=== PATIENT | female | born 1945 | race Caucasian/White ===

== ENCOUNTER 2019-08-30 11:39 | Emergency (ER) | payer MEDICARE, SELFPAY ==
[2019-08-30 12:21] VITALS: BP 122/51; PULSE 78; RESP 20; TEMP 37; O2SAT 96
--- NOTE | 2019-08-30 13:00 | ED.FEMALEGU ---
HPI - Female Genitourinary General Chief complaint: Urogenital-Female Stated complaint: pos uti Time Seen by Provider: 08/30/19 13:00 Source: patient Mode of arrival: ambulatory Limitations: no limitations History of Present Illness HPI Narrative: A 74 y/o female, who is a nonsmoker/nondrinker, presents to with c/o urinary frequency and urgency for 4-5 days. Pt has a PMHx of UTIs and notes that her current symptoms are similar. Pt states that she had to change clothes 5 times throughout the night because she could not make it to the bathroom in time. She denies a fever, N/V/D, dysuria, and ABD pain, and she has sensitivity to Macrobid Pertinent past history: recurrent UTIs Onset (ago): day(s) (4-5) Urinary symptoms: Urgency and Frequency Related Data Home Medications Medication Instructions Recorded Confirmed levothyroxine 75 mcg PO DAILY 08/30/19 08/30/19 lisinopril-hydrochlorothiazide 1 tablet PO DAILY 08/30/19 08/30/19 metoprolol tartrate 50 mg PO DAILY 08/30/19 08/30/19 teriflunomide [Aubagio] 14 mg PO DAILY 08/30/19 08/30/19 tolterodine 4 mg PO DAILY 08/30/19 08/30/19 triamcinolone acetonide 1 applic TOPICAL BID 08/30/19 08/30/19 Allergies Allergy/AdvReac Type Severity Reaction Status Date / Time iodine Allergy Unknown Swelling Verified 08/30/19 12:28 of Lip/Tongue/Throat Review of Systems Review of Systems: Narrative: General/Constitutional: Denies: weight loss,fever Eyes: Denies: Redness,discharge Ears/Nose/Throat: Denies: Epistaxis,ear discharge Respiratory: Denies: Hemoptysis Gastrointestinal: Denies: N/V/D, ABD pain, Bleeding-rectal Urinary: Reports: urinary frequency, urinary urgency; Denies: dysuria Skin: Denies: Lumps, eruption Neurologic: Denies: Focal Weakness,Sz Hematologic: Denies: Petechiae/Purpura Psychiatric: Denies: Suicidal ideation All systems reviewed & are unremarkable except as noted in HPI and below [facility] Social History Social History (Updated 08/30/19 @ 13:14 by Imani Nava) Smoking status: Never smoker Alcohol intake: never Comments PCP: Dr. Rodriguez At time of signature, agree with nursing past medical, surgical, social and family history. There is no relevant family history pertinent to the presenting complaint Exam Narrative: Exam Narrative: General Appearance: Well appearing, No distress EYE: PERRLA, Conjunctiva clear Ears: External ear normal Nose: Normal nose Mouth/Throat: Normal appearing, Normal lips Neck: Supple Respiratory: Airway patent, No respiratory distress Cardiovascular: RRR Abdomen: Soft, Non-tender, No masses Musculoskeletal: Full ROM Skin: Warm, Dry Neurological: A&O x3, CN II-X intact Psychiatric: Normal mood, Normal affect Course Vital Signs Vital signs: Vital Signs Temperature 98.6 F 08/30/19 12:21 Pulse Rate 78 08/30/19 12:21 Respiratory Rate 20 08/30/19 12:21 Blood Pressure 122/51 L 08/30/19 12:21 Pulse Oximetry 96 08/30/19 12:21 Temperature 98.6 F 08/30/19 12:21 Pulse Rate 78 08/30/19 12:21 Respiratory Rate 08/30/19 12:21 Blood Pressure 122/51 L 08/30/19 12:21 Pulse Oximetry 96 08/30/19 12:21 MDM - Female Genitourinary Lab Data Labs: Influenza A Screen Negative Reference Range: Negative Influenza B Screen Negative Reference Range: Negative Urine Glucose Negative Reference Range: Negative Urine Bilirubin 1+ Reference Range: Negative Urine Ketone Negative Reference Range: Negative Urine Specific Thurston 1.025 Reference Range:1.001-1.035 Urine Blood 2+ Reference Range: Negative * * Urine pH 5.5 Reference Range: 5.0-9.0 Urine Protein 2+ Reference Range: Negative Urine Urobilinogen 0.2 Refe
== END 2019-08-30 13:48 | disposition home or self-care (01) ==
PROVIDERS: Emergency Provider Emergency Medicine
DX: N30.00 Acute cystitis without hematuria (principal)
CPT/HCPCS: 81003; 87077; 87086; 87088; 87186; 87804; 99213; G0463

== ENCOUNTER 2020-02-18 13:08 | Outpatient (CLI) | payer MEDICARE, SELFPAY ==
--- NOTE | ~2020-02-18 | US_ITS ---
US thyroid INDICATION: Thyroid goiter TECHNIQUE: Real-time sonographic images of the thyroid gland were obtained. COMPARISON: No prior studies for comparison. FINDINGS: The right thyroid lobe measures 3.3 x 0.9 x 1.3 cm. The left thyroid lobe measures 2.7 x 0 .8 x 0.8 cm. There is normal echotexture and echogenicity throughout the thyroid gland. No discrete n odules identified. Normal vascular flow is present. IMPRESSION: 1. Normal thyroid without discrete nodule or abnormal vascularity. Reviewed, dictated and finalized at location A.
== END 2020-02-18 13:09 | disposition home or self-care (01) ==
PROVIDERS: PCP Internal Medicine; Visit Provider Nurse Practitioner
DX: E04.9 Nontoxic goiter, unspecified (principal)
CPT/HCPCS: 76536

== ENCOUNTER 2020-03-23 01:49 | Outpatient (CLI) | payer MEDICARE, SELFPAY ==
[2020-03-23 20:48] LABS: SARS-CoV-2 RNA PCR Negative
== END 2020-03-23 01:50 | disposition home or self-care (01) ==
LOC: ANHCOVIDDT 01:49
PROVIDERS: PCP Internal Medicine; Visit Provider Internal Medicine Gastroenterology
DX: Z01.812 Encounter for preprocedural laboratory examination (principal); Z20.828 Contact with and (suspected) exposure to other viral communicable diseases
CPT/HCPCS: 87635; C9803; U0003

== ENCOUNTER 2020-03-25 01:14 | Day surgery (SDC) | payer MEDICARE, SELFPAY ==
[2020-03-17 12:20] VITALS: BMI 27.4
[2020-03-25 07:28] VITALS: BP 144/63; PULSE 56; RESP 20; TEMP 36.6; O2SAT 99; BMI 25.2
[2020-03-25] MEDS: LACTATED RINGERS 1,000 ML 150 ML IV CONT (07:39)
--- NOTE | 2020-03-25 07:58 | WPDGICN ---
Assessment and Plan Assessment and plan (1) Anemia: Code(s): D64.9 - Anemia, unspecified Status: Acute Assessment and Plan: Patient with anemia of uncertain etiology. This been present long-term a GI endoscopy is required. Her hemoglobin is only mildly deficient at 11.2, hematocrit 34.8 MCV 93. Iron of 76 TIBC 223, 34% saturation with a ferritin of 661. These numbers make it hard to ascribe it to iron deficiency. But because of progressive long-term anemia GI endoscopy appears prudent. Plan is per Molly charles with both colonoscopy an EGD. Patient does give a distant history of acid reflux currently maintained on omeprazole. As stated both colonoscopy an EGD will be performed to assess for possible GI etiology for anemia. Otherwise consider anemia of chronic disease. GI Consult Note Consult date/time: 03/25/20 07:58 HPI: Stacy Crocker is a 74 year old female Presents for evaluation of anemia. Patient states she has been anemic for some time. No obvious blood loss has been encountered. She denies abdominal pain. Her bowel habits are normal. She has had no bleeding elsewhere. Review of Systems Review of Systems: All systems reviewed & are unremarkable except as noted in HPI and below PMFSH Past Medical History Medical History Anemia Arthritis Cellulitis CPAP (continuous positive airway pressure) dependence GERD (gastroesophageal reflux disease) Heart murmur Hiatal hernia History of blood transfusion HTN (hypertension) Hyperthyroidism Hypothyroid Multiple sclerosis Osteoporosis Sleep apnea Surgical History Surgical History H/O left wrist surgery with plate History of appendectomy History of bilateral knee replacement History of bunionectomy right Social History Social History Smoking status: Never smoker Alcohol intake: never Meds Home Medications and Allergies Home Medications Medication Instructions Recorded Confirmed Type lisinopril-hydrochlorothiazide 1 tablet PO DAILY 08/30/19 03/17/20 History teriflunomide [Aubagio] 14 mg PO DAILY 08/30/19 03/17/20 History tolterodine 4 mg PO DAILY 08/30/19 03/17/20 History triamcinolone acetonide 1 applic TOPICAL BID PRN 08/30/19 03/17/20 History dextroamphetamine 15 mg PO DAILY 03/17/20 03/17/20 History levothyroxine [Euthyrox] 50 mcg PO DAILY 03/17/20 03/17/20 History metoprolol succinate 75 mg PO DAILY 03/17/20 03/17/20 History omeprazole magnesium [Prilosec OTC] 20 mg PO DAILY 03/17/20 03/17/20 History Allergies Allergy/AdvReac Type Severity Reaction Status Date / Time iodine Allergy Unknown Swelling Verified 03/25/20 07:26 of Lip/Tongue/Throat Iodinated Contrast Media Allergy Swelling Verified 03/25/20 07:26 of Lip/Tongue/Throat Iodine and Iodide Containing Allergy Swelling Verified 03/25/20 07:26 Produc of Lip/Tongue/Throat Vital Signs Vital Signs - 24 hr 03/25/20 07:28 Temperature 97.9 F Pulse Rate 56 L Respiratory Rate 20 Blood Pressure 144/63 H Pulse Oximetry 99 Exam Narrative: Exam Narrative: Physical exam reveals patient to be alert. Vital signs stable. HEENT exam unremarkable. Lungs are clear to auscultation and percussion. Heart is without murmur or extra sounds. Abdominal exam bowel sounds are present soft nontender with no organomegaly. Digital external rectal exam normal.
--- NOTE | 2020-03-25 08:31 | WPDANESEPPF ---
Anes - Initial Pre Proc Eval Procedure: Operation Date: 03/25/20 08:30 Proposed Procedures p Esophagogastroduodenoscopy & Colonoscopy - Thaddeus Bonner MD Date/Time: 03/25/20 08:31 Surgeon: Thaddeus Bonner MD Pre Op Diagnosis: Iron Deficiency Anemia Patient Data Age: 74 Gender: F Height: 5 ft 2 in Weight: 62.6 kg Last Vital Signs Temp 97.9 F 03/25/20 07:28 Pulse 56 L 03/25/20 07:28 Resp 20 03/25/20 07:28 BP 144/63 H 03/25/20 07:28 Pulse Ox 99 03/25/20 07:28 Allergies Allergy/AdvReac Type Severity Reaction Status Date / Time iodine Allergy Unknown Swelling Verified 03/25/20 07:26 of Lip/Tongue/Throat Iodinated Contrast Media Allergy Swelling Verified 03/25/20 07:26 of Lip/Tongue/Throat Iodine and Iodide Containing Allergy Swelling Verified 03/25/20 07:26 Produc of Lip/Tongue/Throat Home Medications Medication Instructions Recorded Confirmed Type lisinopril-hydrochlorothiazide 1 tablet PO DAILY 08/30/19 03/17/20 History teriflunomide [Aubagio] 14 mg PO DAILY 08/30/19 03/17/20 History tolterodine 4 mg PO DAILY 08/30/19 03/17/20 History triamcinolone acetonide 1 applic TOPICAL BID PRN 08/30/19 03/17/20 History dextroamphetamine 15 mg PO DAILY 03/17/20 03/17/20 History levothyroxine [Euthyrox] 50 mcg PO DAILY 03/17/20 03/17/20 History metoprolol succinate 75 mg PO DAILY 03/17/20 03/17/20 History omeprazole magnesium [Prilosec OTC] 20 mg PO DAILY 03/17/20 03/17/20 History Patient hx anesthesia problems: none Family hx anesthesia problems: none [facility] Past Medical History Medical History Anemia Arthritis Cellulitis CPAP (continuous positive airway pressure) dependence GERD (gastroesophageal reflux disease) Heart murmur Hiatal hernia History of blood transfusion HTN (hypertension) Hyperthyroidism Hypothyroid Multiple sclerosis Osteoporosis Sleep apnea Surgical History Surgical History H/O left wrist surgery with plate History of appendectomy History of bilateral knee replacement History of bunionectomy right Social History Social History Smoking status: Never smoker Alcohol intake: never Anes - Eval Final PreProcedure Day of Procedure 03/25/20 08:31 Patient weight: normal Heart: regular rate and rhythm Lungs: clear to auscultation Airway: Mallampati scale class II Neurological: alert and oriented Last oral intake: >/= 8 hours ASA classification: III Emergent: no Anesthetic plan: proceed Anesthesia type and monitoring: general GIVS and standard monitoring Informed Consent: The patient's anesthetic plan and its attendant risks and benefits were discussed with the patient/family/POA. Questions were solicited and answers provided to the satisfaction of the patient/family/POA.
[2020-03-25 09:08] VITALS: BP 98/50; PULSE 56; RESP 17; O2SAT 99
[2020-03-25 09:18] VITALS: BP 115/67; PULSE 60; RESP 18; O2SAT 100
[2020-03-25 09:28] VITALS: BP 130/65; PULSE 58; RESP 17; O2SAT 100
== END 2020-03-25 10:16 | disposition home or self-care (01) ==
PROVIDERS: PCP Internal Medicine; Visit Provider Internal Medicine Gastroenterology
PROC: 0DJ08ZZ Inspection of Upper Intestinal Tract, Via Natural or Artificial Opening Endoscopic (ICD-10-PCS; CPT 43235; principal; 2020-03-25 08:30)
DX: D64.9 Anemia, unspecified (principal); K63.5 Polyp of colon; K64.8 Other hemorrhoids; K44.9 Diaphragmatic hernia without obstruction or gangrene; K21.9 Gastro-esophageal reflux disease without esophagitis; I10 Essential (primary) hypertension; E03.9 Hypothyroidism, unspecified; G47.33 Obstructive sleep apnea (adult) (pediatric); I42.9 Cardiomyopathy, unspecified; G35 Multiple sclerosis; Z96.653 Presence of artificial knee joint, bilateral; Z79.899 Other long term (current) drug therapy
CPT/HCPCS: 45385; 43235; J2704; J7120

== ENCOUNTER 2022-12-19 15:30 | Emergency (ER) | payer MEDICARE, SELFPAY ==
--- NOTE | ~2022-12-19 | XR_ITS ---
EXAMINATION: XR finger 1st RT min 2V DATE: 12/19/2022 16:17 INDICATION: Right thumb pain and swelling. TECHNIQUE: 3 views of right thumb were obtained. COMPARISON: None. FINDINGS: There is radial subluxation of first distal phalanx with respect to the proximal phalanx. S capholunate dissociation is noted. There is old fracture of distal radius. There is severe osteoarthr itis of first carpometacarpal joint and first interphalangeal joint. 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 Reviewed, dictated and finalized at location A.
[2022-12-19 15:48] VITALS: BP 141/67; PULSE 66; RESP 18; TEMP 36.2; O2SAT 96
[2022-12-19 15:51] VITALS: BP 141/67; PULSE 66; RESP 18; TEMP 36.2; O2SAT 96
--- NOTE | 2022-12-19 16:06 | ED.GENADULT ---
HPI - General Adult General Chief complaint: Extremity Injury, Upper Stated complaint: swollen rt thumb Time Seen by Provider: 12/19/22 15:59 Source: patient and RN notes reviewed Mode of arrival: ambulatory Limitations: no limitations History of Present Illness HPI narrative: Patient presents today complaining of swelling, redness, and pain to her right thumb times 2-3 days. Denies fever. Currently rates her pain 9/10 and has been taking Advil with little relief. Denies numbness or tingling. Reports she does have some deformity of her thumb and, ?bump? to the ulnar side at baseline. Denies history of gout. No injury or trauma to the finger. Related Data Home Medications Medication Instructions Recorded Confirmed lisinopril 10 1 tablet PO DAILY 08/30/19 12/19/22 mg-hydrochlorothiazide 12.5 mg tablet dextroamphetamine sulfate 15 mg 15 mg PO DAILY 03/17/20 12/19/22 capsule,extended release levothyroxine 50 mcg tablet 50 mcg PO DAILY 03/17/20 12/19/22 (Euthyrox) metoprolol succinate 50 mg 75 mg PO DAILY 03/17/20 12/19/22 tablet,extended release 24 hr alpha lipoic acid 200 mg tablet 1,200 mg PO DAILY 12/19/22 12/19/22 amlodipine 2.5 mg tablet 2.5 mg PO DAILY 12/19/22 12/19/22 cholecalciferol (vitamin D3) 125 75 unit PO DAILY 12/19/22 12/19/22 mcg (5,000 unit) tablet (Vitamin D3) exemestane 25 mg tablet 25 mg PO DAILY 12/19/22 12/19/22 levocarnitine 500 mg capsule 500 mg PO QID 12/19/22 12/19/22 loratadine 5 mg-pseudoephedrine ER 1 tablet PO Q12H PRN Congestion 12/19/22 12/19/22 120 mg tablet,extended release,12hr (Claritin-D 12 Hour) pyridoxine (vitamin B6) 200 mg 200 mg PO DAILY 12/19/22 12/19/22 tablet,extended release vibegron 75 mg tablet (Gemtesa) 75 mg PO DAILY 12/19/22 12/19/22 Allergies Allergy/AdvReac Type Severity Reaction Status Date / Time iodine Allergy Unknown Swelling Verified 12/19/22 15:49 of Lip/Tongue/Throat Iodinated Contrast Media Allergy Swelling Verified 12/19/22 15:49 of Lip/Tongue/Throat Iodine and Iodide Containing Allergy Swelling Verified 12/19/22 15:49 Produc of Lip/Tongue/Throat Review of Systems Review of Systems: CONSTITUTIONAL: Denies body aches, fever, chills, or sweats. EYES: Denies visual changes, redness, or discharge. ENT: Denies rhinorrhea, congestion, sore throat, or otalgia. CARDIOVASCULAR: Denies chest pain, palpitations, or edema. RESPIRATORY: Denies cough or dyspnea. GASTROINTESTINAL: Denies abdominal pain, nausea, vomiting, or diarrhea. GENITOURINARY: Denies dysuria or hematuria. SKIN: Denies rash, itching, or wounds. MUSCULOSKELETAL: Denies back pain.+ right thumb redness, swelling, pain NEUROLOGIC: Denies headache, numbness, tingling, or weakness. PSYCH: Denies depression or anxiety. [facility] Past Medical History Medical History (Updated 12/19/22 @ 16:56 by Leila Carney, TWAN, ) Anemia Arthritis Cellulitis CPAP (continuous positive airway pressure) dependence GERD (gastroesophageal reflux disease) Heart murmur Hiatal hernia History of blood transfusion HTN (hypertension) Hyperthyroidism Hypothyroid Multiple sclerosis Osteoporosis Sleep apnea Surgical History Surgical History H/O left wrist surgery with plate History of appendectomy History of bilateral knee replacement History of bunionectomy right Family History Family History Father Emphysema lung Mother Emphysema lung Sibling Heart disease Sibling Polymyositis Social History Social History Smoking status: Never smoker Alcohol intake: never Substance use: never Comments At time of signature, I have reviewed and agree with nursing past medical, surgical, social and family history unless otherwise noted. Please see nursing chart
== END 2022-12-19 17:00 | disposition home or self-care (01) ==
PROVIDERS: Emergency Provider Nurse Practitioner; PCP Internal Medicine
DX: M25.441 Effusion, right hand (principal); M19.90 Unspecified osteoarthritis, unspecified site; K21.9 Gastro-esophageal reflux disease without esophagitis; R01.1 Cardiac murmur, unspecified; I10 Essential (primary) hypertension; E05.90 Thyrotoxicosis, unspecified without thyrotoxic crisis or storm; E03.9 Hypothyroidism, unspecified; G35 Multiple sclerosis; M81.0 Age-related osteoporosis without current pathological fracture; Z96.653 Presence of artificial knee joint, bilateral
CPT/HCPCS: 73140; 99213; G0463

== ENCOUNTER 2024-03-20 10:55 | Emergency (ER) | payer MEDICARE, SELFPAY ==
[2024-03-20 11:13] VITALS: BP 114/44; PULSE 102; RESP 16; TEMP 36.6; O2SAT 97
--- NOTE | 2024-03-20 11:49 | ED.FEMALEGU ---
HPI - Female Genitourinary General Chief complaint: Urogenital-Female Stated complaint: Think I have a UTI Time Seen by Provider: 03/20/24 11:49 Source: patient Mode of arrival: ambulatory Limitations: no limitations History of Present Illness HPI Narrative: 78-year-old female presents with complaint of urinary incontinence for the past 2-3 days. Patient reports that she takes a prescription medication, gemtesa, to help with urinary incontinence. Denies dysuria, frequency, urgency. Is concerned since medication is not helping with urinary incontinence she may have a urinary tract infection. No abdominal or back pain. All systems reviewed and negative except as noted above. Related Data Home Medications Medication Instructions Recorded Confirmed lisinopril 10 1 tablet PO DAILY 08/30/19 12/19/22 mg-hydrochlorothiazide 12.5 mg tablet dextroamphetamine sulfate 15 mg 15 mg PO DAILY 03/17/20 12/19/22 capsule,extended release levothyroxine 50 mcg tablet 50 mcg PO DAILY 03/17/20 12/19/22 (Euthyrox) metoprolol succinate 50 mg 75 mg PO DAILY 03/17/20 12/19/22 tablet,extended release 24 hr alpha lipoic acid 200 mg tablet 1,200 mg PO DAILY 12/19/22 12/19/22 amlodipine 2.5 mg tablet 2.5 mg PO DAILY 12/19/22 12/19/22 cholecalciferol (vitamin D3) 125 75 unit PO DAILY 12/19/22 12/19/22 mcg (5,000 unit) tablet (Vitamin D3) exemestane 25 mg tablet 25 mg PO DAILY 12/19/22 12/19/22 levocarnitine 500 mg capsule 500 mg PO QID 12/19/22 12/19/22 pyridoxine (vitamin B6) 200 mg 200 mg PO DAILY 12/19/22 12/19/22 tablet,extended release vibegron 75 mg tablet (Gemtesa) 75 mg PO DAILY 12/19/22 12/19/22 Allergies Allergy/AdvReac Type Severity Reaction Status Date / Time cephalexin [From Keflex] Allergy Unknown Verified 03/20/24 11:31 iodine Allergy Anaphylaxis Verified 03/20/24 11:32 iohexol Allergy Anaphylaxis Verified 03/20/24 11:32 [From contrast - CT, X-RAY] nitrofurantoin Allergy Unknown Verified 03/20/24 11:31 [From Macrobid] Review of Systems Review of Systems: CONSTITUTIONAL: Denies fever, chills, or sweats. EYES: Denies visual changes, redness, or discharge. ENT: Denies rhinorrhea, congestion, sore throat, or otalgia. CARDIOVASCULAR: Denies chest pain, palpitations, or edema. RESPIRATORY: Denies cough or dyspnea. GASTROINTESTINAL: Denies abdominal pain, nausea, vomiting, or diarrhea. GENITOURINARY: Denies dysuria or hematuria. Reports urinary incontinence. SKIN: Denies rash or itching. MUSCULOSKELETAL: Denies back pain, joint pain, or myalgia. NEUROLOGIC: Denies headache, numbness, or weakness. PSYCHIATRIC: Denies anxiety or depression. All other systems reviewed are negative, except as documented in HPI. [facility] Past Medical History Medical History (Updated 03/20/24 @ 12:38 by Kayley Henderson NP) Anemia Arthritis Cellulitis CPAP (continuous positive airway pressure) dependence GERD (gastroesophageal reflux disease) Heart murmur Hiatal hernia History of blood transfusion HTN (hypertension) Hyperthyroidism Hypothyroid Multiple sclerosis Osteoporosis Sleep apnea Surgical History Surgical History H/O left wrist surgery with plate History of appendectomy History of bilateral knee replacement History of bunionectomy right Family History Family History Father Emphysema lung Mother Emphysema lung Sibling Heart disease Sibling Polymyositis Social History Social History Smoking status: Never smoker Alcohol intake: never Substance use: never Comments At time of signature, agree with nursing past medical, surgical, social and family history. There is no relevant family history pertinent to the presenting complaint. Exam Narrative: GENERAL: This is a well-nourished, wel
[2024-03-20 12:29] LABS: EDUAAPPEAR Clear; EDUABILI Negative; EDUABLOOD Negative; EDUACOLOR1 Yellow; EDUAGLUCOSE Negative; EDUAKETONE Negative; EDUALEUKO Negative; EDUANITRATE Negative; EDUAPROTEIN Negative; EDUAUROBILI 0.2
== END 2024-03-20 12:41 | disposition home or self-care (01) ==
PROVIDERS: Emergency Provider Nurse Practitioner Family; PCP Internal Medicine
DX: R32 Unspecified urinary incontinence (principal); B95.2 Enterococcus as the cause of diseases classified elsewhere; K21.9 Gastro-esophageal reflux disease without esophagitis; R01.1 Cardiac murmur, unspecified; I10 Essential (primary) hypertension; E03.9 Hypothyroidism, unspecified; E05.90 Thyrotoxicosis, unspecified without thyrotoxic crisis or storm; G35 Multiple sclerosis; M81.0 Age-related osteoporosis without current pathological fracture; G47.30 Sleep apnea, unspecified; M19.90 Unspecified osteoarthritis, unspecified site; Z96.653 Presence of artificial knee joint, bilateral
CPT/HCPCS: 81003; 87077; 87086; 87088; 87181; 99213; G0463

== ENCOUNTER 2024-04-03 11:11 | Emergency (ER) | payer MEDICARE, SELFPAY ==
[2024-04-03 11:40] VITALS: BP 123/43; PULSE 61; RESP 18; TEMP 36.5; O2SAT 100
--- NOTE | 2024-04-03 11:57 | ED.SKABFB ---
HPI - Skin/Abscess/Foreign Bdy General Chief complaint: Skin/Abscess/Foreign Body Stated complaint: shingles Time Seen by Provider: 04/03/24 11:54 Source: patient, RN notes reviewed and old records reviewed Mode of arrival: ambulatory Limitations: no limitations History of Present Illness HPI narrative: 79 year old female who presents to [facility] care with complaints of red flaky excoriated rash on her arms upper thigh back and chest which is itchy. Patient reports that she initially noted rash on arms and upper leg on the 24 of April after taking Amoxicillin, she called her doctor and he changed her medication to Macrobid and rash seems worse now on back and chest also . Patient denies any new laundry products, soaps, foods or other new medications. Patient reports no difficulty with her breathing or with swallowing. Patient has scratched right forearm badly with skin very excoriated states itchy rash with some discomfort at times also. Patient reports that she has mad an appointment with security team lead. MD complaint: rash Onset (ago): day(s) (10 days.) Severity: moderate Treatments prior to arrival: other (hydrocortisone ointment) Related Data Home Medications Medication Instructions Recorded Confirmed lisinopril 10 1 tablet PO DAILY 08/30/19 12/19/22 mg-hydrochlorothiazide 12.5 mg tablet dextroamphetamine sulfate 15 mg 15 mg PO DAILY 03/17/20 12/19/22 capsule,extended release levothyroxine 50 mcg tablet 50 mcg PO DAILY 03/17/20 12/19/22 (Euthyrox) metoprolol succinate 50 mg 75 mg PO DAILY 03/17/20 12/19/22 tablet,extended release 24 hr alpha lipoic acid 200 mg tablet 1,200 mg PO DAILY 12/19/22 12/19/22 amlodipine 2.5 mg tablet 2.5 mg PO DAILY 12/19/22 12/19/22 cholecalciferol (vitamin D3) 125 75 unit PO DAILY 12/19/22 12/19/22 mcg (5,000 unit) tablet (Vitamin D3) exemestane 25 mg tablet 25 mg PO DAILY 12/19/22 12/19/22 levocarnitine 500 mg capsule 500 mg PO QID 12/19/22 12/19/22 pyridoxine (vitamin B6) 200 mg 200 mg PO DAILY 12/19/22 12/19/22 tablet,extended release vibegron 75 mg tablet (Gemtesa) 75 mg PO DAILY 12/19/22 12/19/22 Allergies Allergy/AdvReac Type Severity Reaction Status Date / Time cephalexin [From Keflex] Allergy Unknown Verified 03/20/24 11:31 iodine Allergy Anaphylaxis Verified 03/20/24 11:32 iohexol Allergy Anaphylaxis Verified 03/20/24 11:32 [From contrast - CT, X-RAY] nitrofurantoin Allergy Unknown Verified 03/20/24 11:31 [From Macrobid] Review of Systems Review of Systems: CONSTITUTIONAL: Denies fever, chills, or sweats. CARDIOVASCULAR: Denies chest pain, palpitations, or edema. RESPIRATORY: Denies cough or dyspnea. SKIN: Reports red scaly itchy rash to bilateral forearms and upper legs to back and chest also, some discomfort MUSCULOSKELETAL: Denies joint pain or myalgia. NEUROLOGIC: Denies headache, numbness, or weakness. All systems reviewed & are unremarkable except as noted in HPI and below PMFSH Past Medical History Medical History (Updated 04/04/24 @ 17:08 by Nataliia Palma NP) Anemia Arthritis Cellulitis CPAP (continuous positive airway pressure) dependence GERD (gastroesophageal reflux disease) Heart murmur Hiatal hernia History of blood transfusion HTN (hypertension) Hyperthyroidism Hypothyroid Multiple sclerosis Osteoporosis Sleep apnea Surgical History Surgical History H/O left wrist surgery with plate History of appendectomy History of bilateral knee replacement History of bunionectomy right Family History Family History Father Emphysema lung Mother Emphysema lung Sibling Heart disease Sibling Polymyositis Social History Social History Smoking status: Never smoker Alcohol intake: never Substance use: never Comments At time of sign
== END 2024-04-03 12:28 | disposition home or self-care (01) ==
PROVIDERS: Emergency Provider Registered Nurse; PCP Internal Medicine
DX: L25.9 Unspecified contact dermatitis, unspecified cause (principal); T37.8X5A Adverse effect of other specified systemic anti-infectives and antiparasitics, initial encounter; K21.9 Gastro-esophageal reflux disease without esophagitis; R01.1 Cardiac murmur, unspecified; I10 Essential (primary) hypertension; E05.90 Thyrotoxicosis, unspecified without thyrotoxic crisis or storm; E03.9 Hypothyroidism, unspecified; G35 Multiple sclerosis; M81.0 Age-related osteoporosis without current pathological fracture; G47.30 Sleep apnea, unspecified; Z96.653 Presence of artificial knee joint, bilateral
CPT/HCPCS: 99213; G0463

== ENCOUNTER 2024-11-13 13:49 | Emergency (ER) | payer MEDICARE, SELFPAY ==
--- NOTE | ~2024-11-13 | XR_ITS ---
XR chest 2V 11/13/2024 14:26 Indication: Cough and fever Procedure: 2 view chest Comparison: 02/26/2013 Findings: Borderline heart size. No focal air space disease, pulmonary edema, pleural effusion or miguel pected pneumothorax. Large hiatal hernia. Apical pleural thickening/scarring. Moderate thoracic spond ylosis. Impression: 1: Large hiatal hernia. Reviewed, dictated and finalized at location A. Impression: 1: Large hiatal hernia.
--- OUTSIDE RECORDS SUMMARY | 2024-11-13 13:57 | XMS_ITS | Clinical Summary ---
Author Organization [facility] Address [address] [place] [id number] Phone Care Team Providers Care Chief Privacy Officer Name Role Phone Thomas Akbar MD Primary Care Provider [phone] Allergies Active Allergy Reactions Criticality Noted Date Comments Iodine Anaphylaxis,Swelling High 02/16/2013 Medications LISINOPRIL ORAL Take by mouth. Active METOPROLOL TARTRATE ORAL Take by mouth daily. Active HYDROCHLOROTHIAZ RIK ORAL Take by mouth daily. Active IBUPROFEN (ADVIL ORAL) Take by mouth. As needed Active DEXTROAMPHETAMIN E SULFATE (DEXTROAMPHETAMI NE ORAL) Take by mouth daily. Active Social History Tobacco Use Types Packs/Day Years Used Date Smoking Tobacco: Never Assessed Comments Unknown Sex and Gender Information Value Date Recorded Sex Assigned at Not on file Legal Sex Female 4:40 AM [employer]MENT [employer] Gender Identity Not on file Sexual Orientation Not on file Plan of Treatment Health Maintenance Due Date Last Done Comments DTAP/TDAP/TD VACCINES (1 - Tdap) 1964 PNEUMOCOCCAL VACCINE 50+ YEA RS (1 of 1 - PCV) 1995 ZOSTER VACCINE (1 of 2) 1995 OSTEOPOROSIS SCREENING 2010 COLORECTAL SCREENING 02/18/2018 02/18/2013, 02/18/2013, 01/17/2006, Additional history exists RSV VACCINE (60+ or ) (1 - 1-dose 75+ series) 2020 INFLUENZA VACCINE (#1) 2024 Procedures Procedure Name Priority Date/Time Associated Diagnosis Comments ENDOSCOPY, COLON, DIAGNOSTIC Routine 02/18/2013 from Last 3 Months or Most Recently Relevant to Health Maintenance Results * (ABNORMAL) ENDOSCOPY, COLON, DIAGNOSTIC (02/18/2013) Olayinka Salvador MD GI PROCEDURE ORDERABLES Edited [facility] from Last 3 Months or Most Recently Relevant to Health Maintenance Insurance MEDICARE PART A AND B [employer] [facility] Care Teams Chief Privacy Officer Relationship Specialty Start Date End Date Thomas Akbar MD [address] [facility] [address] [place] [id number] PCP - General 07/12/15
--- OUTSIDE RECORDS SUMMARY | 2024-11-13 13:57 | XMS_ITS | Encounter Summary ---
Author Organization [facility] Healthcare Address [address] [place] [address] Care Team Providers Care Attendant Child Activity Name Role Phone Clint Rodriguez MD Primary Care Provider Lucio Gonzales MD Unavailable [phone] Jori Espinoza MD Primary Care Provider + Darleen Bailey MD Unavailable [phone] Cuong Figueroa DO Unavailable +[phone] Dickson, Vicki Sam MD PhD Unavailable [phone] Erin Markham MD Unavailable [phone] Siria Enriquez NP Unavailable + [phone] Darleen Bailey MD Unavailable [phone] Mirza Ryan MD Unavailable +[phone] Encounter Details Date Type Department Care Team (Late st Contact Info) Description 02/12/2018 Community Orders [facility] EpicCare Link Giles Vasquez MD [address] [facility] [address] [place] [address] Pain (Primary Dx); Swelling; Phlebitis; Pain in left leg Social History Tobacco Use Types Packs/Day Years Used Date Smoking Tobacco: Never Smokeless Tobacco: Never Alcohol Use Standard Drinks/Week Comments No 0 (1 standard drink = 0.6 oz pur e alcohol) Comments Unknown Sex and Gender Information Value Date Recorded Sex Assigned at Not on file Legal Sex Female 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 Gender Identity Female 02/17/2021 9:58 AM CDT Sexual Orientation Straight 02/17/2021 9: 58 AM CDT documented as of this encounter Plan of Treatment Not on file documented as of this encounter Results * US Vein Duplex Lower Extremity Left Limited (02/12/2018 1:08 PM CDT) Anatomical Region Laterality Modality Vascular Left Ultrasound 02/12/2018 12:5 3 PM CDT Narrative 02/12/2018 4:44 PM CDT [facility] - Department of Vascular Surgery, Vascular Laboratory [address] [place] [address] Lower Extremity Venous Ultrasound Report Patient Name: ROLO GRANADOS L : 1945 (72y 10m) Study Date: 02/12/2018 12:53:41 PM Gender: F Tech: ME Location: Ref.Physician: GILES VASQUEZ Height(Cm): BSA: Weight(Kg): Quality: Adequate Order Physician: GILES VASQUEZ Procedures: Vascular Report: Venous Duplex imaging was performed in the left lower extremity. The common femoral, femoral, popliteal, posterior tibial, peroneal veins were evaluated for patency, spontaneity and phasicity with Doppler, compression and augmentation maneuvers. Great saphenous vein proximal at the junction was evaluated with compression maneuvers. Indications: Pain Swelling Phlebitis Pain in left leg. Findings: Performing Care Process Manager: Danna Beltran RVT. Left: Venous Doppler signals in the left lower extremity are within normal limits for spontaneity and phasicity and respond normally to augmentation maneuvers. No evidence of deep vein thrombus by duplex, proximal to the calf. Comments: Non-vascular, anechoic structure at the left distal thigh noted of uncertain etiology. Conclusions: There is no evidence of acute deep vein thrombosis on the left. Noninvasive venous studies cannot rule out isolated calf vein obstruction. Non-vascular, anechoic structure at the left distal thigh noted of uncertain etiology. History: Not identified. Previous Studies: No previous studies for comparison. Disclaimer: The signing physician has reviewed all images pertaining to this test. These images and this report will be retained in the patient chart by the Vascular Laboratory for the legally required time period. This chart constitutes the legal record of any testing performed. Electronically Signed By: Niraj Teran MD [facility] 2018-02-12 16:44:22 CDT CC: CC: Procedure Note Niraj Teran MD - 02/12/2018 [facility] - Department of Vascular Surgery,Vascular Laboratory [address] [place] [address] Lower Extremity Venous Ultrasound Report Patient Name: ROLO GRANADOS LPatient ID: [id number] : 1945 (72y 10m)Study Date: 02/12/2018 12:53:41 PM Gender: FAccession #: [id number] Tech: IALocation: Ref.Physician: Al VASQUEZ(Cm): BSA: Weight(Kg): Quality: AdequateOrder Physician: GILES VASQUEZ Procedures: Vascular Report: Venous Duplex imaging was performed in the left lower extremity. Thecommon femoral, femoral, popliteal, posterior tibial, peroneal veins were evaluated forpatency, spontaneity and phasicity with Doppler, compression and augmentationmaneuvers. Great saphenous vein proximal at the junction was evaluated with compressionmaneuvers. Indications: Pain Swelling Phlebitis Pain in left leg. Findings: Performing Care Process Manager: Danna Beltran RVT. Left: Venous Doppler signals in the left lower extremity are within normallimits for spontaneity and phasicity and respond normally to augmentation maneuvers.No evidence of deep vein thrombus by duplex, proximal to the calf. Comments: Non-vascular, anechoic structure at the left distal thigh noted ofuncertain etiology. Conclusions: There is no evidence of acute deep vein thrombosis on the left.Noninvasive venous studies cannot rule out isolated calf vein obstruction. Non-vascular, anechoic structure at the left distal thigh noted ofuncertain etiology. History: Not identified. Previous Studies: No previous studies for comparison. Disclaimer: The signing physician has reviewed all images pertaining to this test.These images and this report will be retained in the patient chart by the VascularLaboratory for the legally required time period. This chart constitutes the legal record ofany testing performed. Electronically Signed By: Niraj Teran MD 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 Sara Brown RN generated from [facility] 04/13/2014 04/13/2014 04/10/2021 3:32 PM C DT documented as of this encounter Care Teams Attendant Child Activity Relationship Specialty Start Date End Date Clint Rodriguez MD [address] [address] PCP - General 10/19/16 10/18/19 Jori Espinoza MD [address] [facility] [place] [address] PCP - General Internal Medicine 10/19/19 Lucio Gonzales MD [address] [address] Security Threat Analyst Cardiology 04/28/19 Darleen Bailey MD [address] [facility] [place] [address] Radiation Oncologist Radiation Oncology 05/16/21 Cuong Figueroa DO [address] [place] [address] Medical Oncologist/Powderer Hematology and Oncology 05/16/21 08/26/23 AftVicki MD PhD [address] [place] [address] Surgeon Surgical Oncology 05/16/21 Erin Markham MD [address] [address] Wharf Laborer Obstetrics and Gynecology 05/16/21 Siria Enriquez, FIONA [address] [place] [address] 180 [facility] [place] [address] [place] [address] Nurse Practitioner Medical Oncology 08/27/23 Darleen Bailey MD [address] [place] [address] Radiation Oncologist Radiation Oncology 03/18/24 Mirza Ryan MD [address] [facility] [address] [address] Consulting Physician Nephrology 09/01/24 documented as of this encounter
--- OUTSIDE RECORDS SUMMARY | 2024-11-13 13:57 | XMS_ITS | Encounter Summary ---
Author Organization [facility] Address [address] [place] [address] Phone Care Team Providers Care Sports Manager Name Role Phone Lucio Gonzales MD Unavailable Jori Espinoza MD Primary Care Provider + Darleen Bailey MD Unavailable [phone] Cuong Figueroa DO Unavailable [phone] Aft, Vicki Sam MD PhD Unavailable [phone] Erin Markham MD Unavailable [phone] Siria Enriquez SKI MAKER WOOD Unavailable + [phone] Darleen Bailey MD Unavailable [phone] Mirza Ryan MD Unavailable [phone] Encounter Details Date Type Department Care Team (Late st Contact Info) Description 09/18/2021 Social Work Research [facility] Physicians [facility] Oncology [facility] [address] [place] [address] Lexis Schultz LCSW Social History Tobacco Use Types Packs/Day Years Used Date Smoking Tobacco: Never Smokeless Tobacco: Never Alcohol Use Standard Drinks/Week Comments No 0 (1 standard drink = 0.6 oz pur e alcohol) Humiliation, Afraid, Rape, and Kick questionnair e Answer Date Recorded Fear of Current or Ex-Partner No Emotionally Abused No 06/05/2019 Physically Abused No 06/05/2019 Sexually Abused No 06/05/2019 Social Connection and Isolation Panel [NHANES] A nswer Date Recorded Frequency of Communication with Friends and Fami ly Not on file 06/05/2019 Frequency of Social Gatherings with Friends and Family Not on file 06/05/2019 Attends Orthodoxy Services Not on file 06/05 Active Member of Clubs or Organizations Not on f ile 06/05/2019 Attends Club or Organization Meetings Not on vamshi e 06/05/2019 Marital Status 06/05/2019 AUDIT-C Answer Date Recorded Q1: How often do you have a drink containing alc ohol? Never 05/20/2021 Average Number of Drinks Not on file 021 Q3: How often do you have si x or more drinks on one occasion? 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 [address] PCP - General Internal Medicine 10/19/19 Lucio Gonzales MD Immunology Teacher Cardiology 04/28/19 Darleen Bailey MD [address] [place] [address] [place] [address] Radiation Oncologist Radiation Oncology 05/16/21 Cuong Figueroa DO [address] [place] [address] Medical Oncologist/Traveling Construction Superintendent Hematology and Oncology 05/16/21 08/26/23 AftVicki MD PhD [address] [place] [address] Surgeon Surgical Oncology 05/16/21 Erin Markham MD [address] [facility] [address] [place] [address] Metal Trades Instructor Obstetrics and Gynecology 05/16/21 Siria Enriquez, FIONA [address] [place] [address] [address] [facility] [place] [address] [place], [place] [address] Nurse Practitioner Medical Oncology 08/27/23 Darleen Bailey MD [address] [place] [id number] Radiation Oncologist Radiation Oncology 03/18/24 Mirza Ryan MD [address] [facility] [address] [address] Consulting Physician Nephrology 09/01/24 documented as of this encounter
--- OUTSIDE RECORDS SUMMARY | 2024-11-13 13:57 | XMS_ITS | Encounter Summary ---
Author Organization [facility] Healthcare Address [address] [place] [address] Care Team Providers Care Lump Maker Name Role Phone Clint Rodriguez MD Primary Care Provider Lucio Gonzales MD Unavailable Jori Espinoza MD Primary Care Provider + Darleen Bailey MD Unavailable [phone] Cuong Figueroa DO Unavailable [phone] Vicki Forman MD PhD Unavailable [phone] Erin Markham MD Unavailable [phone] Siria Enriquez NP Unavailable + [phone] Darleen Bailey MD Unavailable [phone] Mirza Ryan MD Unavailable [phone] Encounter Details Date Type Department Care Team (Late st Contact Info) Description 04/11/2018 Documentation [facility] Social Work [address] [place] [address] Keeley Rogel, [address] [address] Social History Tobacco Use Types Packs/Day Years Used Date Smoking Tobacco: Never Smokeless Tobacco: Never Alcohol Use Standard Drinks/Week Comments No 0 (1 standard drink = 0.6 oz pur e alcohol) Comments Unknown Sex and Gender Information Value Date Recorded Sex Assigned at Not on file Legal Sex Female 1:50 AM SERVICES TECH Gender Identity Female 02/17/2021 9:58 AM CDT Sexual Orientation Straight 02/17/2021 9: 58 AM CDT documented as of this encounter Plan of Treatment Not on file documented as of this encounter Visit Diagnoses Not on filedocumented in this encounter Additional Health Concerns Infection Onset Date Last Indicated 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 Sara Brown RN generated from [facility] 04/13/2014 04/13/2014 04/10/2021 3:32 PM C DT documented as of this encounter Care Teams Lump Maker Relationship Specialty Start Date End Date Clint Rodriguez MD [address] [address] PCP - General 10/19/16 10/18/19 Jori Espinoza MD [address] [facility] [place] [address] PCP - General Internal Medicine 10/19/19 Lucio Gonzales MD [address] [address] Advanced Manufacturing Consultant Cardiology 04/28/19 Darleen Bailey MD [address] [facility] [place] [address] Radiation Oncologist Radiation Oncology 05/16/21 Cuong Figueroa DO [address] [place] [address] Medical Oncologist/Radio Aerial Installer Hematology and Oncology 05/16/21 08/26/23 Aft, Vicki Sam MD PhD [address] [place] [address] Surgeon Surgical Oncology 05/16/21 Erin Markham MD [address] [address] Inspector Packager Obstetrics and Gynecology 05/16/21 Siria Enriquez, FIONA [address] [place] [address] Nurse Practitioner Medical Oncology 08/27/23 Darleen Bailey MD [address] [place] [address] Radiation Oncologist Radiation Oncology 03/18/24 Mirza Ryan MD [address] [address] Consulting Physician Nephrology 09/01/24 documented as of this encounter
--- OUTSIDE RECORDS SUMMARY | 2024-11-13 13:57 | XMS_ITS | Encounter Summary ---
Author Organization [facility] Address [address] [place] [address] Phone Care Team Providers Care Telecommunications Equipment Installer Name Role Phone Clint Rodriguez MD Primary Care Provider [phone] Lucio Gonzales MD Unavailable [phone] Jori Espinoza MD Primary Care Provider + Darleen Bailey MD Unavailable [phone] Cuong Figueroa DO Unavailable [phone] AftVicki MD PhD Unavailable [phone] Erin Markham MD Unavailable [phone] Siria Enriquez VOLUNTEER FIRE FIGHTER Unavailable + [phone] Darleen Bailey MD Unavailable [phone] Mirza Ryan MD Unavailable [phone] Encounter Details Date Type Department Care Team (Latest Contact Info) Description 07/29/2018 Orders Only [facility] Scanning, Provider Social History Tobacco Use Types Packs/Day Years Used Date Smoking Tobacco: Never Smokeless Tobacco: Never Alcohol Use Standard Drinks/Week Comments No 0 (1 standard drink = 0.6 oz pur e alcohol) Comments No Sex and Gender Information Value Date Recorded Sex Assigned at Not on file Legal Sex Female 1:50 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 Gender Identity Female 02/17/2021 9:58 AM CDT Sexual Orientation Straight 02/17/2021 9: 58 AM CDT documented as of this encounter Plan of Treatment Not on file documented as of this encounter Procedures Procedure Name Priority Date/Time Associated Diagnosis Comments SCAN - LABS 07/29/2018 documented in this encounter Results * SCAN - LABS (07/29/2018) us Provider Scanning Final Result documented in this encounter Visit Diagnoses Not on filedocumented in this encounter Additional Health Concerns Infection Onset Date Last Indicated 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 Sara Brown RN generated from [facility] 04/13/2014 04/13/2014 04/10/2021 3:32 PM C DT documented as of this encounter Care Teams Telecommunications Equipment Installer Relationship Specialty Start Date End Date Clint Rodriguez MD [address] [address] PCP - General 10/19/16 10/18/19 Jori Espinoza MD [address] [facility] [place] [address] PCP - General Internal Medicine 10/19/19 Lucio Gonzales MD [address] [address] Cone Baker Machine Cardiology 04/28/19 Darleen Bailey MD [address] [facility] [address] Radiation Oncologist Radiation Oncology 05/16/21 Cuong Figueroa DO [address] [place] [address] Medical Oncologist/Bradley Linebacker Crewmember Hematology and Oncology 05/16/21 08/26/23 Vicki Forman MD PhD [address] [place] [address] Surgeon Surgical Oncology 05/16/21 Erin Markham MD [address] [address] Vacuum Worker Obstetrics and Gynecology 05/16/21 Siria Enriquez NP [address] [place] [address] Nurse Practitioner Medical Oncology 08/27/23 Darleen Bailey MD [address] [place] [address] Radiation Oncologist Radiation Oncology 03/18/24 Mirza Ryan MD [address] [address] Consulting Physician Nephrology 09/01/24 documented as of this encounter
--- OUTSIDE RECORDS SUMMARY | 2024-11-13 13:57 | XMS_ITS ---
Author Organization [facility] al Address [address] [place] [address] Care Team Providers Care Senior Programmer Name Role Phone Lucio Gonzales MD Unavailable [phone] Jori Espinoza MD Primary Care Provider + Aft, Vicki Sam MD PhD Unavailable [phone] Erin Markham MD Unavailable [phone] Siria Enriquez AUTO PARTS SALESPERSON Unavailable + [phone] Darleen Bailey MD Unavailable [phone] Mirza Ryan MD Unavailable [phone] Active Problems Problem Noted Date Diagnosed Date Multiple sclerosis 09/03/2023 Chronic renal disease, stage IV 09/03/2023 Secondary hyperparathyroidism 09/03/2023 Stage 3b chronic kidney disease 09/03/2023 Age-related osteoporosis wit hout current pathological fracture 02/21/2023 Personal history of radiation therapy 01/11/2022 Encounter for person encountering health service s 05/19/2021 Malignant neoplasm of upper- outer quadrant of right breast in female, estrogen receptor positive 03/08/2021 Cancer Staging:Pathologic stage from 04/11/2021:Stage IA(pT1c, pN0(sn), cM0, G3, ER+, TX+, HER2+) - Signed by Darleen Bailey MD on 05/16/2021 Left ovarian cyst 01/12/2021 YARY (obstructive sleep apnea) 04/28/2019 Daytime sleepiness 04/28/2019 Nonrheumatic aortic valve stenosis 04/20/2019 Senile osteoporosis 10/21/2018 Closed fracture of lower end of left radius with routine healing 01/07/2018 Narcolepsy 05/19/2013 Overview (07/10/2022): Presumed Narcolepsy Hypertension 05/19/2013 Overview (10/26/2016): Hypertension 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 Other Current Plans denosumab (PROLIA) Injection* Plan Start Date:07/24/2023 Plan Provider:Transcribed Order, Provider Linked Problems Age-related osteoporosis wit hout current pathological fracture Treatment Medications No medications scheduled. Past Treatment and Therapy Plans Oncology Chemotherapy Treatment Plan Name Start Date Discontinue Date Treatment Medications Discontinue Reason Plan Provider Cycles PACLItaxel / Trastuzumab Weekly x 4 Cycles then Trastuzumab Q21 Days - Breast 05/31/20 21 08/06/2022 PACLItaxel (TAXOL) IVPB in 250 mLtrastuzumab- cherelles (KANJINTI)tras tuzumab-cherelles (KANJINTI) IVPB Therapy Complete Cuong Figueroa DO 17 of 17 cycles completed Specialty Infusion Treatment 2 Plan Name Start Date Discontinue Date Treatment Medications Discontinue Reason Plan Provider denosumab (PROLIA) Injection 02/28/2023 02/26/2023 No medications scheduled. Financial Cuong Figueroa DO denosumab (PROLIA) Injection 02/28/2023 02/22/2023 No medications scheduled. Financial Cuong Figueroa DO Radiation Treatments * Course C1 R BREAST 202111/07/2021 - 12/04/2021 Treatment Period Energy Fraction Dose Fractions Total Dose Plans Planned R BRST BOOST 11/28/2021 - 12/04/2021 250 5 / 1,250 Prone RBRST 11/07/2021 - 11/27/2021 267 15 / 4,005 Reference Points Delivered DPV_BOOST 11/28/2021 - 12/04/2021 1,250 LING DPV 11/07/2021 - 11/27/2021 4,005 Lifetime Dose Tracking * Chemical Lifetime Dose Automatic Entry Manual Entr y Fluoro Time 1.6 minutes 1.6 minutes 0 minutes Air kerma at the reference point (Ka,r) 12 mGy 1 2 mGy 0 mGy Treatment Summaries Malignant neoplasm of upper-outer quadrant of right breast in female, estrogen receptor positive (HCC)* Images from the original note were not included. [address], [address] [place] [address] This Survivorship Care Plan is a cancer treatment summary and follow-up plan and is provided to youto keep with your health care records and to share with your primary care provider or any of your doctors and nurses. This summary is a brief record of major aspects of your cancer treatment not a detailed or comprehensive record of your care. You should review this with your cancer provider. Treatment Summary and Survivorship Care Plan for Breast Cancer General Information Patient name Stacy Crocker (home) Date of 1945 Health Care Providers (Including Names, Institutions) Provider Name: Contact Information: Primary Care Physician Jori Espinoza MD [phone] Surgeon Vicki Forman MD [phone] Radiation Oncologist Darleen Bailey MD [phone] Medical Oncologist Cuong Fgiueroa DO [phone] Plastic Surgeon Vicki Forman MD [phone] Treatment Summary Cancer Diagnosis Information Diagnosis Malignant neoplasm of upper-outer quadrant of right breast in female, estrogen receptor positive (CMS/HCC) (HCC) Diagnosis date 02/20/2021 Staging information Cancer Staging Malignant neoplasm of upper-outer quadrant of right breast in female, estrogen receptor positive (CMS/HCC) (HCC) Staging form: Breast, AJCC 8th Edition - Pathologic stage from 04/11/2021: Stage IA (pT1c, pN0(sn), cM0, G3, ER+, TX+, HER2+) - Signed by Darleen Bailey MD on 05/16/2021 Estrogen: Positive Progesterone: Positive HER2: Positive Treatment Completed Surgery Surgery date 02/20/2021 Surgical procedure / location / findings BREAST BIOPSY Surgery date 04/11/2021 Surgical procedure / location / findings (R), LUMPECTOMY (R), BIOPSY SENTINEL LYMPH NODE WITH LYMPHOSCINTIGRAPHY (R) Radiation Radiation Treatments Active No active radiation treatments to show. Historical Plans Prone RBRST Most recent treatment: Dose planned: 267 cGy (fraction 15 on 11/27/2021) Total: Dose planned: 4,005 cGy Elapsed Days: 20 R BRST BOOST Most recent treatment: Dose planned: 250 cGy (fraction 5 on 12/04/2021) Total: Dose planned: 1,250 cGy Elapsed Days: 27 Reference Points DPV_BOOST Most recent treatment: Dose given: 250 cGy (on 12/04/2021) Total: Dose given: 1,250 cGy Elapsed Days: 27 LING DPV Most recent treatment: Dose given: 267 cGy (on 11/27/2021) Total: Dose given: 4,005 cGy Elapsed Days: 20 Systemic Therapy (chemotherapy, hormonal therapy, other) ZOLEDRONIC ACID (RECLAST) INFUSION Treatment goal [No plan goal] Status Active Start Date 11/11/2018 End Date Until discontinued Provider Provider Transcribed Order Chemotherapy zoledronic acid 5 mg in sodium chloride 0.9% 100 mL IVPB, 5 mg, intravenous, Once, 1 of 1 cycle Administration: 5 mg (11/11/2018) PACLItaxel / Trastuzumab Weekly x 4 Cycles then Trastuzumab Q21 Days - Breast Treatment goal [No plan goal] Status Inactive Start Date 05/31/2021 End Date 05/10/2022 Provider Cuong Figueroa, Chemotherapy PACLitaxeL (TAXOL) 132 mg in sodium chloride 0.9% (PVC-FREE) 250 mL IVPB, 80 mg/m2 = 132 mg, intravenous, Once, 4 of 4 cycles Administration: 132 mg (05/31/2021), 132 mg (06/14/2021), 132 mg (06/07/2021), 132 mg (06/28/2021), 132 mg (07/05/2021), 132 mg (07/26/2021), 132 mg (08/03/2021), 132 mg (08/09/2021), 132 mg (08/16/2021) trastuzumab-anns (KANJINTI) 262.5 mg in sodium chloride 0.9% 250 mL IVPB, 4 mg/kg = 262.5 mg, intravenous, Once, 17 of 17 cycles Administration: 262.5 mg (05/31/2021), 130.2 mg (06/07/2021), 130.2 mg (06/14/2021), 130.2 mg (06/21/2021), 130.2 mg (07/19/2021), 130.2 mg (07/12/2021), 388.5 mg (08/30/2021), 399 mg (09/20/2021), 130.2 mg (06/28/2021), 130.2 mg (07/05/2021), 130.2 mg (07/26/2021), 130.2 mg (08/03/2021), 130.2 mg (08/09/2021), 130.2 mg (08/16/2021), 388.5 mg (10/11/2021), 388.5 mg (11/02/2021), 388.5 mg (11/23/2021), 388.5 mg (12/14/2021), 388.5 mg (01/04/2022), 388.5 mg (01/25/2022), 399 mg (02/15/2022), 399 mg (03/08/2022), 399 mg (2022), 409.5 mg (04/19/2022), 409.5 mg (05/10/2022) Lifetime Dose Tracking Lifetime Dose Tracking No doses have been documented on this patient for the following tracked chemicals: doxorubicin, epirubicin, idarubicin, daunorubicin, mitoxantrone, bleomycin, mitomycin, cyclophosphamide, carmustine,cisplatin, ifosfamide, carboplatin, fluorouracil, etoposide, doxorubicin HCl pegylated liposomal, et oposide phosphate, valrubicin, doxorubicin isotoxic equivalent Research Studies MS REYNOSO Status On treatment Start Date 09/30/18 MS REYNOSO ad hoc CDA queue Status On study Start Date 11/15/20 Persistent symptoms or side effects that have continued after finishing treatment: fatigue, numbness, cardiac dysfunction Family History Cancer Cancer-related family history is not on file. Genetic Testing No Tell your provider if there is a history of cancer in your family, if another member of your familywas diagnosed with cancer since your last visit. The following risk factors may indicate that breast cancer could run in the family: Jainism heritage History of ovarian cancer in the patient or any 1st or 2nd degree relative Any 1st degree relative with breast cancer before the age of 50 Two or more 1st or 2nd degree relative diagnosed with breast cancer at any age Patient or relative diagnosed with bilateral breast cancer History of breast cancer in a male relative Treatment Ongoing Additional Treatment Start Date Planned Duration Possible Side Effects Aromatase Inhibitors (anastrozole, exemestane and letrozole) 03/08/2022 5 years Hot flashes, joint/muscle aches, vaginal dryness and bone loss (common); hair thinning (rare) Other rare side effects may occur. Herceptin 05/31/2021 1 year Rarely shortness of breath, new swelling in legs (if these occur pleasenotify your medical oncologist). Calcium + Vitamin D 19-50 years age and males age 51-70 years: recommend 1,000 mg/day calcium & 600 IU/day vitamin D Females age 51-70 1200 mg/day calcium and 600 IU/day vitamin D Over 70 years age take 1200 mg/day calcium and 800 IU/day of vitamin D 2000 international units daily lifelong An irregular heartbeat; nausea, constipation; weakness, drowsiness, headache; dry mouth,or a metallic taste in your mouth; or muscle or bone pain. Follow-up Care Plan Your follow-up care plan is design to inform you and primary care providers regarding the recommended and required follow-up, cancer screening and routine health maintenance that is needed to maintain optimal health. Coordinating Provider When/How often Cuong Figueroa DO Every 3-6 MONTHS for year 1 to 3 Cuong Figueroa DO Every 6-12 MONTHS for year 4 to 5 Darleen Bailey MD Indicated by provider AftVicki MD Yearly Jori Espinoza After 5 years, annual follow up Cancer Surveillance or other Recommended Tests Coordinating Provider Test How Often Cuong Figueroa DO - Year 1-5, Jori Espinoza MD - After year 5 Mammogram for remaining breast(s) Yearly Cuong Figueroa DO Cardiac monitoring Every 3 months while on Herceptin ROLLER DIE CUTTING MACHINE OPERATOR: Erin Markham MD Pap/pelvic exam (woman only) As indicated by provider Medical Oncologist: Cuong Figueroa DO, PCP: Jori Espinoza Bone Density Every 2 years ifon an aromatase inhibitor or as indicated by your provider CT/PET and tumor markers. Not recommended in the absence of signs or symptoms of cancer recurrence Possible late- and long-term effects that someone with this type of cancer and treatment may experience: Peripheral Neuropathy This may feel like numbness, tingling or painful sensations that develop in your hands and feet. Neuropathy can occur during or shortly after treatment. Sometimes it goes away. For some patients the symptoms can be chronic. Talk to your provider about your symptoms. Some medications may lessen the symptoms. Other approaches include acupuncture, physical therapy and exercise. Cardiovascular disease Some patients may be at risk of developing heart disease due to previous chemotherapy or local effects of radiation to the left chest. Congestive heart failure may develop in a small number of patients. Contact your provider is you have the following symptoms: Shortness of breath Difficulty breathing Fast or irregular heartbeat New or increased cough Swelling of the feet or lower legs A heart healthy lifestyle that includes diet and physical activity are proven to be helpful. Fatigue Many patients experience some level of fatigue. Some patients experience severe and ongoing fatigue. An active lifestyle with healthy sleep patterns can improve your energy levels. Talk to your provider about ongoing (more than 3 months) fatigue. Osteoporosis Patients on hormone therapies and who experience early menopause are at a higher risk of developingfractures, osteopenia (lower than normal bone density) and osteoporosis (loss of bone density). Weight bearing exercise, adequate intake calcium and vitamin D are helpful. Bone density scans are usedto evaluate bone health. Movement or strength changes Some patients experience loss of strength or difficulty with mobility or range of motion after surgery or their cancer treatments. Talk with your provider if you can no longer move the way you did before your cancer treatment or if you feel weak or unsteady or you have fallen. Physical therapy or rehabilitation may be helpful. Weight management and Nutrition Some patients find it difficult to maintain good nutrition during or after treatment. This can leadto weight loss or weight gain. Aim for a normal body mass index (BMI) of 18.5-24.9, talk to your provider about your BMI. Being overweight may increase your risk of cancer recurrence and other diseases. Eat a healthy diet, focus on lean meats and proteins, more fruits, vegetables and whole grains and low in sugars and fats. Limit red meat and avoid processed meat. Work to maintain healthy weight behaviors that include diet and physical activity. Menopause or Sexual changes or symptoms of estrogen deprivation (hot flashes, sweats, vaginal discharge or dryness, painful intercourse). The desire to engage in sexual activity may lessen due to low energy, decreased sexual function and/or changes in appearance. Symptoms of menopause may cause vaginal changes and/or dryness. Your riskdepends on your age and the kind of treatment you received. Cancer diagnosis and treatment may cause existing sexual problems to be worse. Evaluation of sexual function and professional counseling may be helpful. The use of mqob-mjd-ntugtst lubricants may lessen painful intercourse. Talk with your provider about sexual changes and symptoms of menopause. Promising non-hormone treatments that may include antidepressants (drugs that treat depression), dietary changes, acupuncture and exercise may h elp lessen symptoms. Psychosocial Distress (Emotional stress, worry or depression). Many patients experience distress, anxiety or depression at some point. This can include worry, difficulty sleeping or sadness and often lessens over time. Discuss this with your provider; a referralto a therapist may be helpful. Physical activity has been shown to relieve stress. Some patients may benefit from the use of medication. It is important to remember that these symptoms can be due to other causes like diabetes or with normal aging. If these or any other new symptoms occur bring these to attention of your health care provider. These symptoms should be brought to the attention of your provider: Anything that represents a brand new symptom; Anything that represents a persistent symptom; Anything you are worried about that might be related to the cancer coming back. Please continue to see your primary care provider for all general health care recommended for a patient your age such as routine immunizations, and routine non-breast cancer screening like colonoscopy or bone density exams. Consult with your health care provider about prevention and screening for bone loss using bone density tests. Cancer survivors may experience issues with the areas listed below. If you have any concerns in these or other areas, please speak with your doctors or nurses to find out how you can get help with them. Anxiety and depression Emotional and mental health Fatigue Fertility Financial advice or assistance Insurance Memory or concentration loss Parenting Physical functioning School/work Sexual functioning Stopping smoking Weight changes Other A number of lifestyle/behaviors can affect your ongoing health, including the risk for the cancer coming back or developing another cancer. Discuss these recommendations with your doctor or nurse: Eat a healthy diet: focus on lean meats and proteins, more fruits, vegetables and whole grains and low in sugars and fats. Limit red meat and avoid processed meat. Maintain a healthy weight; avoid being overweight. Aim for a normal body mass index (BMI) of 18.5-24.9. Help learning to eat healthier, call the human resources trainer at: [facility] Have an active lifestyle, strive for 30 minutes of moderate exercise 5 times a week and strength orresistance training at least twice a week. Use broad-spectrum (UVA+UVB) sunscreen with SPF 30 or greater, is water resistant, limit time spentin the sun (10 am-4 pm), wear hat, wear UV protective clothing, wear sunglasses. Never use a tanning bed. Skin that was irradiated may be more sensitive over your lifetime. Do not smoke or chew tobacco; participate in a smoking cessation program. Limit alcohol intake, 1 drink per day for a woman and 2 drinks per day for a man. Resources you may be interested in: [facility] A National Cancer [place] [facility] http://www.[facility]/ [facility] 1st floor of [place] [facility] [phone]. Computer access, educational material, counseling services (FREE) Cancer Resources: www.cancer.net [place] Disabilities Act: The U.S. Department of Justice provides information about the Americans with Disabilities Act (ADA). Toll free number http://www.ada.gov/ Occupational Therapy at [facility]. Improve memory and thinking following chemotherapy. Improve your performance at home, work and in the community. or Toll free www.ot.[facility]/patients Managing your weight after a cancer diagnosis: http://www.cancer.net/sites/cancer.net/files/weight_after_cancer_diagnosis.pdf National Coalition for Cancer Survivorship: http://www.canceradvocacy.org/ [place] Cancer Society Cancer Survivors Network: http://csn.cancer.org/ [employer] Cancer: https://survivorship.cancer.gov/ an online tool for cancer survivors andcaregivers created by the [place] Cancer Society and the National Cancer [place]. It provides: Information on dealing with side effects from cancer and treatment Caregivers with support and resources Practical advice about talking to friends and family about cancer Questions to ask their health care team Help understanding their rights in the workplace
--- OUTSIDE RECORDS SUMMARY | 2024-11-13 13:57 | XMS_ITS | Encounter Summary ---
Author Organization [facility] Healthcare Address [address] [place] [address] Care Team Providers Care Warehouse Shipping Associate Name Role Phone Lucio Gonzales MD Unavailable [phone] Jori Espinoza MD Primary Care Provider + Darleen Bailey MD Unavailable Cuong Figueroa DO Unavailable [phone] Aft, Vicki Sam MD PhD Unavailable [phone] Erin Markham MD Unavailable [phone] Siria Enriquez POTATO GRADER Unavailable Darleen Bailey MD Unavailable Mirza Ryan MD Unavailable [phone] Encounter Details Date Type Department Care Team (Late st Contact Info) Description 10/21/2020 Telephone [facility] Radiology [address] [place], [place] [id number] Javier Avery MD [address] [place], [place] [id number] Social History Tobacco Use Types Packs/Day Years [...] and Family Not on file 06/05/2019 Attends [employer] Not on file 06/05 Active Member of Clubs or Organizations Not on f ile 06/05/2019 Attends Club or Organization Meetings Not on vamshi e 06/05/2019 Marital Status 06/05/2019 Comments No Sex and Gender Information Value Date Recorded Sex Assigned at Not on file Legal Sex Female 1:50 AM MOLD STRIPPER Gender Identity Female 02/17/2021 9:58 AM CDT [...] Flag removed. Sara Brown RN generated from [facility] 04/13/2014 04/13/2014 04/10/2021 3:32 PM C DT documented as of this encounter Care Teams Warehouse Shipping Associate Relationship Specialty Start Date End Date Jori Espinoza MD [facility] [place] [address] PCP - General Internal Medicine 10/19/19 Lucio Gonzales MD Commercial Sewing Instructor Cardiology 04/28/19 Darleen Bailey MD [address] [place] [address] [place] [address] Radiation Oncologist Radiation Oncology 05/16/21 Cuong Figueroa DO [address] [address] Medical Oncologist/Agricultural Research Director Hematology and Oncology 05/16/21 08/26/23 Aft, Vicki Sam MD PhD [address] [place] [address] Surgeon Surgical Oncology 05/16/21 Erin Markham MD [address] [address] High Speed Printer Operator Obstetrics and Gynecology 05/16/21 Siria Enriquez, FIONA [facility] [address] [facility] [address] [place], [place] [address] Nurse Practitioner Medical Oncology 08/27/23 Darleen Bailey MD [address] [place] [address] Radiation Oncologist Radiation Oncology 03/18/24 Mirza Ryan MD [address] [facility] [address] [address] Consulting Physician Nephrology 09/01/24 documented as of this encounter
--- OUTSIDE RECORDS SUMMARY | 2024-11-13 13:58 | XMS_ITS | Encounter Summary ---
Author Organization [employer] Address [address] [place] [address] Care Team Providers Care Catering And Events Manager Name Role Phone Thomas Akbar MD Primary Care Provider [phone] Encounter Details Date Type Department Care Team (Late st Contact Info) Description 01/27/1999 Outpatient Historical [facility] Social History Tobacco Use Types Packs/Day Years Used Date Smoking Tobacco: Never Assessed Comments Unknown Sex and Gender Information Value Date Recorded Sex Assigned at Not on file Legal Sex Female 4:40 AM RECOVERY ENGINEER Gender Identity Not on file Sexual Orientation Not on file documented as of this encounter Plan of Treatment Not on file documented as of this encounter Visit Diagnoses Not on filedocumented in this encounter Care Teams Catering And Events Manager Relationship Specialty Start Date End Date Thomas Akbar MD [address] [facility] [address] [place] [address] PCP - General 07/12/15 documented as of this encounter
--- OUTSIDE RECORDS SUMMARY | 2024-11-13 13:58 | XMS_ITS | Encounter Summary ---
Author Organization [facility] Address [address] [place] [address] Phone Care Team Providers Care Ship Runner Name Role Phone Lucio Gonzales MD Unavailable Jori Espinoza MD Primary Care Provider + Darleen Bailey MD Unavailable [phone] Cuong Figueroa DO Unavailable [phone] Aft, Vicki Sam MD PhD Unavailable [phone] Erin Markham MD Unavailable [phone] ROLLER ENGINEER Unavailable + [phone] Darleen Bailey MD Unavailable [phone] Mirza Ryan MD Unavailable [phone] Encounter Details Date Type Department Care Team (Latest Contact Info) Description 01/07/2020 Orders Only [place] [facility] Scanning, Provider [...] and Family Not on file 06/05/2019 Attends Gnosticist Services Not on file 06/05 Active Member of Clubs or Organizations Not on f ile 06/05/2019 Attends Club or Organization Meetings Not on vamshi e 06/05/2019 Marital Status 06/05/2019 Comments No Sex and Gender Information Value Date Recorded Sex Assigned at Not on file Legal 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 Female 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 Gender Identity Female 02/17/2021 9:58 AM CDT Sexual Orientation Straight 02/17/2021 9: 58 AM CDT documented as of this encounter Plan of Treatment Not on file documented as of this encounter Procedures Procedure Name Priority Date/Time Associated Diagnosis Comments SCAN - LABS 01/07/2020 documented in this encounter Results * SCAN - LABS (01/07/2020) us Provider Scanning Final Result documented in this encounter Visit Diagnoses Not on filedocumented in this encounter Additional Health Concerns Infection Onset Date Last Indicated 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 Sara Brown RN generated from 7 04/13/2014 04/13/2014 04/10/2021 3:32 PM C DT documented as of this encounter Care Teams Ship Runner Relationship Specialty Start Date End Date Jori Espinoza MD [address] [address] PCP - General Internal Medicine 10/19/19 Lucio Gonzales MD Repulping Supervisor Cardiology 04/28/19 Darleen Bailey MD [address] [place] [address] Radiation Oncologist Radiation Oncology 05/16/21 Cuong Figueroa DO [address] [place] [id number] Medical Oncologist/Clinical Operations Manager Hematology and Oncology 05/16/21 08/26/23 AftVicki MD PhD [address] [place] [address] [phone] Surgeon Surgical Oncology 05/16/21 Erin Markham MD [address] [address] Arbitrator Obstetrics and Gynecology 05/16/21 Siria Enriquez NP [address] [place] [id number] Nurse Practitioner Medical Oncology 08/27/23 Darleen Bailey MD [address] [place] [id number] Radiation Oncologist Radiation Oncology 03/18/24 Mirza Ryan MD [address] [address] Consulting Physician Nephrology 09/01/24 documented as of this encounter
--- OUTSIDE RECORDS SUMMARY | 2024-11-13 13:58 | XMS_ITS | Encounter Summary ---
Author Organization [email or web address] Address 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
--- OUTSIDE RECORDS SUMMARY | 2024-11-13 13:58 | XMS_ITS | Clinical Summary ---
Author Organization [facility] Address [address] [place] [address] Care Team Providers Care Cnc Service Technician Name Role Phone Lucio Gonzales MD Unavailable Jori Espinoza MD Primary Care Provider + Aft, Vicki Sam MD PhD Unavailable [phone] Erin Markham MD Unavailable [phone] Siria Enriquez SOLUTION SALES SENIOR EXECUTIVE Unavailable + [phone] Darleen Bailey MD Unavailable [phone] Mirza Ryan MD Unavailable [phone] Allergies Active Allergy Reactions Criticality Noted Date Comments Clindamycin Other (See comments) Low 04/28/2019 other Iodine Anaphylaxis,Swelling High 02/16/2013 Cephalexin Swelling Medium 02/21/2023 Nitrofurantoin Monohyd/M-Cryst Swelling Medium 04/28 Medications amLODIPine (NORVASC) 2.5 mg tablet Take 1 tablet (2.5 mg total) by mouth daily Active cholecalcifero l, vitamin D3, (VITAMIN D3 ORAL) 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 Active exemestane (AROMASIN) 25 mg tabletIndicati ons:advanced breast cancer progress post-antiestro gen tx Take 1 tablet (25 mg total) by mouth daily 90 tablet 3 09/01/19 25 Active metoprolol XL (TOPROL-XL) 50 mg extended release tablet TAKE 1 & 1/2 (ONE & ONE-HALF) TABLETS BY MOUTH ONCE DAILY 135 tablet 3 10/29/19 25 Active lisinopril-hyd roCHLOROthiazi de (ZESTORETIC) 20-12.5 mg per tabletIndicati ons:hypertensi on Take 1 tablet by mouth every morning 09/17/19 20 025 Discontinued(Th erapy completed) metoprolol XL (TOPROL-XL) 50 mg extended release tablet TAKE 1 & 1/2 (ONE & ONE-HALF) TABLETS BY MOUTH ONCE DAILY 135 tablet 07/27/19 25 025 Discontinued Active Problems Problem Noted Date Diagnosed Date [...] from 04/11/2021:Stage IA(pT1c, pN0(sn), cM0, G3, ER+, OK+, HER2+) - Signed by Darleen Bailey MD on 05/16/2021 Left ovarian cyst 01/12/2021 YARY (obstructive sleep apnea) 04/28/2019 Daytime sleepiness 04/28/2019 Nonrheumatic aortic valve stenosis 04/20/2019 Senile osteoporosis 10/21/2018 Closed fracture of lower end of left radius with routine healing 01/07/2018 Narcolepsy 05/19/2013 Overview (07/10/2022): Presumed Narcolepsy Hypertension 05/19/2013 Overview (10/26/2016): Hypertension Hypertrophic cardiomyopathy 12/08/2012 Encounters Date Type Department Care Team Description 11/06/2024 10:51 AM CDT - 11/06/2024 11:59 PM CDT Hospital Encounter [address] [address] Age-related osteoporosis without current pathological fracture (Primary Dx) Discharge Disposition: Discharge to home or self care 11/04/2024 11:15 AM CDT Office Visit [facility] at [address] [place] [phone] Mirza Ryan MD Stage 3b chronic kidney disease (HCC) (Primary Dx); Benign hypertensive kidney disease with chronic kidney disease stage I through stage IV, or unspecified(403.10); Anemia in stage 3b chronic kidney disease (HCC); Secondary hyperparathyroidism 11/02/2024 Telephone [facility] [address] [facility] 8th [place] [address] [place] [address] Lucio Gonzales MD 10/29/2024 Results Follow-Up [facility] at [address] [place] [address] Mirza Ryan MD Stage 3b chronic kidney disease (HCC) (Primary Dx) 10/21/2024 Orders Only [address] [address] Fadia Hernandez, RN 10/20/2024 Orders Only [address] [address] Fadia Hernandez, RN 10/19/2024 Orders Only [facility] [address] [place] [address] [place] [phone] Siria Enriquez NP 10/19/2024 Orders Only [facility] [address] [place] [phone] Roxanne Diallo, GABRIELE 10/19/2024 Orders Only [facility] [address] [place] [address] [place] [phone] Roxanne Diallo, GABRIELE 10/19/2024 Orders Only [address] [address] Fadia Hernandez, RN 10/16/2024 Orders Only [facility] [address] [place] [address] Sarai Bustos RN 09/01/2024 1:00 PM CPAS Office Visit [facility] [address] [place] [address] [address] [place] [phone] Siria Enriquez NP Age-related osteoporosis without current pathological fracture (Primary Dx); Malignant neoplasm of upper-outer quadrant of right breast in female, estrogen receptor positive (HCC); Malignant neoplasm of upper-outer quadrant of left breast in female, estrogen receptor positive (HCC); Vitamin D deficiency 09/01/2024 12:30 PM CPAS Lab [facility] at [address] [address] Malignant neoplasm of upper-outer quadrant of right breast in female, estrogen receptor positive (HCC); Age-related osteoporosis without current pathological fracture 09/01/2024 11:30 AM CPAS Office Visit [facility] Building 2 Radiation Oncology [address] [place] [address] Jesustia Chaidez PA Malignant neoplasm of upper-outer quadrant of right breast in female, estrogen receptor positive (HCC) (Primary Dx); Personal history of radiation therapy 09/01/2024 Orders Only [facility] [address] [place] [address] [address] [place] [phone] Siria Enriquez NP 08/27/2024 Orders Only [facility] [address] [place] [address] [address] [place] [phone] oRxanne Diallo RN from Last 3 Months Immunizations Immunization Administration Dates Next Due Pfizer SARS-CoV-2 Monovalent Vaccination (12+ Yrs) PURPLE 10/09/2020,09/17/2020 Surgical History Surgery Date Site/Laterality Comments KNEE ARTHROPLASTY 07/22/2005 - 07/21/2006 Right knee replacement VAGINAL DELIVERY 07/22/1966 - 07/21/1967 x2 REPLACEMENT TOTAL KNEE 2013 Left L knee replacement revision WRIST FRACTURE SURGERY age 70 Left l radius fracture BREAST BIOPSY 02/22/2021 Right BREAST LUMPECTOMY 03/22/2021 - 04/20/[address] [facility] APPENDECTOMY age 50 Appendicitis: Appendectomy HERNIA REPAIR age 56 hernia: surgery BUNIONECTOMY BREAST LUMPECTOMY PORT PLACEMENT CHEST >5 YEARS 05/29/2021 N/A FRACTURE SURGERY JOINT REPLACEMENT Medical History Medical History Date Comments Hernia of abdominal cavity 1990 herni a Cellulitis 2012 R leg cellulitis 1966 x2 Delayed emergence from general anesthesia Sleep apnea Hypertension GERD (gastroesophageal reflux disease) Hypothyroidism Breast cancer (HCC) MS (multiple sclerosis) (HCC) Iron deficiency anemia Aortic stenosis Malignant neoplasm of upper- outer quadrant of right breast in female, estrogen receptor positive (HCC) 03/08/2021 Menopause ovarian failure Osteoporosis Cataract Autoimmune disease Chronic renal disease, stage IV (HCC) 09/03/2023 Heart murmur Pneumonia Family History Medical History Relation Name Comments Arrhythmia Brother 1 Shaq Keita Family history of cardiac pacemaker - (Added by TW Conv) Heart attack Brother 1 Shaq Keita Early Brother 2 Chandu Keita Arthritis Father Edgar Keita COPD Father Edgar Keita COPD; Coronary artery disease Father Edgar Keita Angie nary artery disease; Emphysema Father Edgar Keita Arthritis Mother Carmen Ketia COPD Mother Carmen Keita COPD; Coronary artery disease Mother Carmen Keita Angie nary artery disease; Diabetes Mother Carmen Keita Emphysema Mother Carmen Keita Stroke Mother Carmen Keita Polymyositis Sister 1 Obesity Sister 2 Maricel Polk Relation Name Status Comments Brother 1 Shaq Keita Brother 2 Chandu Keita Father Edgar Keita Mother Carmen Keita Sister 1 Sister 2 Maricel Polk Social History Tobacco Use Types Packs/Day Years Used Date Smoking Tobacco: Never Smokeless Tobacco: Never Tobacco Cessation:Counseling Given: Not Answered Alcohol Use Standard Drinks/Week Comments No 0 [...] and Family Not on file 06/05/2019 Attends Sabianist Services Not on file 06/05 Active Member of Clubs or Organizations Not on f ile 06/05/2019 Attends Club or Organization Meetings Not on vamshi e 06/05/2019 Marital Status 06/05/2019 AUDIT-C Answer Date Recorded Q1: How often do you have a drink containing alcohol? Never 11/04/2024 Q2: How many drinks containi ng alcohol do you have on a typical day when you are drinking? Patient does not drink Q3: How often do you have si x or more drinks on one occasion? Never 11/04/2024 Personal Safety Answer Date Recorded Have you ever been in or are you currently in a harmful physical or emotional relationship or is someone making you feel afraid or unsafe? 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 Not on file Not on file Not on file Obstetrics History Para Term AB IAB SAB Ectopic Multiple Livin g Live Births 0 0 0 0 0 0 0 0 0 0 0 Last Filed Vital Signs Vital Sign Reading Time Taken Comments Blood Pressure 127/67 11/06/2024 11:00 AM CDT Pulse 63 11/06/2024 11:00 AM CDT Temperature 36.8 C (98.3 F) 11/06/2024 11:00 AM CDT Respiratory Rate 16 11/06/2024 11:00 AM CDT Oxygen Saturation 98% 11/06/2024 11:00 AM CDT Inhaled Oxygen Concentration - - Weight 67.6 kg (149 lb) 11/04/2024 11:26 AM CDT Height 152.4 cm (5') 11/04/2024 11:26 AM CDT Body Mass Index 29.1 11/04/2024 11:26 AM CDT Plan of Treatment Health Maintenance Due Date Last Done Comments Depression Screening 1945 Hepatitis C Screening 1945 DTaP/Tdap/Td Vaccine (1 - Tdap) 1956 Hepatitis B Screening 1963 Pneumococcal vaccine 65+ (1 of 2 - PCV) 1964 Zoster Vaccine (1 of 2) 1964 Covid-19 Vaccine (3 - Pfizer risk series) 11/06/2020 10/09/2020, 09/17/2020 Fall Risk Assessment 04/11/2022 04/11/2021 Well Visit 65+ 03/13/2023 03/13/2022, 12/20, 06/05/2019, Additional history exists Osteoporosis Screening-Bone Density Scan 02/15/2025 02/15/2023, 01/15/2018 Influenza Vaccine (Season Ended) 2025 Breast Cancer Screening-Mammogram Discontinued 03/04/2024, 02/27/2023, 02/27/2022, Additional history exists Medical Devices Implanted Type Area Manager Policy Device Identifier Shelf Expiration Date Model / Serial / Lot Bilateral Total Knee Arthroplasty Bilateral: Knee Left Wrist Orif Wrist [employer] [id number] Xcela 8fr 1.6mm 1 Lumen Power Injectable Attach Catheter Fill - [id number] Implanted:Qty: 1 on 05/29/2021 at [facility] [employer] 01/30/2026 [id number] / / [id number] Explanted Type Area Manager Policy Device Identifier Shelf Expiration Date Model / Serial / Lot Bard Peripheral Vascular [id number] Ghiatas 20ga 15cm 5cm Beaded Needle Breast Wire Localization - [id number] Implanted:Qty: 1 on 04/11/2021 at [facility] Explanted:Qty: 1 on 04/11/2021 Right: Breast [employer] [id number] / / [employer] [id number] Ghiatas 20ga 15cm 5cm Beaded Needle Breast Wire Localization - [id number] Implanted:Qty: 1 on 04/11/2021 at [facility] Explanted:Qty: 1 on 04/11/2021 Right: Breast [employer] [id number] / / Procedures Procedure Name Priority Date/Time Associated Diagnosis Comments PTH Routine 10/28/2024 11:02 AM CDT Stage 3b chronic kidney disease (HCC) BASIC METABOLIC PANEL Routine 10/28/2024 11:02 AM CDT Stage 3b chronic kidney disease (HCC) EGFR Routine 09/01/2024 11:53 AM CPAS Malignant neoplasm of upper-outer quadrant of right breast in female, estrogen receptor positive (HCC) Age-related osteoporosis without current pathological fracture DIFFERENTIAL AUTO Routine 09/01/2024 11: 53 AM CPAS Malignant neoplasm of upper-outer quadrant of right breast in female, estrogen receptor positive (HCC) Age-related osteoporosis without current pathological fracture CBC WITH AUTO DIFFERENTIAL Routine 09/01/2024 11:53 AM CPAS Malignant neoplasm of upper-outer quadrant of right breast in female, estrogen receptor positive (HCC) Age-related osteoporosis without current pathological fracture COMPREHENSIVE METABOLIC PANEL Routine 09/01/2024 11:53 AM CPAS Malignant neoplasm of upper-outer quadrant of right breast in female, estrogen receptor positive (HCC) Age-related osteoporosis without current pathological fracture DIAGNOSTIC MAMMOGRAM BILATERAL W CK Schedule Routine, Read Routine (OP Routine) 03/04/2024 12:39 PM CDT History of breast cancer DEXA AXIAL SKELETON BONE DENSITY 1 OR MORE SITES Schedule Routine, Read Routine (OP Routine) 02/15/2023 1:25 PM CDT Senile osteoporosis from Last 3 Months or Most Recently Relevant to Health Maintenance Results * PTH (10/28/2024 11:02 AM CDT) Pathologist [facility] Parathyroid hormone, intact 72 16 - 77 pg/mL [facility] Comment: Interpretive Guide Intact PTH Calcium ------- Normal Parathyroid Normal Normal Hypoparathyroidism Low or Low Normal Low Hyperparathyroidism Primary Normal or High High Secondary High Normal or Low Tertiary High High Non-Parathyroid Hypercalcemia Low or Low Normal High Blood 10/28/2024 11:0 2 AM CDT 10/28/2024 11:03 AM CDT Mirza Ryan MD LAB BLOOD ORDERABLES Final Result [facility] [address] [place] [address] * (ABNORMAL) Basic metabolic panel (10/28/2024 11:02 AM CDT) Pathologist [facility] Glucose 85 65 - 99 mg/dL [facility] Comment: Fasting reference interval BUN 44(H) 7 - 25 mg/dL [facility] Creatinine 2.36(H) 0.60 - 1.00 mg/dL [facility] eGFR 20(L) > OR = 60 mL/min/1.7 3m2 [facility] BUN/creat ratio 19 6 - 22 (calc) [facility] Sodium 140 135 - 146 mmol/L [facility] Potassium, pl 4.3 3.5 - 5.3 mmol/L [facility] Chloride 101 98 - 110 mmol/L [facility] CO2 31 20 - 32 mmol/L [facility] Calcium 10.6(H) 8.6 - 10.4 mg/dL [facility] Blood 10/28/2024 11:0 2 AM CDT 10/28/2024 11:03 AM CDT Mirza Ryan MD LAB BLOOD ORDERABLES Final Result [facility] [address] [place] [address] * (ABNORMAL) eGFR (09/01/2024 11:53 AM CPAS) eGFR 28(L) >=60 mL/min/1. 73 m2 Comment: Interpretive Data Reference Interval Normal >/= 90 mL/min/1.73m2 Mildly decreased* 60 - 89 mL/min/1.73m2 Mildly to moderately decreased 45 - 59 mL/min/1.73m2 Moderately to severely decreased 30 - 44 mL/min/1.73m2 Severely decreased 15 - 29 mL/min/1.73m2 Kidney Failure < 15 mL/min/1.73m2 *Relative to young adult level Estimated glomerular filtration rate is determined by the 2020 CKD-EPI equation recommended by the National Kidney Foundation (A Unifying Approach to GFR Estimation: Recommendations of the NKF-ASK Task Force on Reassessing the Inclusion of Race in Diagnosing Kidney Disease, JASN 202). The CKD-EPI equation should not be used for patients with unstable renal function and has not been validated in children and those over 70. Current interpretive data was last reviewed 2021. Testing performed by: [facility], [address] [place] [address], [place]., [address] Blood 09/01/2024 11:5 3 AM CPAS 09/01/2024 11:54 AM CPAS us Siira Enriquez NP LAB BLOOD ORDERABLES Final Result [facility] [address] [facility] Department [place] [address] * Differential, auto (09/01/2024 11:53 AM CPAS) Neutrophil abs 4.1 1.5 - 6.5 K/cumm Comment:Testing performed by : [address] [address] Imm gran abs 0.0 0.0 - 0.1 K/cumm [facility] Comment:Testing performed by : [address] [address] Lymphocyte abs 1.3 0.8 - 3.3 K/cumm [facility] Comment:Testing performed by : [address] [address] Monocyte abs 0.6 0.2 - 0.8 K/cumm [facility] Comment:Testing performed by : [address] [address] Eosinophil abs 0.5 0.0 - 0.5 K/cumm [facility] Comment:Testing performed by : [address] [address] Basophil abs 0.1 0.0 - 0.1 K/cumm [facility] Comment:Testing performed by : [address] [address] Neutrophil pct 62.2 % [facility] Comment: Interpretive Data Percent cell count reference ranges are not reported, since discordance with absolute values may lead to misinterpretation of CBC data. Current Interpretive Data was last revised on 2017. Testing performed by: [address] [address] Imm gran pct 0.5 % [facility] Comment: Interpretive Data Percent cell count reference ranges are not reported, since discordance with absolute values may lead to misinterpretation of CBC data. Current Interpretive Data was last revised on 2017. Testing performed by: [address] [address] Lymphocyte pct 19.4 % [facility] Comment: Interpretive Data Percent cell count reference ranges are not reported, since discordance with absolute values may lead to misinterpretation of CBC data. Current Interpretive Data was last revised on 2017. Testing performed by: [address] [address] Monocyte pct 9.4 % [facility] Comment: Interpretive Data Percent cell count reference ranges are not reported, since discordance with absolute values may lead to misinterpretation of CBC data. Current Interpretive Data was last revised on 2017. Testing performed by: [address] [address] Eosinophil pct 7.1 % [facility] Comment: Interpretive Data Percent cell count reference ranges are not reported, since discordance with absolute values may lead to misinterpretation of CBC data. Current Interpretive Data was last revised on 2017. Testing performed by: [address] [address] Basophil pct 1.4 % [facility] Comment: Interpretive Data Percent cell count reference ranges are not reported, since discordance with absolute values may lead to misinterpretation of CBC data. Current Interpretive Data was last revised on 2017. Testing performed by: [address] [address] Blood 09/01/2024 11:5 3 AM CPAS 09/01/2024 11:54 AM CPAS Siria Enriquez SOLUTION SALES SENIOR EXECUTIVE LAB BLOOD ORDERABLES Final Result [facility] [address] [facility] Department [place] [address] * CBC with auto differential (09/01/2024 11:53 AM CPAS) [facility] WBC 6.5 3.8 - 9.9 K/cumm Comment:Testing performed by : [address] [address] Hgb 12.6 11.9 - 15.5 g/dL [facility] Comment:Testing performed by : [address] [address] Hct 37.3 35.6 - 45.5 % [facility] Comment:Testing performed by : [address] [address] Plt 191 150 - 400 K/cumm [facility] Comment:Testing performed by : [address] [address] MPV 9.2 9.1 - 12.3 fL [facility] Comment:Testing performed by : [address], [address] RBC 3.94 3.90 - 5.20 M/cumm [facility] Comment:Testing performed by : [address] [address] MCV 94.7 81.3 - 96.4 fL [facility] Comment:Testing performed by : [address] [address] MCH 32.0 27.1 - 33.3 pg [facility] Comment:Testing performed by : [address] [address] MCHC 33.8 32.3 - 35.7 g/dL [facility] Comment:Testing performed by : [address] [address] RDW CV 12.3 11.1 - 14.9 % [facility] Comment:Testing performed by : [address] [address] RDW SD 42.7 35.7 - 48.1 fL [facility] Comment:Testing performed by : [address] [address] NRBC abs 0.00 0.00 - 0.01 K/cumm [facility] Comment:Testing performed by : [address] [address] Blood 09/01/2024 11:5 3 AM CPAS 09/01/2024 11:54 AM CPAS Siria Enriquez NP LAB BLOOD ORDERABLES Final Result [facility] [address] [facility] Department [place] [address] * (ABNORMAL) Comprehensive metabolic panel (09/01/2024 11:53 AM CPAS) Sodium 135 135 - 145 mmol/L Comment:Testing performed by : [address] [address] Potassium, pl 4.6 3.3 - 4.9 mmol/L [facility] Comment:Testing performed by : [address] [address] Chloride 98 97 - 110 mmol/L [facility] Comment:Testing performed by : [address] [address] CO2 26 22 - 32 mmol/L [facility] Comment:Testing performed by : [address] [address] Anion gap 11 2 - 15 mmol/L [facility] Comment:Testing performed by : [address] [address] BUN 35(H) 6 - 25 mg/dL [facility] Comment:Testing performed by : [address] [address] Creatinine 1.80(H) 0.60 - 1.10 mg/dL [facility] Comment:Testing performed by : [address] [address] Glucose 90 70 - 199 mg/dL [facility] Comment: Interpretive Data Fasting glucose >/= 126 mg/dl is diagnostic for diabetes. Fasting is defined as no caloric intake for at least 8 hours. Fasting glucose between 100 mg/dl to 125 mg/dl is diagnostic of prediabetes. In a patient with classic symptoms of hyperglycemia or hyperglycemic crisis, a random glucose >/= 200 mg/dl is diagnostic for diabetes. In the absence of unequivocal hyperglycemia, results should be confirmed by repeat testing. The classification and Diagnosis of Diabetes Diabetes Care 2021; 46: S19-S40. Current interpretive data was last revised 2022. Testing performed by: [address] [address] Calcium 10.6(H) 8.5 - 10.3 mg/dL [facility] Comment:Testing performed by : [address] [address] Bilirubin, total 0.4 0.1 - 1.2 mg/dL [facility] Comment:Testing performed by : [address] [address] Protein, pl 7.3 6.5 - 8.5 g/dL [facility] Comment:Testing performed by : [address] [address] Albumin 4.3 3.5 - 5.0 g/dL [facility] Comment:Testing performed by : [address] [address] Alk phos 87 40 - 130 Units/L [facility] Comment:Testing performed by : [address] [address] ALT 17 7 - 45 Units/L [facility] Comment:Testing performed by : [address] [address] AST 23 10 - 45 Units/L [facility] Comment:Testing performed by : [address] [address] Blood 09/01/2024 11:5 3 AM CPAS 09/01/2024 11:54 AM CPAS Siria Enriquez NP LAB BLOOD ORDERABLES Final Result Performing Organization Address City/State/RUST Co de Phone Number [facility] [address] [facility] Department [place] [address] * Diagnostic Mammogram Bilateral W Ck (03/04/2024 12:39 PM CDT) Anatomical Region Laterality Modality Breast Bilateral Mammography 03/04/2024 12:4 7 PM CDT Impressions 03/04/2024 12:47 PM CDT 1. Stable benign postoperative changes of BCT in right retroareolar breast. 2. No mammographic evidence of malignancy in either breast. OVERALL FINAL ASSESSMENT: BI-RADS Category 2: Benign. RECOMMENDATION: Annual screening mammography is recommended. Electronically signed by: Gabbi Gomes MD Narrative 03/04/2024 12:47 PM CDT EXAMINATION: BILATERAL DIGITAL DIAGNOSTIC MAMMOGRAM INCLUDING CAD AND BILATERAL DIGITAL BREAST TOMOSYNTHESIS HISTORY: Annual diagnostic mammography. 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 COMPARISON: Mammography 02/28/2023, 02/27/2022, 02/13/2021, 01/16/2021 TECHNIQUE: Full field digital mammographic views of BOTH breasts were performed, including computer aided detection (CAD) and BILATERAL digital breast tomosynthesis (DBT). BREAST PARENCHYMAL COMPOSITION: There are scattered areas of fibroglandular density. MAMMOGRAM FINDINGS: Stable benign postoperative changes of breast conservation therapy are seen in the right retroareolar breast, with post radiation skin thickening. No suspicious mass, consultations, or abnormality is seen in either breast. Of note in the left upper outer breast depth, there are stable loosely grouped benign round calcifications.. Procedure Note Gabbi Gomes MD - 03/04/2024 EXAMINATION: BILATERAL DIGITAL DIAGNOSTIC MAMMOGRAM INCLUDING CAD AND BILATERAL DIGITAL BREAST TOMOSYNTHESIS HISTORY: Annual diagnostic mammography. 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 COMPARISON: Mammography 02/28/2023, 02/27/2022, 02/13/2021, 01/16/2021 TECHNIQUE: Full field digital mammographic views of BOTH breasts were performed, including computer aided detection (CAD) and BILATERAL digital breast tomosynthesis (DBT). BREAST PARENCHYMAL COMPOSITION: There are scattered areas of fibroglandular density. MAMMOGRAM FINDINGS: Stable benign postoperative changes of breast conservation therapy are seen in the right retroareolar breast, with post radiation skin thickening. No suspicious mass, consultations, or abnormality is seen in either breast. Of note in the left upper outer breast depth, there are stable loosely grouped benign round calcifications.. IMPRESSION: 1. Stable benign postoperative changes of BCT in right retroareolar breast. 2. No mammographic evidence of malignancy in either breast. OVERALL FINAL ASSESSMENT: BI-RADS Category 2: Benign. RECOMMENDATION: Annual screening mammography is recommended. 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 A (S/N [id number]) CLINICAL INFORMATION: Current height: 60 inches Maximum height: 64 inches Weight: 149 pounds Risk factors: Postmenopausal, adult fracture, cancer COMPARISON: None available FINDINGS: AP LUMBAR SPINE L1-L4: Total BMD is 1.264 g/cm2 T-score is 2.0 LEFT HIP: Total BMD is 0.714 g/cm2 T-score is -1.9 Femoral neck BMD is 0.538 g/cm2 T-score is -2.8 FRAX: FRAX not reported due to T-scores of hip, femoral neck and/or spine being at or below -2.5 (Osteoporosis). IMPRESSION: Osteoporosis. REFERENCE: Bone mineral density: Normal (T-score above or = -1.0) Low bone mass (T-score between -1.0 and -2.5) replaces the previously used term osteopenia Osteoporosis (T-score = or below -2.5) Medical evaluation for secondary causes of low bone mineral density may be appropriate. FRAX is a World Health Organization validated fracture risk assessment tool that calculates a person's 10 year probability of a major osteoporosis related fracture and hip fracture. According to the National Osteoporosis Foundation guidelines, postmenopausal women and men age 50 or older with low bone mass and a 10 year probability of a major osteoporosis related fracture = or greater than 20% or a 10 year probability of a hip fracture = or greater than 3% should be considered for treatment. For further information, including treatment recommendations, please refer to the 2019 ISCD Official Positions (http://www.iscd.org) and the NOF's Clinician's Guide to Prevention and Treatment of Osteoporosis (http://www.nof.org/professionals/clinical-guidelines) THIS IS AN ELECTRONICALLY VERIFIED FINAL REPORT 02/16/2023 11:55 AM - Electronically signed by Octaviano Carrillo M.D. MF: [id number] Report ID: [id number] Reading Location: [place] [address] Procedure Note Octaviano Carrillo MD - 02/16/2023 EXAM DESCRIPTION: DEXA AXIAL SKELETON BONE DENSITY 1 OR MORE SITES REASON FOR STUDY: 77 y/o year old F with given history of: History of osteoporosis Manager Policy/Model: [employer] A (S/N [id number]) CLINICAL INFORMATION: Current height: 60 inches Maximum height: 64 inches Weight: 149 pounds Risk factors: Postmenopausal, adult fracture, cancer COMPARISON: None available FINDINGS: AP LUMBAR SPINE L1-L4: Total BMD is 1.264 g/cm2 T-score is 2.0 LEFT HIP: Total BMD is 0.714 g/cm2 T-score is -1.9 Femoral neck BMD is 0.538 g/cm2 T-score is -2.8 FRAX: FRAX not reported due to T-scores of hip, femoral neck and/or spine beingat or below -2.5 (Osteoporosis). IMPRESSION: Osteoporosis. REFERENCE: Bone mineral density: Normal (T-score above or = -1.0) Low bone mass (T-score between -1.0 and -2.5) replaces thepreviously used term osteopenia Osteoporosis (T-score = or below -2.5) Medical evaluation for secondary causes of low bone mineral density may be appropriate. FRAX is a World Health Organization validated fracture risk assessmenttool that calculates a person's 10 year probability of a major osteoporosisrelated fracture and hip fracture. According to the National OsteoporosisFoundation guidelines, postmenopausal women and men age 50 or older with low bonemass and a 10 year probability of a major osteoporosis related fracture = or greater than 20% or a 10 year probability of a hip fracture = or greaterthan 3% should be considered for treatment. For further information, including treatment recommendations, please referto the 2019 ISCD Official Positions (http://www.iscd.org) and the NOF's Clinician's Guide to Prevention and Treatment of Osteoporosis (http://www.nof.org/professionals/clinical-guidelines) THIS IS AN ELECTRONICALLY VERIFIED FINAL REPORT 02/16/2023 11:55 AM - Electronically signed by Octaviano Carrillo M.D. MF: [id number] Report ID: [id number] Reading Location: [place] [address] Kayley Chavarria NP IMG DXA PROCEDURES Final Resu lt from Last 3 Months or Most Recently Relevant to Health Maintenance Insurance [place] [id number] [place] [id number] [facility] MEDICARE ADVANTAGE [place] [id number] Advance Directives For more information, please contact: [phone] * Full Code (Latest Code Status on File) Date Activated Date Inactivated Comments 05/29/2021 11:53 AM 05/29/2021 7:13 PM Care Teams Cnc Service Technician Relationship Specialty Start Date End Date Jori Espinoza MD [address] [facility] [place] [address] PCP - General Internal Medicine 10/19/19 Lucio Gonzales MD [facility] Cardiology 04/28/19 Aft, Vicki Sam MD PhD [address] [facility] [address] [facility] [address] [place] [address] Surgeon Surgical Oncology 05/16/21 Erin Markham MD [address] [facility] [address] [place] [address] Tearoom Host Obstetrics and Gynecology 05/16/21 Siria Enriquez, FIONA [address] [facility] [address] [id number] Nurse Practitioner Medical Oncology 08/27/23 Darleen Bailey MD [address] [facility] [address] [place] [address] Radiation Oncologist Radiation Oncology 03/18/24 Mirza Ryan MD [address] [address] Consulting Physician Nephrology 09/01/24
--- OUTSIDE RECORDS SUMMARY | 2024-11-13 13:58 | XMS_ITS | Encounter Summary ---
Author Organization [employer] Address 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
--- OUTSIDE RECORDS SUMMARY | 2024-11-13 13:58 | XMS_ITS | Encounter Summary ---
Author Organization [facility] [facility] Address [address] [place] [address] Care Team Providers Care Supervisor Fruit Grading Name Role Phone Thomas Akbar MD Primary Care Provider [phone] Encounter Details Date Type Department Care Team (Late st Contact Info) Description 12/22/1999 Outpatient Historical [facility] Rukhsana Reis MD Social History Tobacco Use Types Packs/Day Years Used Date Smoking Tobacco: Never Assessed Comments Unknown Sex and Gender Information Value Date Recorded Sex Assigned at Not on file Legal Sex Female 4:40 AM FLIGHT TECHNICIAN Gender Identity Not on file Sexual Orientation Not on file documented as of this encounter Plan of Treatment Not on file documented as of this encounter Visit Diagnoses Not on filedocumented in this encounter Care Teams Supervisor Fruit Grading Relationship Specialty Start Date End Date Thomas Akbar MD [address] [facility] [address] [place] [address] PCP - General 07/12/15 documented as of this encounter
--- OUTSIDE RECORDS SUMMARY | 2024-11-13 13:58 | XMS_ITS | Encounter Summary ---
Author Organization [employer] Address 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
--- OUTSIDE RECORDS SUMMARY | 2024-11-13 13:58 | XMS_ITS | Encounter Summary ---
Author Organization [employer] Address 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
--- OUTSIDE RECORDS SUMMARY | 2024-11-13 13:58 | XMS_ITS | Encounter Summary ---
Author Organization [employer] Address [address] [place] [address] Care Team Providers Care Product Marketing Manager Name Role Phone Thomas Akbar MD Primary Care Provider Encounter Details Date Type Department Care Team (Late st Contact Info) Description 12/01/1999 Outpatient Historical [facility] Rukhsana Reis MD Social History Tobacco Use Types Packs/Day Years Used Date Smoking Tobacco: Never Assessed Comments Unknown Sex and Gender Information Value Date Recorded Sex Assigned at Not on file Legal Sex Female 4:40 AM MANAGER EDUCATIONAL Gender Identity Not on file Sexual Orientation Not on file documented as of this encounter Plan of Treatment Not on file documented as of this encounter Visit Diagnoses Not on filedocumented in this encounter Care Teams Product Marketing Manager Relationship Specialty Start Date End Date Thomas Akbar MD [address] [facility] [address] [place] [address] PCP - General 07/12/15 documented as of this encounter
--- OUTSIDE RECORDS SUMMARY | 2024-11-13 13:58 | XMS_ITS | Encounter Summary ---
Author Organization [employer] Address 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 [place] [address] PCP - General 07/12/15 documented as of this encounter
--- OUTSIDE RECORDS SUMMARY | 2024-11-13 13:58 | XMS_ITS | Encounter Summary ---
Author Organization [facility] Address [address] [place] [address] Care Team Providers Care Dispatch Supervisor Name Role Phone Lucio Gonzales MD Unavailable [phone] Jori Espinoza MD Primary Care Provider + Aft, Vicki Sam MD PhD Unavailable [phone] Erin Markham MD Unavailable [phone] Siria Enriquez ARTIFICIAL LIMB FITTER Unavailable [phone] Darleen Bailey MD Unavailable [phone] Mirza Ryan MD Unavailable [phone] Encounter Details Date Type Department Care Team (Late st Contact Info) Description 10/29/2024 Results Follow-Up [facility] Nephrology at [address] [place] [address] Mirza Ryan MD [address] [place] [address] [address] [place] [address] Stage 3b chronic kidney disease (HCC) (Primary Dx) Social History Tobacco Use Types Packs/Day Years [...] and Family Not on file 06/05/2019 Attends [employer] Not on file 06/05 Active Member of Clubs or Organizations Not on f ile 06/05/2019 Attends Club or Organization Meetings Not on vamshi e 06/05/2019 Marital Status 06/05/2019 AUDIT-C Answer Date Recorded Q1: How often do you have a drink containing alcohol? Never 05/06/2024 Q2: How many drinks containi ng alcohol do you have on a typical day when you are drinking? Patient does not drink Q3: How often do you have si x or more drinks on one occasion? Never 05/06/2024 Personal Safety Answer Date Recorded Have you ever been in or are you currently in a harmful physical or emotional relationship or is someone making you feel afraid or unsafe? 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 on file Not on file Not on file documented as of this encounter Plan of Treatment Scheduled Orders Name Type Priority Associated Diagnoses Orde r Schedule Basic metabolic panel Lab Routine Stage 3b chronic kidney disease (HCC) Expected: 11/13/2024, Expires: 10/30/2025 documented as of this encounter Visit Diagnoses Diagnosis Stage 3b chronic kidney disease (HCC)- Primary documented in this encounter Care Teams Dispatch Supervisor Relationship Specialty Start Date End Date Jori Espinoza MD [address] [facility] [place] [address] PCP - General Internal Medicine 10/19/19 Lucio Gonzales MD Network Programmer Cardiology 04/28/19 Aft, Vicki Sam MD PhD [address] [facility] [place] [address] Surgeon Surgical Oncology 05/16/21 Erin Markham MD [address] [address] Supervisor Gelatin Plant Obstetrics and Gynecology 05/16/21 Siria Enriquez NP [address] [facility] [address] [address] Nurse Practitioner Medical Oncology 08/27/23 Darleen Bailey MD [address] [address] Radiation Oncologist Radiation Oncology 03/18/24 Mirza Ryan MD [address] [address] Consulting Physician Nephrology 09/01/24 documented as of this encounter
--- OUTSIDE RECORDS SUMMARY | 2024-11-13 13:58 | XMS_ITS | Encounter Summary ---
Author Organization [employer] Address [address] [place] [address] Care Team Providers Care Reliability Technician Name Role Phone Thomas Akbar MD Primary Care Provider [phone] Encounter Details Date Type Department Care Team (Late st Contact Info) Description 12/26/1999 Outpatient Historical [facility] Rukhsana Reis MD Social History Tobacco Use Types Packs/Day Years Used Date Smoking Tobacco: Never Assessed Comments Unknown Sex and Gender Information Value Date Recorded Sex Assigned at Not on file Legal Sex Female 4:40 AM DEVELOPMENT CONSULTANT Gender Identity Not on file Sexual Orientation Not on file documented as of this encounter Plan of Treatment Not on file documented as of this encounter Visit Diagnoses Not on filedocumented in this encounter Care Teams Reliability Technician Relationship Specialty Start Date End Date Thomas Akbar MD [address] [facility] [address] [place] [address] PCP - General 07/12/15 documented as of this encounter
--- OUTSIDE RECORDS SUMMARY | 2024-11-13 13:58 | XMS_ITS | Encounter Summary ---
Author Organization [facility] Address [address] [place] [address] Phone Care Team Providers Care Truck Rental Manager Name Role Phone Lucio Gonzales MD Unavailable Jori Espinoza MD Primary Care Provider + Aft, Vicki Sam MD PhD Unavailable Erin Markham MD Unavailable Siria Enriquez MEDIA ANALYTICS MANAGER Unavailable [phone] Darleen Bailey MD Unavailable [phone] Mirza Ryan MD Unavailable [phone] Encounter Details Date Type Department Care Team (Late st Contact Info) Description 11/02/2024 Telephone [facility] Cardiology [address] [facility] 8th [place] [address] [place] [address] Lucio Gonzales MD [address] [facility] [address] [place] [address] Social History Tobacco Use Types Packs/Day Years [...] on file Legal Sex Female 1:50 AM SENIOR BRANCH MANAGER Gender Identity Female 02/17/2021 9:58 AM CDT Sexual Orientation Straight 02/17/2021 9: 58 AM CDT 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 Gonzales. * Telephone Encounter - Susana Prasad - 11/02/2024 1:03 PM CDT Christian Pls refer to My CHart msg from earlier today. Pt is returning your call. Pt has not started any new medications. She is not taking any of the OTC medications you had inquired about. Pt has a cup of coffee in the morning and then drinks tea or soda in the evening. She does not drink much water. She has not been taking her BP readings. Pt has an appt with Dr Ryan on Sat-she has not scheduled the ultrasound as of yet. Pls return call to discuss. documented in this encounter Plan of Treatment Not on file documented as of this encounter Visit Diagnoses Not on filedocumented in this encounter Care Teams Truck Rental Manager Relationship Specialty Start Date End Date Jori Espinoza MD [address] [facility] [place] [address] PCP - General Internal Medicine 10/19/19 Lucio Gonzales MD Research Support Specialist Cardiology 04/28/19 Aft, Vicki Sam MD PhD [address] [place] [address] [place] [address] Surgeon Surgical Oncology 05/16/21 Erin Markham MD [address] [facility] [address] [place] [address] Shop Fitter Obstetrics and Gynecology 05/16/21 Siria Enriquez NP [address] [place] [address] [id number] Nurse Practitioner Medical Oncology 08/27/23 Darleen Bailey MD [address] [place] [address] [address] [place] [address] Radiation Oncologist Radiation Oncology 03/18/24 Mirza Ryan MD [address] [facility] [place] [address] Consulting Physician Nephrology 09/01/24 documented as of this encounter
--- OUTSIDE RECORDS SUMMARY | 2024-11-13 13:58 | XMS_ITS | Encounter Summary ---
Author Organization [employer] Address [address] [place] [address] Care Team Providers Care Pillow Cleaner Name Role Phone Thomas Akbar MD Primary Care Provider Encounter Details Date Type Department Care Team (Late st Contact Info) Description 08/02/1999 Outpatient Historical [facility] Jeb Mancia NO ADDRESS ON FILE Social History Tobacco Use Types Packs/Day Years Used Date Smoking Tobacco: Never Assessed Comments Unknown Sex and Gender Information Value Date Recorded Sex Assigned at Not on file Legal Sex Female 4:40 AM COMMUNITY HEALTH PLANNING DIRECTOR Gender Identity Not on file Sexual Orientation Not on file documented as of this encounter Plan of Treatment Not on file documented as of this encounter Visit Diagnoses Not on filedocumented in this encounter Care Teams Pillow Cleaner Relationship Specialty Start Date End Date Thomas Akbar MD [address] [facility] [address] [place] [address] PCP - General 07/12/15 documented as of this encounter
--- OUTSIDE RECORDS SUMMARY | 2024-11-13 13:58 | XMS_ITS | Encounter Summary ---
Author Organization [employer] Address [address] [place] [address] Care Team Providers Care Restoration Officer Name Role Phone Thomas Akbar MD Primary Care Provider Encounter Details Date Type Department Care Team (Late st Contact Info) Description 08/08/1999 Outpatient Historical [facility] Jeb Mancia NO ADDRESS ON FILE Social History Tobacco Use Types Packs/Day Years Used Date Smoking Tobacco: Never Assessed Comments Unknown Sex and Gender Information Value Date Recorded Sex Assigned at Not on file Legal Sex Female 4:40 AM HOCKEY INSTRUCTOR Gender Identity Not on file Sexual Orientation Not on file documented as of this encounter Plan of Treatment Not on file documented as of this encounter Visit Diagnoses Not on filedocumented in this encounter Care Teams Restoration Officer Relationship Specialty Start Date End Date Thomas Akbar MD [address] [place] [address] PCP - General 07/12/15 documented as of this encounter
--- OUTSIDE RECORDS SUMMARY | 2024-11-13 13:58 | XMS_ITS | Encounter Summary ---
Author Organization [employer] Address [address] [place] [address] Care Team Providers Care Car Washer Name Role Phone Thomas Akbar MD Primary Care Provider [phone] Encounter Details Date Type Department Care Team (Late st Contact Info) Description 01/01/2000 Outpatient Historical [facility] Rukhsana Reis MD Social History Tobacco Use Types Packs/Day Years Used Date Smoking Tobacco: Never Assessed Comments Unknown Sex and Gender Information Value Date Recorded Sex Assigned at Not on file Legal Sex Female 4:40 AM OUTSIDE PLANT FIELD ENGINEER Gender Identity Not on file Sexual Orientation Not on file documented as of this encounter Plan of Treatment Not on file documented as of this encounter Visit Diagnoses Not on filedocumented in this encounter Care Teams Car Washer Relationship Specialty Start Date End Date Thomas Akbar MD [address] [facility] [address] [place] [address] PCP - General 07/12/15 documented as of this encounter
--- OUTSIDE RECORDS SUMMARY | 2024-11-13 13:58 | XMS_ITS | Encounter Summary ---
Author Organization [employer] Address [address] [place] [address] Care Team Providers Care Basting Machine Operator Name Role Phone Thomas Akbar MD Primary [...] on file Legal Sex Female 4:40 AM SWABBER Gender Identity Not on file Sexual Orientation Not on file documented as of this encounter Plan of Treatment Not on file documented as of this encounter Visit Diagnoses Not on filedocumented in this encounter Care Teams Basting Machine Operator Relationship Specialty Start Date End Date Thomas Akbar MD [address] [facility] [address] [place] [address] PCP - General 07/12/15 documented as of this encounter
--- OUTSIDE RECORDS SUMMARY | 2024-11-13 13:58 | XMS_ITS | Encounter Summary ---
Author Organization [employer] Address [address] [place] [address] Care Team Providers Care Remelter Name Role Phone Thomas Akbar MD Primary Care Provider Encounter Details Date Type Department Care Team (Late st Contact Info) Description 01/09/1999 Outpatient Historical [facility] Jeb Mancia NO ADDRESS ON FILE Social History Tobacco Use Types Packs/Day Years Used Date Smoking Tobacco: Never Assessed Comments Unknown Sex and Gender Information Value Date Recorded Sex Assigned at Not on file Legal Sex Female 4:40 AM APARTMENT MAINTENANCE Gender Identity Not on file Sexual Orientation Not on file documented as of this encounter Plan of Treatment Not on file documented as of this encounter Visit Diagnoses Not on filedocumented in this encounter Care Teams Remelter Relationship Specialty Start Date End Date Thomas Akbar MD [address] [place] [address] PCP - General 07/12/15 documented as of this encounter
--- OUTSIDE RECORDS SUMMARY | 2024-11-13 13:58 | XMS_ITS | Encounter Summary ---
Author Organization [employer] Address [address] [place] [address] Care Team Providers Care Data Consultant Name Role Phone Thomas Akbar MD Primary Care Provider Encounter Details Date Type Department Care Team (Late st Contact Info) Description 09/11/1999 Outpatient Historical [facility] Jeb Mancia NO ADDRESS ON FILE Social History Tobacco Use Types Packs/Day Years Used Date Smoking Tobacco: Never Assessed Comments Unknown Sex and Gender Information Value Date Recorded Sex Assigned at Not on file Legal Sex Female 4:40 AM WOOD FINISHER Gender Identity Not on file Sexual Orientation Not on file documented as of this encounter Plan of Treatment Not on file documented as of this encounter Visit Diagnoses Not on filedocumented in this encounter Care Teams Data Consultant Relationship Specialty Start Date End Date Thomas Akbar MD [address] [place] [address] PCP - General 07/12/15 documented as of this encounter
--- OUTSIDE RECORDS SUMMARY | 2024-11-13 13:58 | XMS_ITS | Referral Summary ---
Author Organization [facility] Address [address] [place] [address] Care Team Providers Care Outside Sales Consultant Name Role Phone Lucio Gonzales MD Unavailable [phone] Jori Espinoza MD Primary Care Provider + Aft, Vicki Sam MD PhD Unavailable [phone] Erin Markham MD Unavailable [phone] Siria Enriquez PROP CUTTER Unavailable + [phone] Darleen Bailey MD Unavailable [phone] Mirza Ryan MD Unavailable [phone] Encounters Date Type Department Care Team Description 11/06/2024 10:51 AM CDT - 11/06/2024 11:59 PM CDT Hospital Encounter [place] [address] [place] [address] Age-related osteoporosis without current pathological fracture (Primary Dx) Discharge Disposition: Discharge to home or self care 11/04/2024 11:15 AM CDT Office Visit [facility] Nephrology at [address] [place] [address] Mirza Rayn MD Stage 3b chronic kidney disease (HCC) (Primary Dx); Benign hypertensive kidney disease with chronic kidney disease stage I through stage IV, or unspecified(403.10); Anemia in stage 3b chronic kidney disease (HCC); Secondary hyperparathyroidism 11/02/2024 Telephone [facility] [address] [facility] 8[address] [place] [address] [place] [address] Lucio Gonzales MD 10/29/2024 Results Follow-Up [facility] Nephrology at [place] [id number] [facility] [address] [place] [address] Mirza Ryan MD Stage 3b chronic kidney disease (HCC) (Primary Dx) 10/21/2024 Orders Only [address] [address] Fadia Hernandez, RN 10/20/2024 Orders Only [facility] [address] [place] [address] Fadia Hernandez, RN 10/19/2024 Orders Only [facility] [address] [facility] [address] [place] [phone] Siria Enriquez NP 10/19/2024 Orders Only [facility] [address] [facility] [address] [place] [phone] Roxanne Diallo, RN 10/19/2024 Orders Only [facility] [address] [facility] [address] [place] [address] Roxanne Diallo, RN 10/19/2024 Orders Only [facility] [address] [place] [address] Fadia Hernandez, RN 10/16/2024 Orders Only [facility] [address] [place] [address] Sarai Bustos RN 09/01/2024 Orders Only [facility] Oncology [address] [place] [phone] Siria Enriquez NP 09/01/2024 12:30 PM TOOLER Lab [facility] at [address] [address] Malignant neoplasm of upper-outer quadrant of right breast in female, estrogen receptor positive (HCC); Age-related osteoporosis without current pathological fracture 09/01/2024 1:00 PM TOOLER Office Visit [facility] [address] [place] [phone] Siria Enriquez NP Age-related osteoporosis without current pathological fracture (Primary Dx); Malignant neoplasm of upper-outer quadrant of right breast in female, estrogen receptor positive (HCC); Malignant neoplasm of upper-outer quadrant of left breast in female, estrogen receptor positive (HCC); Vitamin D deficiency 09/01/2024 11:30 AM TOOLER Office Visit [facility] Building 2 Radiation Oncology [address] [place] [address] Jesusita Chaidez, PA Malignant neoplasm of upper-outer quadrant of right breast in female, estrogen receptor positive (HCC) (Primary Dx); Personal history of radiation therapy 08/27/2024 Orders Only [facility] [address] [place] [phone] Roxanne Diallo, GABRIELE from Last 3 Months Allergies Active Allergy Reactions Criticality Noted Date Comments Clindamycin Other (See comments) Low 04/28/2019 other Iodine Anaphylaxis,Swelling High 02/16/2013 Cephalexin Swelling Medium 02/21/2023 Nitrofurantoin Monohyd/M-Cryst Swelling Medium 04/28 Medications amLODIPine (NORVASC) 2.5 mg tablet Take 1 tablet (2.5 mg total) by mouth daily Active cholecalcifero l, vitamin D3, (VITAMIN D3 ORAL) Take 75 mg by mouth sales performance analyst before breakfast Active dextroamphetam ine ER (DEXEDRINE [...] 1 tablet (50 mcg total) by mouth sales performance analyst before breakfast Active exemestane (AROMASIN) 25 mg [...] from 04/11/2021:Stage IA(pT1c, pN0(sn), cM0, G3, ER+, IN+, HER2+) - Signed by Darleen Bailey MD on 05/16/2021 Left ovarian cyst 01/12/2021 YARY (obstructive sleep apnea) 04/28/2019 Daytime sleepiness 04/28/2019 Nonrheumatic aortic valve stenosis 04/20/2019 Senile osteoporosis 10/21/2018 Closed fracture of lower end of left radius with routine healing 01/07/2018 Narcolepsy 05/19/2013 Overview (07/10/2022): Presumed Narcolepsy Hypertension 05/19/2013 Overview (10/26/2016): Hypertension Hypertrophic cardiomyopathy 12/08/2012 Immunizations Immunization Administration Dates Next Due Pfizer SARS-CoV-2 Monovalent Vaccination (12+ Yrs) PURPLE 10/09/2020,09/17/2020 Social History Tobacco Use Types Packs/Day Years [...] and Family Not on file 06/05/2019 Attends [employer] Not on file 06/05 Active Member [...] on file Legal Sex Female 1:50 AM TOOLER Gender Identity Female 02/17/2021 9:58 AM CDT Sexual Orientation Straight 02/17/2021 9: 58 AM CDT 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 Not on file Not on file Not on file Last Filed Vital Signs Vital Sign Reading [...] 11/04/2024 11:26 AM CDT Plan of Treatment Not on file Medical Devices Implanted Type Area It Investment/Portfolio Manager Device Identifier Shelf Expiration Date Model / Serial / Lot Bilateral Total Knee Arthroplasty Bilateral: Knee Left Wrist Orif Wrist [employer] [id number] Xcela 8fr 1.6mm 1 Lumen Power Injectable Attach Catheter Fill - [id number] Implanted:Qty: 1 on 05/29/2021 at [facility] [employer] 01/30/2026 [id number] / / [id number] Explanted Type Area It Investment/Portfolio Manager Device Identifier Shelf Expiration Date Model / Serial / Lot Bard Peripheral Vascular [id number] Ghiatas 20ga 15cm 5cm Beaded Needle Breast Wire Localization - [id number] Implanted:Qty: 1 on 04/11/2021 at [facility] Explanted:Qty: 1 on 04/11/2021 Right: Breast [employer] [id number] / / Bard Peripheral Vascular [id number] Fuentesiatas 20ga 15cm 5cm Beaded Needle Breast Wire Localization - [id number] Implanted:Qty: 1 on 04/11/2021 at [facility] Explanted:Qty: 1 on 04/11/2021 Right: Breast [employer] [id number] / / Procedures Procedure Name Priority Date/Time Associated Diagnosis Comments PTH Routine 10/28/2024 11:02 AM CDT Stage 3b chronic kidney disease (HCC) BASIC METABOLIC PANEL Routine 10/28/2024 11:02 AM CDT Stage 3b chronic kidney disease (HCC) EGFR Routine 09/01/2024 11:53 AM TOOLER Malignant neoplasm of upper-outer quadrant of right breast in female, estrogen receptor positive (HCC) Age-related osteoporosis without current pathological fracture DIFFERENTIAL AUTO Routine 09/01/2024 11: 53 AM TOOLER Malignant neoplasm of upper-outer quadrant of right breast in female, estrogen receptor positive (HCC) Age-related osteoporosis without current pathological fracture CBC WITH AUTO DIFFERENTIAL Routine 09/01/2024 11:53 AM TOOLER Malignant neoplasm of upper-outer quadrant of right breast in female, estrogen receptor positive (HCC) Age-related osteoporosis without current pathological fracture COMPREHENSIVE METABOLIC PANEL Routine 09/01/2024 11:53 AM TOOLER Malignant neoplasm of upper-outer quadrant of right [...] Results * PTH (10/28/2024 11:02 AM CDT) Parathyroid hormone, intact 72 16 - 77 [...] LAB BLOOD ORDERABLES Final Result [facility] [address] [place] [address] * (ABNORMAL) Basic metabolic panel (10/28/2024 11:02 AM CDT) Pathologist [facility] Glucose 85 65 - 99 mg/dL [facility] [...] Ryan MD LAB BLOOD ORDERABLES Final Result [facility] [address] [place] [address] * (ABNORMAL) eGFR (09/01/2024 11:53 AM TOOLER) eGFR 28(L) >=60 mL/min/1. 73 m2 Comment: [...] of Race in Diagnosing Kidney Disease, JASN 2020). The CKD-EPI equation should not be used for patients with unstable renal function and has not been validated in children and those over 70. Current interpretive data was last reviewed 2021. Testing performed by: [address] [address] Blood 09/01/2024 11:5 3 AM TOOLER 09/01/2024 11:54 AM TOOLER us Siria Enriquez NP LAB BLOOD ORDERABLES Final Result [facility] [address] [facility] [place] [address] * Differential, auto (09/01/2024 11:53 AM TOOLER) Neutrophil abs 4.1 1.5 - 6.5 K/cumm Comment:Testing performed by : [address] [address] Imm gran abs 0.0 0.0 - 0.1 K/cumm [facility] Comment:Testing performed by : [address] [address] Lymphocyte abs 1.3 0.8 - 3.3 K/cumm [facility] Comment:Testing performed by : [address] [address] Monocyte abs 0.6 0.2 - 0.8 K/cumm [facility] Comment:Testing performed by : [address] [address] Eosinophil abs 0.5 0.0 - 0.5 K/cumm [facility] Comment:Testing performed by : [address] [address] Basophil abs 0.1 0.0 - 0.1 K/cumm [facility] Comment:Testing performed by : [address] [address] Neutrophil pct 62.2 % [facility] Comment: Interpretive Data Percent cell count reference ranges are not reported, since discordance with absolute values may lead to misinterpretation of CBC data. Current Interpretive Data was last revised on 2017. Testing performed by: [address] [address] Imm gran pct 0.5 % [facility] Comment: Interpretive Data Percent cell count reference ranges are not reported, since discordance with absolute values may lead to misinterpretation of CBC data. Current Interpretive Data was last revised on 2017. Testing performed by: [address] [address] Lymphocyte pct 19.4 % [facility] Comment: Interpretive Data Percent cell count reference ranges are not reported, since discordance with absolute values may lead to misinterpretation of CBC data. Current Interpretive Data was last revised on 2017. Testing performed by: [address] [address] Monocyte pct 9.4 % [facility] Comment: Interpretive Data Percent cell count reference ranges are not reported, since discordance with absolute values may lead to misinterpretation of CBC data. Current Interpretive Data was last revised on 2017. Testing performed by: [address] [place] [address] Eosinophil pct 7.1 % [facility] Comment: Interpretive Data Percent cell count reference ranges are not reported, since discordance with absolute values may lead to misinterpretation of CBC data. Current Interpretive Data was last revised on 2017. Testing performed by: [address] [address] Basophil pct 1.4 % [facility] Comment: Interpretive Data Percent cell count reference ranges are not reported, since discordance with absolute values may lead to misinterpretation of CBC data. Current Interpretive Data was last revised on 2017. Testing performed by: [address] [address] Blood 09/01/2024 11:5 3 AM TOOLER 09/01/2024 11:54 AM TOOLER Siria Enriquez PROP CUTTER LAB BLOOD ORDERABLES Final Result [facility] [address] Department [place] [address] * CBC with auto differential (09/01/2024 11:53 AM TOOLER) WBC 6.5 3.8 - 9.9 K/cumm Comment:Testing performed by : [address] [address] Hgb 12.6 11.9 - 15.5 g/dL [facility] Comment:Testing performed by : [address] [address] Hct 37.3 35.6 - 45.5 % [facility] Comment:Testing performed by : [address] [address] Plt 191 150 - 400 K/cumm [facility] Comment:Testing performed by : [address] [address] MPV 9.2 9.1 - 12.3 fL [facility] Comment:Testing performed by : [address] [address] RBC 3.94 3.90 - 5.20 M/cumm [facility] Comment:Testing performed by : [address] [address] MCV 94.7 81.3 - 96.4 fL [facility] Comment:Testing performed by : [address] [address] MCH 32.0 27.1 - 33.3 pg [facility] Comment:Testing performed by : [address] [address] MCHC 33.8 32.3 - 35.7 g/dL [facility] Comment:Testing performed by : [address] [address] RDW CV 12.3 11.1 - 14.9 % [facility] Comment:Testing performed by : [address] [address] RDW SD 42.7 35.7 - 48.1 fL [facility] Comment:Testing performed by : [address] [address] NRBC abs 0.00 0.00 - 0.01 K/cumm [facility] Comment:Testing performed by : [address] [address] Blood 09/01/2024 11:5 3 AM TOOLER 09/01/2024 11:54 AM TOOLER Siria Enriquez NP LAB BLOOD ORDERABLES Final Result [facility] [address] [facility] Department of Laboratories [place], [place] [id number] * (ABNORMAL) Comprehensive metabolic panel (09/01/2024 11:53 AM TOOLER) Sodium 135 135 - 145 mmol/L Comment:Testing performed by : [address] [address] Potassium, pl 4.6 3.3 - 4.9 mmol/L [facility] Comment:Testing performed by : [address] [address] Chloride 98 97 - 110 mmol/L [facility] Comment:Testing performed by : [facility], [address] [place] [address]., [address] CO2 26 22 - 32 mmol/L [facility] Comment:Testing performed by : [address] [address] Anion gap 11 2 - 15 mmol/L [facility] Comment:Testing performed by : [address], [place]., [address] BUN 35(H) 6 - 25 mg/dL [facility] Comment:Testing performed by : [address], [place]., [address] Creatinine 1.80(H) 0.60 - 1.10 mg/dL [facility] Comment:Testing performed by : [address] [address] Glucose 90 70 - 199 mg/dL [facility] Comment: Interpretive Data Fasting glucose >/= 126 [...] classification and Diagnosis of Diabetes Diabetes Care 202; 46: S19-S40. Current interpretive data was last revised 2022. Testing performed by: [address] [address] Calcium 10.6(H) 8.5 - 10.3 mg/dL [facility] Comment:Testing performed by : [address] [address] Bilirubin, total 0.4 0.1 - 1.2 mg/dL [facility] Comment:Testing performed by : [address] [address] Protein, pl 7.3 6.5 - 8.5 g/dL [facility] Comment:Testing performed by : [address] [address] Albumin 4.3 3.5 - 5.0 g/dL [facility] Comment:Testing performed by : [facility], [address] [place] [address]., [address] Alk phos 87 40 - 130 Units/L [facility] Comment:Testing performed by : [address] [address] ALT 17 7 - 45 Units/L [facility] Comment:Testing performed by : [address] [address] AST 23 10 - 45 Units/L [facility] Comment:Testing performed by : [address] [address] Blood 09/01/2024 11:5 3 AM TOOLER 09/01/2024 11:54 AM TOOLER us Siria Enriquez NP LAB BLOOD ORDERABLES Final Result [facility] [address] [facility] Department [place] [address] * Diagnostic Mammogram Bilateral W Ck (03/04/2024 [...] Electronically signed by: Gabbi Gomes MD Lis Rodriguez NP [facility]ED[facility] Final Result * Dexa Axial Skeleton Bone Density 1 or 2 Site (02/15/2023 1:25 PM CDT) Anatomical Region Laterality Modality Body N/A Mammography 02/16/2023 11:5 4 AM CDT Narrative 02/16/2023 11:55 AM CDT EXAM DESCRIPTION: DEXA AXIAL SKELETON BONE DENSITY 1 OR MORE SITES REASON FOR STUDY: 77 y/o year old F with given history of: History of osteoporosis It Investment/Portfolio Manager/Model: [employer] A (S/N [id number]) CLINICAL INFORMATION: Current height: 60 inches Maximum [...] Octaviano Carrillo M.D. MF: JAYY Report ID: [id number] Reading Location: [place] [address] Procedure Note Octaviano Carrillo MD - 02/16/2023 EXAM DESCRIPTION: DEXA AXIAL SKELETON BONE DENSITY 1 OR MORE SITES REASON FOR STUDY: 77 y/o year old F with given history of: History of osteoporosis It Investment/Portfolio Manager/Model: [employer] A (S/N [id number]) CLINICAL INFORMATION: Current height: 60 inches Maximum [...] Octaviano Carrillo M.D. MF: JAYY Report ID: [id number] Reading Location: [place] [address] Kayley Chavarria NP IM DXA PROCEDURES Final Resu lt from Last 3 Months or Most Recently Relevant to Health Maintenance Insurance [facility] MEDICARE ADVANTAGE [facility] MEDICARE ADVANTAGE Advance Directives For more information, please contact: [phone] * Full Code (Latest Code Status on File) Date Activated Date Inactivated Comments 05/29/2021 11:53 AM 05/29/2021 7:13 PM Care Teams Outside Sales Consultant Relationship Specialty Start Date End Date Jori Espinoza MD [address] [place] [address] PCP - General Internal Medicine 10/19/19 Lucio Gnozales MD Career Guidance Technician Cardiology 04/28/19 Aft, Vicki Sam MD PhD [facility] [facility] [address] [place] [address] Surgeon Surgical Oncology 05/16/21 Erin Markham MD [address] [facility] [address] [place] [address] Electrical Designer Drafter Obstetrics and Gynecology 05/16/21 Siria Enriquez NP [address] [facility] [address] [address] Nurse Practitioner Medical Oncology 08/27/23 Darleen Bailey MD [address] [address] Radiation Oncologist Radiation Oncology 03/18/24 Mirza Ryan MD [address] [address] Consulting Physician Nephrology 09/01/24
--- OUTSIDE RECORDS SUMMARY | 2024-11-13 13:58 | XMS_ITS | Encounter Summary ---
Author Organization [employer] Address [address] [place] [address] Care Team Providers Care Supervisor Sewer System Name Role Phone Thomas Akbar MD Primary [...] on file Legal Sex Female 4:40 AM POKE IN Gender Identity Not on file Sexual Orientation Not on file documented as of this encounter Plan of Treatment Not on file documented as of this encounter Visit Diagnoses Not on filedocumented in this encounter Care Teams Supervisor Sewer System Relationship Specialty Start Date End Date Thomas Akbar MD [address] [facility] [address] [place] [address] PCP - General 07/12/15 documented as of this encounter
--- OUTSIDE RECORDS SUMMARY | 2024-11-13 13:58 | XMS_ITS | Encounter Summary ---
Author Organization [employer] Address [address] [place] [address] Care Team Providers Care Cyber Threat Analyst Name Role Phone Thomas Akbar MD Primary Care Provider [phone] Encounter Details Date Type Department Care Team (Late st Contact Info) Description 08/20/2002 Outpatient [facility] [address] [place] [address] 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
--- OUTSIDE RECORDS SUMMARY | 2024-11-13 13:58 | XMS_ITS | Encounter Summary ---
Author Organization [employer] Address 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
--- OUTSIDE RECORDS SUMMARY | 2024-11-13 13:58 | XMS_ITS | Encounter Summary ---
Author Organization [facility] Address 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
[2024-11-13 14:03] VITALS: BP 146/63; PULSE 64; RESP 20; TEMP 38.2; O2SAT 95
--- NOTE | 2024-11-13 14:13 | ED.URI ---
HPI - URI/Sore Throat General Chief Complaint: Upper Respiratory Infection Stated Complaint: headache/cough Time Seen by Provider: 11/13/24 14:05 Source: patient and RN notes reviewed Mode of arrival: ambulatory Limitations: no limitations History of Present Illness HPI Narrative: 79-year-old female presents Express Care complaining of upper respiratory symptoms for 2 days. Patient reports a headache, dry cough, fevers, congestion. Patient denies sore throat, ear pain, chest pain or shortness of breath. Patient denies any abdominal pain, nausea, vomiting, diarrhea. Patient is taking Mucinex [id number] for symptoms. Patient has significant past medical history includes hypertension, chronic kidney disease, and multiple sclerosis. Related Data Home Medications ?Medication ?Instructions ?Recorded ?Confirmed ?Last Taken ?Type lisinopril 10 1 tablet PO DAILY 08/30/19 12/19/22 03/25/20 06:00 History mg-hydrochlorothiazide 12.5 mg tablet dextroamphetamine sulfate 15 mg 15 mg PO DAILY 03/17/20 12/19/22 03/24/20 History capsule,extended release levothyroxine 50 mcg tablet 50 mcg PO DAILY 03/17/20 12/19/22 03/25/20 06:00 History (Euthyrox) metoprolol succinate 50 mg 75 mg PO DAILY 03/17/20 12/19/22 03/25/20 06:00 History tablet,extended release 24 hr alpha lipoic acid 200 mg tablet 1,200 mg PO DAILY 12/19/22 12/19/22 Unknown History amlodipine 2.5 mg tablet 2.5 mg PO DAILY 12/19/22 12/19/22 Unknown History cholecalciferol (vitamin D3) 125 75 unit PO DAILY 12/19/22 12/19/22 Unknown History mcg (5,000 unit) tablet (Vitamin D3) exemestane 25 mg tablet 25 mg PO DAILY 12/19/22 12/19/22 Unknown History levocarnitine 500 mg capsule 500 mg PO QID 12/19/22 12/19/22 Unknown History pyridoxine (vitamin B6) 200 mg 200 mg PO DAILY 12/19/22 12/19/22 Unknown History tablet,extended release vibegron 75 mg tablet (Gemtesa) 75 mg PO DAILY 12/19/22 12/19/22 Unknown History Allergies Allergy/AdvReac Type Severity Reaction Status Date / Time cephalexin (From Keflex) Allergy Unknown Verified 11/13/24 14:00 iodine Allergy Anaphylaxis Verified 11/13/24 14:00 iohexol (From contrast - CT, Allergy Anaphylaxis Verified 11/13/24 14:00 X-RAY) nitrofurantoin (From Allergy Unknown Verified 11/13/24 14:00 Macrobid) Review of Systems Review of Systems: CONSTITUTIONAL: Positive for fevers. Negative for body aches, Chills, or sweats. EYES: Denies visual changes, redness, or discharge. ENT: Denies rhinorrhea, sore throat, or otalgia. Positive for congestion. CARDIOVASCULAR: Denies chest pain, palpitations, or edema. RESPIRATORY: Positive for cough. Negative for dyspnea. GASTROINTESTINAL: Denies abdominal pain, nausea, vomiting, or diarrhea. GENITOURINARY: Denies dysuria or hematuria. SKIN: Denies rash or itching. MUSCULOSKELETAL: Denies back pain, joint pain, or myalgia. NEUROLOGIC: Positive for headache. Negative for numbness, or weakness. PSYCHIATRIC: Denies anxiety or depression. All other systems reviewed are negative, except as documented in HPI. [facility] Past Medical History Medical History (Updated 11/13/24 @ 14:43 by Vahe Lewis APRN) Cellulitis History of blood transfusion Anemia Hypothyroid Hyperthyroidism Osteoporosis Arthritis GERD (gastroesophageal reflux disease) Hiatal hernia CPAP (continuous positive airway pressure) dependence Sleep apnea Heart murmur HTN (hypertension) Multiple sclerosis Surgical History Surgical History History of bunionectomy right H/O left wrist surgery with plate History of bilateral knee replacement History of appendectomy Family History Family History Father Emphysema lung Mother Emphysema lung Sibling Heart disease Sibling Polymyositis Social History Social History Smoking status: Never smoker Alcohol intake: never Substance use: never Comments At the time of my signature, I reviewed and agree with the nursing past medical, surgical, social, and family history. There is no relevant family history pertinent to the patient complaint. Exam Narrative: GENERAL: This is a well-nourished, well-developed adult, in no apparent distress. They are non ill-appearing, nontoxic appearing. HEAD: normocephalic, atraumatic. EYES: Sclera clear/white. Conjunctiva normal. Extraocular movements intact. Vision is grossly intact. EARS: External ears normal, auditory canals clear and without drainage, TMs normal without perforation. Hearing grossly intact. NOSE: External nose normal with no obvious nasal discharge, nasal turbinates are erythematous bilaterally, no rhinorrhea. THROAT: Mucous membranes moist, posterior pharynx mild erythema without swelling or exudate. Postnasal drip present. Uvula midline. NECK: Neck supple, non-tender without lymphadenopathy, masses or thyromegaly. CARDIOVASCULAR: Regular rate and rhythm without murmurs, gallops, or rubs. RESPIRATORY: Lung sounds diminished to the right lung base. Lungs clear to auscultation throughout the rest of the lungs. Breath sounds equal bilaterally. No wheezes, rales, or rhonchi. Respiratory rate normal, respiratory effort nonlabored, no respiratory distress SKIN: warm, Dry, intact with no suspicious lesions or rash, good texture and turgor. NEURO: awake, alert, and oriented to person, place and time. There were no obvious focal neurologic abnormalities. EXTREMITIES: No joint tenderness, effusion, or edema noted. Course Course Emergency Course: Patient is aware of diagnosis, understands and agrees to treatment plan. Anticipatory guidance given. Patient agrees to follow-up as directed and is aware of reasons to seek care at the emergency department. Portions of this record may have been created with voice recognition software Level of Care: Express Care Visit Vital Signs Vital signs: Vital Signs Temperature 100.7 F H 11/13/24 14:03 Pulse Rate 64 11/13/24 14:03 Respiratory Rate 20 11/13/24 14:03 Blood Pressure 146/63 H 11/13/24 14:03 Pulse Oximetry 95 11/13/24 14:03 Oxygen Delivery Room Air 11/13/24 14:03 Temperature 100.7 F H 11/13/24 14:03 Pulse Rate 64 11/13/24 14:03 Respiratory Rate 20 11/13/24 14:03 Blood Pressure 146/63 H 11/13/24 14:03 Pulse Oximetry 95 11/13/24 14:03 Oxygen Delivery Room Air 11/13/24 14:03 Reviewed MDM - URI/Sore Throat MDM Narrative Medical decision making narrative: COVID and flu are negative. Chest x-ray shows clear without any evidence of pneumonia or any acute findings. Hiatal hernia present on x-ray, patient has a history of a hiatal hernia. Discussed physical exam findings. Advised supportive measures and signs/symptoms to go to the ER. Pt is appropriate for outpt treatment and f/u. Differential Diagnosis Differential diagnosis: Likely upper respiratory infection, viral infection and other (Pneumonia) Lab Data Labs: Lab Results 11/13/24 Range/Units 14:19 POC Influenza A Ag Negative (Negative) POC Influenza B Ag Negative (Negative) POC SARS CoV-2 Ag Negative (Negative) Critical Care Time Critical Care Time Critical Care Time: No Discharge Plan Discharge Clinical Impression: Upper respiratory infection Qualifiers: URI type: unspecified viral URI Qualified Code(s): J06.9 - Acute upper respiratory infection, unspecified Patient Disposition: Home Condition: Stable Instructions: Upper Respiratory Infection (ED) Additional Instructions: Your COVID and flu in flu were negative. Your chest x-ray was clear without pneumonia Viral illness may last between 7-21 days; antibiotics do not cure viral illness and are NOT recommended at this time. Recommend antihistamine such as Benadryl at night time and Zyrtec or Gayla during the day Use albuterol inhaler as needed for any shortness of breath or wheezing Use Flonase as directed for nasal congestion Cough syrup may cause drowsiness; avoid driving or take it at night time. Also, recommend symptomatic treatment includes: rest, fluids, and increase humidity of the air at home. Recommend Acetaminophen or ibuprofen as directed on the bottle to reduce fever, pain, headache. Please schedule a follow-up visit with your personal physician for further evaluation and treatment within 3-5days. If your symptoms persist, change or worsen significantly before you can contact your personal physician then please, without delay, go to the emergency department for further evaluation. Patient Language: Swazi Prescriptions: New albuterol sulfate [Ventolin HFA] 90 mcg/actuation HFA aerosol inhaler 2 puff inhalation QID PRN (Reason: shortness of breath or wheezing) Qty: 8.5 0RF fluticasone propionate [Flonase Allergy Relief] 50 mcg/actuation spray,suspension 2 spray intranasal DAILY Qty: 1 0RF Rx Instructions: administer into each nostril No Action lisinopril-hydrochlorothiazide 10-12.5 mg Tablet 1 tablet PO DAILY amlodipine 2.5 mg tablet 2.5 mg PO DAILY exemestane 25 mg tablet 25 mg PO DAILY Gemtesa 75 mg tablet 75 mg PO DAILY pyridoxine (vitamin B6) 200 mg Tablet Extended Release 200 mg PO DAILY cholecalciferol (vitamin D3) [Vitamin D3] 125 mcg (5,000 unit) Tablet 75 unit PO DAILY alpha lipoic acid 200 mg Tablet 1,200 mg PO DAILY levocarnitine 500 mg Capsule 500 mg PO QID Rx Instructions: must administer with a meal/food hydrocodone-acetaminophen 5-325 mg tablet 1 tablet PO Q6H PRN (Reason: pain) Qty: 5 0RF prednisone 10 mg tablet 10 mg PO DIRECTED Qty: 42 0RF Rx Instructions: see taper instructions 6 tabs daily for 2 days, 5 tabs daily for 2 days, 4 tabs for 2 days, 3 tabs daily for 2 days, 2 tabs daily 2 days and 1 tab daily for 2 days triamcinolone acetonide 0.1 % ointment 1 applic topical BID Qty: 80 0RF Rx Instructions: never apply to face famotidine [Pepcid] 20 mg tablet 20 mg PO DAILY Qty: 10 0RF dextroamphetamine sulfate 15 mg capsule, extended release 15 mg PO DAILY metoprolol succinate 50 mg tablet extended release 24 hr 75 mg PO DAILY levothyroxine [Euthyrox] 50 mcg Tablet 50 mcg PO DAILY Follow-up/Referrals: Alexis,Rolo Wright MD [Primary Care Provider] - Time of Disposition: 14:42
[2024-11-13 14:26] LABS: EDCOVIDSCREEN Negative (Negative); EDINFLUASCREEN Negative (Negative); EDINFLUBSCREEN Negative (Negative)
== END 2024-11-13 14:47 | disposition home or self-care (01) ==
PROVIDERS: PCP Internal Medicine
DX: J06.9 Acute upper respiratory infection, unspecified (principal); E03.9 Hypothyroidism, unspecified; I10 Essential (primary) hypertension; G35 Multiple sclerosis; Z20.822 Contact with and (suspected) exposure to COVID-19
CPT/HCPCS: 71046; 87426; 87804; 99213; G0463

== ENCOUNTER 2025-02-12 11:14 | Emergency (ER) | payer MEDICARE, SELFPAY ==
--- OUTSIDE RECORDS SUMMARY | 2025-02-12 11:19 | XMS_ITS | Encounter Summary ---
Author Organization [facility] Address [address] [place] [address] Care Team Providers Care Distribution Driver Name Role Phone Lucio Gonzales MD Unavailable [phone] Jori Espinoza MD Primary Care Provider + Darleen Bailey MD Unavailable [phone] Cuong Figueroa DO Unavailable [phone] AftVicki MD PhD Unavailable [phone] Erin Markham MD Unavailable [phone] Siria Enriquez NP Unavailable + [phone] Darleen Bailey MD Unavailable [phone] Mirza Ryan MD Unavailable [phone] Alaina Villalba MD Unavailable Encounter Details Date Type Department Care Team (Late st Contact Info) Description 10/21/2020 Telephone [facility] Radiology [address] [place], [place] [id number] Javier Avery MD [address] [place], [place] [id number] Social History Tobacco Use Types Packs/Day Years [...] and Family Not on file 06/05/2019 Attends [employer] Services Not on file 06/05 Active Member of Clubs or Organizations Not on f ile 06/05/2019 Attends Club or Organization Meetings Not on vamshi e 06/05/2019 Marital Status 06/05/2019 Comments No Sex and Gender Information Value Date Recorded Sex Assigned at Not on file 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 Gender Identity Female 02/17/2021 9:58 AM CDT [...] documented as of this encounter Care Teams Distribution Driver Relationship Specialty Start Date End Date Jori Espinoza MD [address] [place] [address] PCP - General Internal Medicine 10/19/19 Lucio Gonzales MD Saddle Maker Cardiology 04/28/19 12/01/24 Darleen Bailey MD [address] [place] [address] Radiation Oncologist Radiation Oncology 05/16/21 Cuong Figueroa DO [address] [place] [address] Medical Oncologist/Water Taxi Operator Hematology and Oncology 05/16/21 08/26/23 Aft, Vicki Sam MD PhD [address] [place] [id number] Surgeon Surgical Oncology 05/16/21 Erin Markham MD [address] [address] Autopsy Assistant Obstetrics and Gynecology 05/16/21 Siria Enriquez NP [address] [place] [address] Nurse Practitioner Medical Oncology 08/27/23 Darleen Bailey MD [address] [place] [address] Radiation Oncologist Radiation Oncology 03/18/24 Mirza Ryan MD [address] [address] Consulting Physician Nephrology 09/01/24 Alaina Villalba MD [address] SURG UROLOGY [place], [place] [id number] Consulting Physician Urology 12/04/24 documented as of this encounter
--- OUTSIDE RECORDS SUMMARY | 2025-02-12 11:19 | XMS_ITS | Encounter Summary ---
Author Organization [facility] Address [address] [place] [address] Phone Care Team Providers Care Regulatory Attorney Name Role Phone Clint Rodriguez MD Primary Care Provider Lucio Gonzales MD Unavailable Jori Espinoza MD Primary Care Provider + Darleen Bailey MD Unavailable [phone] Cuong Figueroa DO Unavailable [phone] GenarotVicki MD PhD Unavailable [phone] Erin Markham MD Unavailable [phone] Siria Enriquez CASING CREW PUSHER Unavailable + [phone] Darleen Bailey MD Unavailable [phone] Mirza Ryan MD Unavailable [phone] Alaina Villalba MD Unavailable Encounter Details Date [...] on file 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 Sara Brown RN generated from [facility] 04/13/2014 04/13/2014 04/10/2021 3:32 PM C DT documented as of this encounter Care Teams Regulatory Attorney Relationship Specialty Start Date End Date Clint Rodriguez MD [address] [address] PCP - General 10/19/16 10/18/19 Jori Espinoza MD [address] [place] [address] PCP - General Internal Medicine 10/19/19 Lucio Gonzales MD [address] [address] Design Tech Cardiology 04/28/19 12/01/24 Darleen Bailey MD [address] [place] [address] Radiation Oncologist Radiation Oncology 05/16/21 Cuong Figueroa DO [address] [place] [address] Medical Oncologist/Certified Ophthalmic Technologist Hematology and Oncology 05/16/21 08/26/23 GenarotVicki MD PhD [address] [place] [address] Surgeon Surgical Oncology 05/16/21 Erin Markham MD [address] [address] Jet Handler Obstetrics and Gynecology 05/16/21 Siria Enriquez NP [address] [place] [address] [address] [place] [address] Nurse Practitioner Medical Oncology 08/27/23 Darleen Bailey MD [address] [place] [address] Radiation Oncologist Radiation Oncology 03/18/24 Mirza Ryan MD [address] [address] Consulting Physician Nephrology 09/01/24 Alaina Villalba MD [address] [place] [address] Consulting Physician Urology 12/04/24 documented as of this encounter
--- OUTSIDE RECORDS SUMMARY | 2025-02-12 11:19 | XMS_ITS | Clinical Summary ---
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 Gender Identity Not on file Sexual Orientation [...] 1-dose 75+ series) 2020 INFLUENZA VACCINE (#1) 2025 Procedures Procedure Name Priority Date/Time Associated Diagnosis Comments ENDOSCOPY, COLON, DIAGNOSTIC Routine 02/18/2013 from Last 3 Months or Most Recently Relevant to Health Maintenance Results * (ABNORMAL) ENDOSCOPY, COLON, DIAGNOSTIC (02/18/2013) Olayinka Salvador MD GI PROCEDURE ORDERABLES [facility] from Last 3 Months or Most Recently Relevant to Health Maintenance Insurance MEDICARE PART A AND B [facility] Care Teams Fine Dining Server Relationship Specialty Start Date End Date Thomas Akbar MD [address] [facility] [address] [place] [id number] PCP - General 07/12/15
--- OUTSIDE RECORDS SUMMARY | 2025-02-12 11:19 | XMS_ITS | Referral Summary ---
Author Organization [facility] al Address [address] [place] [address] Care Team Providers Care Casing Cooker Name Role Phone Jori Espinoza MD Primary Care Provider + Aft, Vicki Sam MD PhD Unavailable [phone] Erin Markham MD Unavailable [phone] Siria Enriquez MOUNT LOADER Unavailable +- [phone] Darleen Bailey MD Unavailable [phone] Mirza Ryan MD Unavailable [phone] Alaina Villalba MD Unavailable Encounters Date Type Department Care Team Description 12/29/2024 9:20 AM CDT Office Visit [facility] ([facility]) - [facility] Urology [address] [place] [address] Advanced Medicine 11th [place] [address] [place] [address] Alaina Villalba MD UPJ (ureteropelvic junction) obstruction (Primary Dx) 12/02/2024 Results Follow-Up [facility] Nephrology at [address] [place] [address] Mirza Ryan MD US Kidney Complete 12/02/2024 Results Follow-Up [facility] Nephrology at [address] [place] [address] Mirza Ryan MD Renal function panel, eGFR 12/02/2024 12:50 PM CDT Lab [facility] Lab [address] [place] [address] Stage 3b chronic kidney disease (HCC) 11/25/2024 2:12 PM CDT - 11/25/2024 11:59 PM CDT Hospital Encounter [facility] Ultrasound [address] [place] [address] [id number] Stage 3b chronic kidney disease (HCC) Discharge Disposition: Discharge to home or self care from Last 3 Months Allergies Active Allergy Reactions Criticality Noted Date Comments Clindamycin Other (See comments) Low 04/28/2019 other Iodine Anaphylaxis,Swelling High 02/16/2013 Cephalexin Swelling Medium 02/21/2023 Nitrofurantoin Monohyd/M-Cryst Swelling Medium 04/28 Medications amLODIPine (NORVASC) 2.5 mg tablet Take 1 tablet (2.5 mg total) by mouth daily Active cholecalciferol , vitamin D3, (VITAMIN D3 ORAL) Take 75 mg by mouth director career before breakfast Active dextroamphetami ne ER (DEXEDRINE SPANSULE) 15 mg 24 hr capsule Take 1 capsule (15 mg total) by mouth daily 3 Active vibegron (Gemtesa) 75 mg tablet Take 1 tablet by mouth daily 30 tablet 7 4 Active calcitRIOL (ROCALTROL) 0.25 mcg capsule Take 1 capsule (0.25 mcg total) by mouth 3 (three) times a week Take 1 capsule (0.25 mcg total) by mouth 3 (three) times a week on Mondays, Wednesdays, and Fridays. 90 capsule 4 Active denosumab (PROLIA) 60 mg/mL syringe Inject under the skin 2 x yearly Active cetirizine (ZyrTEC) 10 mg chewable tablet Take 1 tablet (10 mg total) by mouth as needed for allergies Active cyanocobalamin, vitamin B-12, 500 mcg lozenge Take by mouth Active levothyroxine (SYNTHROID) 50 mcg tablet Take 1 tablet (50 mcg total) by mouth director career before breakfast Active exemestane (AROMASIN) 25 mg tabletIndicatio ns:advanced breast cancer progress post-antiestrog en tx Take 1 tablet (25 mg total) by mouth daily 90 tablet 3 5 Active metoprolol XL (TOPROL-XL) 50 mg extended release tablet TAKE 1 & 1/2 (ONE & ONE-HALF) TABLETS BY MOUTH ONCE DAILY 135 tablet 3 5 Active Active Problems Problem Noted Date Diagnosed Date [...] from 04/11/2021:Stage IA(pT1c, pN0(sn), cM0, G3, ER+, NV+, HER2+) - Signed by Darleen Bailey MD [...] and Family Not on file 06/05/2019 Attends [employer] Not on file 06/05 Active Member of Clubs or Organizations Not on f ile 06/05/2019 Attends Club or Organization Meetings Not on vamshi e 06/05/2019 Marital Status 06/05/2019 AUDIT-C Answer Date Recorded Q1: How often do you have a drink containing alc ohol? Never 11/04/2024 Average Number of Drinks Not on file 025 Frequency of Binge Drinking Not on file 10/20 Personal Safety Answer Date Recorded Have you ever been in or are you currently in a harmful physical or emotional relationship or is someone making you feel afraid or unsafe? 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 Ang[employer] 01/30/2026 [id number] / / [id number] Explanted Type Area Eligibility Counselor Device Identifier Shelf Expiration Date Model / Serial / Lot Bard Peripheral V[employer] [id number] Ghiatas 20ga 15cm 5cm Beaded Needle Breast Wire Localization - [id number] Implanted:Qty: 1 on 04/11/[address] [facility] Explanted:Qty: 1 on 04/11/2021 Right: Breast [employer] [id number] / / Bard [employer] 62226 Ghiatas 20ga 15cm 5cm Beaded Needle Breast Wire Localization - [id number] Implanted:Qty: 1 on 04/11/[address] [facility] Explanted:Qty: 1 on 04/11/2021 Right: Breast [employer] [id number] / / Procedures Procedure Name Priority Date/Time Associated Diagnosis Comments POCT URINALYSIS DIPSTICK Routine 12/29/2024 9:58 AM CDT UPJ (ureteropelvic junction) obstruction EGFR Routine 12/02/2024 12:58 PM CDT Stage 3b chronic kidney disease (HCC) RENAL FUNCTION PANEL Routine 12/02/2024 12:58 PM CDT Stage 3b chronic kidney disease (HCC) US KIDNEY COMPLETE Schedule Routine, Read Routine (OP Routine) 11/25/2024 2:35 PM CDT Stage 3b chronic kidney disease (HCC) DIAGNOSTIC MAMMOGRAM BILATERAL W CK Schedule Routine, Read Routine (OP Routine) 03/04/2024 12:39 PM CDT History of breast cancer DEXA AXIAL SKELETON BONE DENSITY 1 OR MORE SITES Schedule Routine, Read Routine (OP Routine) 02/15/2023 1:25 PM CDT Senile osteoporosis from Last 3 Months or Most Recently Relevant to Health Maintenance Results * POCT urinalysis dipstick (12/29/2024 9:58 AM CDT) Glucose, ur, POC Negative Negative Bilirubin, ur, POC Negative Negative Ketones, ur, POC Negative Negative Blood, ur, POC Negative Negative pH, ur, POC 6.0 5.0 - 8.0 Protein, ur, POC Negative Negative Nitrite, ur, POC Negative Negative Leukocytes, ur, POC Negative Negative Lot Number 0 Urine 12/29/2024 9:5 8 AM CDT Alaina Villalba MD POINT OF CARE TEST ORDERABLES Ed ited Result - Final * (ABNORMAL) eGFR (12/02/2024 12:58 PM CDT) eGFR 32(L) >=60 mL/min/1. 73 m2 Comment: Interpretive Data [...] was last reviewed 2021. Testing performed by: [facility], [address] [place] [address]., [address] Blood 12/02/2024 12:5 8 PM CDT 12/02/2024 1:39 PM CDT Mirza Ryan MD LAB BLOOD ORDERABLES Final Result [facility] [address] [facility] [place] [address] * (ABNORMAL) Renal function panel (12/02/2024 12:58 PM CDT) Sodium 141 135 - 145 mmol/L Comment:Testing performed by : [address] [address] Potassium, pl 4.2 3.3 - 4.9 mmol/L [facility] Comment:Testing performed by : [address] [address] Chloride 105 97 - 110 mmol/L [facility] Comment:Testing performed by : [address] [address] CO2 26 22 - 32 mmol/L [facility] Comment:Testing performed by : [address] [address] Anion gap 10 2 - 15 mmol/L [facility] Comment:Testing performed by : [address] [address] BUN 28(H) 6 - 25 mg/dL [facility] Comment:Testing performed by : [address] [address] Creatinine 1.61(H) 0.60 - 1.10 mg/dL [facility] Comment:Testing performed by : [address] [address] Glucose 100 70 - 199 mg/dL [facility] Comment: Interpretive [...] was last revised 2022. Testing performed by: [address] [address] Calcium 10.5(H) 8.5 - 10.3 mg/dL [facility] Comment:Testing performed by : [address] [address] Phosphorus, pl 2.5 2.3 - 4.5 mg/dL [facility] Comment:Testing performed by : [address] [address] Albumin 4.4 3.5 - 5.0 g/dL [facility] Comment:Testing performed by : [address] [address] Blood 12/02/2024 12:5 8 PM CDT 12/02/2024 1:39 PM CDT Mirza Ryan MD LAB BLOOD ORDERABLES Final Result [facility] [address] [facility] [place], [place] [id number] * US Kidney Complete (11/25/2024 2:35 PM CDT) Anatomical Region Laterality Modality Kidney N/A Ultrasound 12/02/2024 7:08 AM CDT Narrative 12/02/2024 7:10 AM CDT EXAM DESCRIPTION: US KIDNEY COMPLETE REASON FOR STUDY: upj obstruction, jose TECHNIQUE: Ultrasound of the kidneys and urinary bladder was performed with grayscale imaging. COMPARISON: 11/01/2022 FINDINGS: Right Kidney: Small in size and measures 8.3 cm. Normal echogenicity. Prominent renal pelvis with dilated ureters without overt hydro nephrosis. Left Kidney: Small in size and measures 8.8 cm. Normal echogenicity. Dilated renal pelvis and ureters without overt hydronephrosis. Bladder: Partially distended. Bilateral ureteral jets are documented. IMPRESSION: 1. Dilated renal pelvis and bilateral visualized proximal ureters without overt hydronephrosis. This is similar compared to a CT dated 11/01/2022. A follow-up CT may be performed for further evaluation. 2. Small kidneys. THIS IS AN ELECTRONICALLY VERIFIED FINAL REPORT 12/02/2024 7:10 AM - Electronically signed by Golden Tenorio M.D. AG: DEIRDRE Report ID: [id number] Reading Location: [id number] Procedure Note Golden Tenorio MD - 12/02/2024 EXAM DESCRIPTION: US KIDNEY COMPLETE REASON FOR STUDY: upj obstruction, jose TECHNIQUE: Ultrasound of the kidneys and urinary bladder was performedwith grayscale imaging. COMPARISON: 11/01/2022 FINDINGS: Right Kidney: Small in size and measures 8.3 cm. Normal echogenicity. Prominent renal pelvis with dilated ureters without overthydro nephrosis. Left Kidney: Small in size and measures 8.8 cm. Normal echogenicity.Dilated renal pelvis and ureters without overt hydronephrosis. Bladder: Partially distended. Bilateral ureteral jets are documented. IMPRESSION: 1. Dilated renal pelvis and bilateral visualized proximal ureterswithout overt hydronephrosis. This is similar compared to a CT dated 11/01/2022.A follow-up CT may be performed for further evaluation. 2. Small kidneys. THIS IS AN ELECTRONICALLY VERIFIED FINAL REPORT 12/02/2024 7:10 AM - Electronically signed by Golden Tenorio M.D. AG: DEIRDRE Report ID: [id number] Reading Location: [id number] us Mirza Ryan MD IMG US PROCEDURES Final Re sult * Diagnostic Mammogram Bilateral W Ck (03/04/2024 [...] Electronically signed by: Gabbi Gomes MD Lis Thomasdimitri Rodriguez NP IMG MAMMO PROCEDURES Final Result * Dexa Axial Skeleton Bone Density 1 or 2 Site (02/15/2023 1:25 PM CDT) Anatomical Region Laterality Modality Body N/A Mammography 02/16/2023 11:5 4 AM CDT Narrative 02/16/2023 11:55 AM CDT EXAM DESCRIPTION: DEXA AXIAL SKELETON BONE DENSITY 1 OR MORE SITES REASON FOR STUDY: 77 y/o year old F with given history of: History of osteoporosis Eligibility Counselor/Model: Pawzii A ([id number]/N [id number]) CLINICAL INFORMATION: Current height: 60 inches Maximum [...] Octaviano Carrillo M.D. MF: JAYY Report ID: [id number] Reading Location: [place] [address] Procedure Note Octaviano Carrillo MD - 02/16/2023 EXAM DESCRIPTION: DEXA AXIAL SKELETON BONE DENSITY 1 OR MORE SITES REASON FOR STUDY: 77 y/o year old F with given history of: History of osteoporosis Eligibility Counselor/Model: Pawzii A ([id number]/N [id number]) CLINICAL INFORMATION: Current height: 60 inches Maximum [...] Octaviano Carrillo M.D. MF: JAYY Report ID: [id number] Reading Location: [place] [address] Kayley Chavarria NP IMG DXA PROCEDURES Final Resu lt from Last 3 Months or Most Recently Relevant to Health Maintenance Insurance UHC MEDICARE ADVANTAGE [facility] MEDICARE ADVANTAGE Advance Directives For more information, please contact: [phone] * Full Code (Latest Code Status on File) Date Activated Date Inactivated Comments 05/29/2021 11:53 AM 05/29/2021 7:13 PM Care Teams Casing Cooker Relationship Specialty Start Date End Date Jori Espinoza MD [address] [place] [address] KALYAN GOVEA [address] PCP - General Internal Medicine 10/19/19 Aft, Vicki Sam MD PhD [address] [place] [address] KALYAN GOVEA [address] Surgeon Surgical Oncology 05/16/21 Erin Markham MD [address] [facility] [address] [place] [address] Oven Roaster Obstetrics and Gynecology 05/16/21 Siria Enriquez NP [address] [facility] [address] [address] Nurse Practitioner Medical Oncology 08/27/23 Darleen Bailey MD [address] [facility] [address] [place] [address] Radiation Oncologist Radiation Oncology 03/18/24 Mirza Ryan MD [address] [facility] [address] [place] [address] Consulting Physician Nephrology 09/01/24 Alaina Villalba MD [address] [place] [address] Consulting Physician Urology 12/04/24
--- OUTSIDE RECORDS SUMMARY | 2025-02-12 11:19 | XMS_ITS | Encounter Summary ---
Author Organization [facility] Healthcare Address [address] [place] [address] Care Team Providers Care Thiokol Operator Name Role Phone Clint Rodriguez MD Primary Care Provider [phone] Lucio Gonzales MD Unavailable [phone] Jori Espinoza MD Primary Care Provider + Darleen Bailey MD Unavailable [phone] Cuong Figueroa DO Unavailable [phone] Dickson, Vicki Sam MD PhD Unavailable [phone] Erin Markham MD Unavailable [phone] Siria Enriquez NP Unavailable + [phone] Darleen Bailey MD Unavailable [phone] Mirza Ryan MD Unavailable [phone] Alaina Villalba MD Unavailable Encounter Details Date Type Department Care Team (Late st Contact Info) Description 04/11/2018 Documentation [facility] Social Work [address] [place] [address] Keeley Rogel, [facility] [address] [facility] [address] [place] [address] Social History Tobacco Use Types Packs/Day Years Used Date Smoking Tobacco: Never Smokeless Tobacco: Never Alcohol Use Standard Drinks/Week Comments No 0 (1 standard drink = 0.6 oz pur e alcohol) Comments Unknown Sex and Gender Information Value Date Recorded Sex Assigned at Not on file 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 Sara Brown RN generated from [facility] 04/13/2014 04/13/2014 04/10/2021 3:32 PM C DT documented as of this encounter Care Teams Thiokol Operator Relationship Specialty Start Date End Date Clint Rodriguez MD [address] [address] PCP - General 10/19/16 10/18/19 Jori Espinoza MD [address] [facility] [place] [address] PCP - General Internal Medicine 10/19/19 Lucio [place] MD [address] [address] Community Case Manager Cardiology 04/28/19 12/01/24 Darleen Bailey MD [address] [facility] [place] [place] [address] Radiation Oncologist Radiation Oncology 05/16/21 Cuong Figueroa DO [address] [place] [address] Medical Oncologist/Manager Product Design Hematology and Oncology 05/16/21 08/26/23 GenarotVicki MD PhD [address] [place] [address] Surgeon Surgical Oncology 05/16/21 Erin Markham MD [address] [address] Nib Finisher Obstetrics and Gynecology 05/16/21 Siria Enriquez NP [address] [place] [address] Nurse Practitioner Medical Oncology 08/27/23 Darleen Bailey MD [address] [place] [address] Radiation Oncologist Radiation Oncology 03/18/24 Mirza Ryan MD [address] [address] Consulting Physician Nephrology 09/01/24 Alaina Villalba MD [address] SURG UROLOGY [place], [place] [address] Consulting Physician Urology 12/04/24 documented as of this encounter
--- OUTSIDE RECORDS SUMMARY | 2025-02-12 11:19 | XMS_ITS ---
Author Organization [facility] al Address [address] [place] [address] Care Team Providers Care Victims Advocate Clerk/Specialist Name Role Phone Jori Espinoza MD Primary Care Provider + Aft, Vicki Sam MD PhD Unavailable [phone] Erin Markham MD Unavailable [phone] Siria Enriquez ASBESTOS SHINGLE ROOFER Unavailable [phone] Darleen Bailey MD Unavailable [phone] Mirza Ryan MD Unavailable [phone] Alaina Villalba MD Unavailable Active Problems Problem Noted Date Diagnosed Date [...] from 04/11/2021:Stage IA(pT1c, pN0(sn), cM0, G3, ER+, MO+, HER2+) - Signed by Darleen Bailey MD [...] 08/06/2022 PACLItaxel (TAXOL) IVPB in 250 mLtrastuzumab- robin ([facility])tras [facility] IVPB Therapy Complete Cuong Figueroa DO 17 [...] from the original note were not included. [address], [address] [place] [id number] This Survivorship Care Plan is a cancer [...] Information: Primary Care Physician Jori Espinoza MD [phone] Surgeon Vicki Forman MD [phone] Radiation Oncologist Darleen Bailey MD [phone] Medical Oncologist Cuong Figueroa DO [phone] Plastic Surgeon Vicki Forman MD [phone] Treatment Summary Cancer Diagnosis Information Diagnosis Malignant neoplasm of upper-outer quadrant of right breast in female, estrogen receptor positive (CMS/HCC) (HCC) Diagnosis date 02/20/2021 Staging information Cancer Staging Malignant neoplasm of upper-outer quadrant of right breast in female, estrogen receptor positive (CMS/HCC) (HCC) Staging form: Breast, AJCC 8th Edition - Pathologic stage from 04/11/2021: Stage IA (pT1c, pN0(sn), cM0, G3, ER+, MO+, HER2+) - Signed by Darleen Bailey MD [...] breast cancer could run in the family: Congregational heritage History of ovarian cancer in the [...] monitoring Every 3 months while on Herceptin DESKTOP ADMINISTRATOR: Erin Markham MD Pap/pelvic exam (woman only) [...] counseling may be helpful. The use of uanv-est-mxmmoit lubricants may lessen painful intercourse. Talk with [...] Help learning to eat healthier, call the benefits director at: [facility] L[facility] Have an active lifestyle, strive for [...] man. Resources you may be interested in: [facility] A National Cancer [place] [facility] http://www.[facility]/ [facility] Cancer Information Center 1st floor of [facility] [phone]. Computer access, educational material, counseling services (FREE) Cancer Resources: www.cancer.net [place] Disabilities Act: The U.S. Department of Justice provides information about the Americans with Disabilities Act (ADA). Toll free number http://www.ada.gov/ Occupational Therapy at [facility]. Improve memory and thinking following chemotherapy. Improve your performance at home, work and in the community. or Toll free www.ot.[facility]/patients Managing your weight after a cancer diagnosis: http://www.cancer.net/sites/cancer.net/files/weight_after_cancer_diagnosis.pdf National Coalition for Cancer Survivorship: http://www.canceradvocacy.org/ [place] Cancer Society Cancer Survivors Network: http://csn.cancer.org/ [employer] Cancer: https://survivorship.cancer.gov/ an online tool for cancer survivors andcaregivers created by the [place] Cancer Society and the National Cancer [place]. It provides: Information on dealing with side effects from cancer and treatment Caregivers with support and resources Practical advice about talking to friends and family about cancer Questions to ask their health care team Help understanding their rights in the workplace
--- OUTSIDE RECORDS SUMMARY | 2025-02-12 11:19 | XMS_ITS | Encounter Summary ---
Author Organization [facility] Healthcare Address [address] [place] [address] Care Team Providers Care Enhanced Environmental Operator Name Role Phone Clint Rodriguez MD Primary Care Provider [phone] Lucio Gonzales MD Unavailable Jori Espinoza MD Primary Care Provider + Darleen Bailey MD Unavailable [phone] Cuong Figueroa DO Unavailable +[phone] Dickson, Vicki Sam MD PhD Unavailable +[phone] Erin Markham MD Unavailable [phone] Siria Enriquez NP Unavailable + [phone] Darleen Bailey MD Unavailable [phone] Mirza Ryan MD Unavailable +[phone] Alaina Villalba MD Unavailable Encounter Details Date Type Department Care Team (Late st Contact Info) Description 02/12/2018 Community Orders [facility] EpicCare Link Giles Vasquez MD [address] [facility] [address] [place], [place] [id number] Pain (Primary Dx); Swelling; Phlebitis; Pain in left leg Social History Tobacco Use Types Packs/Day Years Used Date Smoking Tobacco: Never Smokeless Tobacco: Never Alcohol Use Standard Drinks/Week Comments No 0 (1 standard drink = 0.6 oz pur e alcohol) Comments Unknown Sex and Gender Information Value Date Recorded Sex Assigned at Not on file 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 Gender Identity Female 02/17/2021 9:58 AM CDT Sexual Orientation Straight 02/17/2021 9: 58 AM CDT documented as of this encounter Plan of Treatment Not on file documented as of this encounter Results * US Vein Duplex Lower Extremity Left Limited (02/12/2018 1:08 PM CDT) Anatomical Region Laterality Modality Vascular Left Ultrasound 02/12/2018 12:5 3 PM CDT Narrative 02/12/2018 4:44 PM CDT [facility] - Department of Vascular Surgery, Vascular Laboratory [address] [place] [address] Lower Extremity Venous Ultrasound Report Patient Name: ROLO GRANADOS L : 1945 (72y 10m) Study Date: 02/12/2018 12:53:41 PM Gender: F Tech: [place] Location: Ref.Physician: GILES VASQUEZ Height(Cm): BSA: Weight(Kg): [...] Phlebitis Pain in left leg. Findings: Performing Manager Publishing: Danna Beltran RVT. Left: Venous Doppler signals [...] Electronically Signed By: Niraj Teran MD [facility] 2018-02-12 16:44:22 CDT CC: CC: Procedure Note Niraj Teran MD - 02/12/2018 [facility] - Department of Vascular Surgery,Vascular Laboratory [address] [place] [address] Lower Extremity Venous Ultrasound Report Patient Name: ROLO GRANADOS LPatient ID: [id number] : 1945 (72y 10m)Study Date: 02/12/2018 12:53:41 PM Gender: FAccession #: [id number] Tech: IALocation: Ref.Physician: Al VASQUEZ(Cm): BSA: Weight(Kg): [...] Phlebitis Pain in left leg. Findings: Performing Manager Publishing: Danna Beltran RVT. Left: Venous Doppler signals [...] Electronically Signed By: Niraj Teran MD [facility] 2018-02-12 16:44:22 CDT CC: CC: us Giles Vasquez MD IM US PROCEDURES Final Resul t documented in [...] Flag removed. Sara Brown RN generated from [facility] 04/13/2014 04/13/2014 04/10/2021 3:32 PM C DT documented as of this encounter Care Teams Enhanced Environmental Operator Relationship Specialty Start Date End Date Clint Rodriguez MD [address] [place] [address] PCP - General 10/19/16 10/18/19 Jori Espinoza MD [address] [place] [address] PCP - General Internal Medicine 10/19/19 Lucio Gonzales MD [address] [facility] [address] [place] [address] Batch Mixer Operator Cardiology 04/28/19 12/01/24 Darleen Bailey MD [address] [place] [address] Radiation Oncologist Radiation Oncology 05/16/21 Cuong Figueroa DO [address] [place] [address] Medical Oncologist/Maintenance Advisor Hematology and Oncology 05/16/21 08/26/23 Aft, Vicki Sam MD PhD [address] [place] [address] Surgeon Surgical Oncology 05/16/21 Erin Markham MD [address] [address] Combiner Operator Obstetrics and Gynecology 05/16/21 Siria Enriquez NP [address] [place] [address] Nurse Practitioner Medical Oncology 08/27/23 Darleen Bailey MD [address] [place] [address] Radiation Oncologist Radiation Oncology 03/18/24 Mirza Ryan MD [address] [address] Consulting Physician Nephrology 09/01/24 [place] [address] [place] [address] SURG UROLOGY [place], [place] [id number] Consulting Physician Urology 12/04/24 documented as of this encounter
--- OUTSIDE RECORDS SUMMARY | 2025-02-12 11:19 | XMS_ITS | Encounter Summary ---
Author Organization [facility] Address [address] [place] [address] Phone Care Team Providers Care Noodle Maker Name Role Phone Lucio Gonzales MD Unavailable Jori Espinoza MD Primary Care Provider + Darleen Bailey MD Unavailable [phone] Cuong Figeuroa DO Unavailable [phone] Aft, Vicki Sam MD PhD Unavailable [phone] Erin Markham MD Unavailable [phone] Siria Enriquez NP Unavailable + [phone] Darleen Bailey MD Unavailable [phone] Mirza Ryan MD Unavailable [phone] Alaina Villalba MD Unavailable Encounter Details Date Type Department Care Team (Late st Contact Info) Description 09/18/2021 Social Work [facility] Physicians [facility] Oncology [address] [place] [address] [address] [place] [address] Schultz, Kaisey, SHEET METAL WELDER Social History Tobacco Use Types Packs/Day Years [...] and Family Not on file 06/05/2019 Attends Sikh Services Not on file 06/05 Active Member [...] on file Legal Sex Female 1:50 AM SOLE RUFFER Gender Identity Female 02/17/2021 9:58 AM CDT Sexual Orientation Straight 02/17/2021 9: 58 AM CDT 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 Not on file Not on file Not on file documented as of this encounter Plan of Treatment Not on file documented as of this encounter Visit Diagnoses Not on filedocumented in this encounter Care Teams Noodle Maker Relationship Specialty Start Date End Date Jori Espinoza MD [address] [facility] [place] [address] PCP - General Internal Medicine 10/19/19 Lucio Gonzales MD Firer Tunnel Kiln Cardiology 04/28/19 12/01/24 Darleen Bailey MD [address] [facility] [place] [address] Radiation Oncologist Radiation Oncology 05/16/21 Cuong Figueroa DO [address] [place] [address] Medical Oncologist/Security Ambassador Hematology and Oncology 05/16/21 08/26/23 AftVicki MD PhD [address] [place] [address] Surgeon Surgical Oncology 05/16/21 Erin Markham MD [address] [address] Cardiac Exercise Physiologist Obstetrics and Gynecology 05/16/21 Siria Enriquez NP [address] [place] [address] [address] [place], [place] [address] Nurse Practitioner Medical Oncology 08/27/23 Darleen Bailey MD [address] [place] [address] Radiation Oncologist Radiation Oncology 03/18/24 Mirza Ryan MD [address] [facility] [address] [address] Consulting Physician Nephrology 09/01/24 Alaina Villalba MD [address] [place] [address] Consulting Physician Urology 12/04/24 documented as of this encounter
--- OUTSIDE RECORDS SUMMARY | 2025-02-12 11:20 | XMS_ITS | Encounter Summary ---
Author Organization [employer] Address [address] [place] [address] Care Team Providers Care Auto Body Estimator Name Role Phone Thomas Akbar MD Primary [...] on file Legal Sex Female 4:40 AM EXPERIMENTAL ASSEMBLER Gender Identity Not on file Sexual Orientation Not on file documented as of this encounter Plan of Treatment Not on file documented as of this encounter Visit Diagnoses Not on filedocumented in this encounter Care Teams Auto Body Estimator Relationship Specialty Start Date End Date Thomas Akbar MD [address] [place] [address] PCP - General 07/12/15 documented as of this encounter
--- OUTSIDE RECORDS SUMMARY | 2025-02-12 11:20 | XMS_ITS | Encounter Summary ---
Author Organization [employer] Address [address] [place] [address] Care Team Providers Care Agricultural Equipment Sales Engineer Name Role Phone Thomas Akbar MD Primary [...] file Legal Sex Female 4:40 AM OUTSIDE SALES ENGINEER Gender Identity Not on file Sexual Orientation Not on file documented as of this encounter Plan of Treatment Not on file documented as of this encounter Visit Diagnoses Not on filedocumented in this encounter Care Teams Agricultural Equipment Sales Engineer Relationship Specialty Start Date End Date Thomas Akbar MD [address] [facility] [address] [place] [address] PCP - General 07/12/15 documented as of this encounter
--- OUTSIDE RECORDS SUMMARY | 2025-02-12 11:20 | XMS_ITS | Encounter Summary ---
Author Organization [employer] Address [address] [place] [address] Care Team Providers Care Sprinkling Truck Driver Name Role Phone Thomas Akbar MD Primary [...] on file Legal Sex Female 4:40 AM NEON PUMPER Gender Identity Not on file Sexual Orientation Not on file documented as of this encounter Plan of Treatment Not on file documented as of this encounter Visit Diagnoses Not on filedocumented in this encounter Care Teams Sprinkling Truck Driver Relationship Specialty Start Date End Date Thomas Akbar MD [address] [facility] [address] [place] [address] PCP - General 07/12/15 documented as of this encounter
--- OUTSIDE RECORDS SUMMARY | 2025-02-12 11:20 | XMS_ITS | Encounter Summary ---
Author Organization [employer] Address [address] [place] [address] Care Team Providers Care Test Facility Engineer Name Role Phone Thomas Akbar MD Primary Care Provider [phone] Encounter Details Date Type Department Care Team (Late st Contact Info) Description 03/07/1999 Outpatient Historical [facility] Jeb Mancia NO ADDRESS ON FILE Social History Tobacco Use Types Packs/Day Years Used Date Smoking Tobacco: Never Assessed Comments Unknown Sex and Gender Information Value Date Recorded Sex Assigned at Not on file Legal Sex Female 4:40 AM SALES BRANCH MANAGER Gender Identity Not on file Sexual Orientation Not on file documented as of this encounter Plan of Treatment Not on file documented as of this encounter Visit Diagnoses Not on filedocumented in this encounter Care Teams Test Facility Engineer Relationship Specialty Start Date End Date Thomas Akbar MD [address] [place] [address] PCP - General 07/12/15 documented as of this encounter
--- OUTSIDE RECORDS SUMMARY | 2025-02-12 11:20 | XMS_ITS | Encounter Summary ---
Author Organization [employer] Address [address] [place] [address] Care Team Providers Care Can Patcher Name Role Phone Thomas Akbar MD Primary [...] on file Legal Sex Female 4:40 AM SQUARE SHEAR OPERATOR Gender Identity Not on file Sexual Orientation Not on file documented as of this encounter Plan of Treatment Not on file documented as of this encounter Visit Diagnoses Not on filedocumented in this encounter Care Teams Can Patcher Relationship Specialty Start Date End Date Thomas Akbar MD [address] [facility] [address] [place] [address] PCP - General 07/12/15 documented as of this encounter
--- OUTSIDE RECORDS SUMMARY | 2025-02-12 11:20 | XMS_ITS | Encounter Summary ---
Author Organization [employer] Address [address] [place] [address] Care Team Providers Care Gluing Machine Offbearer Name Role Phone Thomas Akbar MD Primary Care Provider [phone] Encounter Details Date Type Department Care Team (Late st Contact Info) Description 11/16/1998 Outpatient Historical [facility] Jeb Mancia NO ADDRESS ON FILE Social History Tobacco Use Types Packs/Day Years Used Date Smoking Tobacco: Never Assessed Comments Unknown Sex and Gender Information Value Date Recorded Sex Assigned at Not on file Legal Sex Female 4:40 AM LAMP ASSEMBLER Gender Identity Not on file Sexual Orientation Not on file documented as of this encounter Plan of Treatment Not on file documented as of this encounter Visit Diagnoses Not on filedocumented in this encounter Care Teams Gluing Machine Offbearer Relationship Specialty Start Date End Date Thomas Akbar MD [address] [place] [address] PCP - General 07/12/15 documented as of this encounter
--- OUTSIDE RECORDS SUMMARY | 2025-02-12 11:20 | XMS_ITS | Encounter Summary ---
Author Organization [employer] Address [address] [place] [address] Care Team Providers Care Oil Field Roustabout Name Role Phone Thomas Akbar MD Primary [...] on file Legal Sex Female 4:40 AM REGIONAL ECONOMIC LIAISON Gender Identity Not on file Sexual Orientation Not on file documented as of this encounter Plan of Treatment Not on file documented as of this encounter Visit Diagnoses Not on filedocumented in this encounter Care Teams Oil Field Roustabout Relationship Specialty Start Date End Date Thomas Akbar MD [address] [place] [address] PCP - General 07/12/15 documented as of this encounter
--- OUTSIDE RECORDS SUMMARY | 2025-02-12 11:20 | XMS_ITS | Encounter Summary ---
Author Organization [employer] Address [address] [place] [address] Care Team Providers Care Hydraulic Chair Assembler Name Role Phone Thomas Akbar MD Primary [...] on file Legal Sex Female 4:40 AM METAL SHEET ROLLER OPERATOR Gender Identity Not on file Sexual Orientation Not on file documented as of this encounter Plan of Treatment Not on file documented as of this encounter Visit Diagnoses Not on filedocumented in this encounter Care Teams Hydraulic Chair Assembler Relationship Specialty Start Date End Date Thomas Akbar MD [address] [facility] [address] [place] [address] PCP - General 07/12/15 documented as of this encounter
--- OUTSIDE RECORDS SUMMARY | 2025-02-12 11:20 | XMS_ITS | Encounter Summary ---
Author Organization [facility] Address [address] [place] [address] Phone Care Team Providers Care Children'S Court Magistrate Name Role Phone Lucio Gonzales MD Unavailable Jori Espinoza MD Primary Care Provider + Darleen Bailey MD Unavailable [phone] Cuong Figueroa DO Unavailable [phone] Dickson, Vicki Sam MD PhD Unavailable [phone] Erin Markham MD Unavailable [phone] Siria Enriquez NP Unavailable + [phone] Darleen Bailey MD Unavailable [phone] Mirza Ryan MD Unavailable [phone] Alaina Villalba MD Unavailable Encounter Details Date [...] and Family Not on file 06/05/2019 Attends Church Services Not on file 06/05 Active Member of Clubs or Organizations Not on f ile 06/05/2019 Attends Club or Organization Meetings Not on vamshi e 06/05/2019 Marital Status 06/05/2019 Comments No Sex and Gender Information Value Date Recorded Sex Assigned at Not on file Legal Sex Female 1:50 AM RIVET TESTER Gender Identity Female 02/17/2021 9:58 AM [...] Flag removed. Sara Brown RN generated from [facility] 04/13/2014 04/13/2014 04/10/2021 3:32 PM C DT documented as of this encounter Care Teams Children'S Court Magistrate Relationship Specialty Start Date End Date Jori Espinoza MD [address] [facility] [place] [address] PCP - General Internal Medicine 10/19/19 Lucio Gonzales MD Television News Anchor Cardiology 04/28/19 12/01/24 Darleen Bailey MD [address] [facility] [place] [address] Radiation Oncologist Radiation Oncology 05/16/21 Cuong Figueroa DO [address] [place] [address] Medical Oncologist/Yield Analyst Hematology and Oncology 05/16/21 08/26/23 AftVicki MD PhD [address] [place] [address] Surgeon Surgical Oncology 05/16/21 Erin Markham MD [address] [address] Satellite Manager Obstetrics and Gynecology 05/16/21 Siria Enriquez NP [address] [place] [address] Nurse Practitioner Medical Oncology 08/27/23 Darleen Bailey MD [address] [place] [address] Radiation Oncologist Radiation Oncology 03/18/24 Mirza Ryan MD [address] [address] Consulting Physician Nephrology 09/01/24 [place] [address] [place] [address] [place] [address] Consulting Physician Urology 12/04/24 documented as of this encounter
--- OUTSIDE RECORDS SUMMARY | 2025-02-12 11:20 | XMS_ITS | Clinical Summary ---
Author Organization [facility] al Address [address] [place] [address] Care Team Providers Care Hydraulic Mechanic Name Role Phone Jori Espinoza MD Primary Care Provider + Aft, Vicki Sam MD PhD Unavailable [phone] Erin Markham MD Unavailable [phone] Siria Enriquez PEDIATRIC ONCOLOGY NURSE Unavailable [phone] Darleen Bailey MD Unavailable [phone] Mirza Ryan MD Unavailable [phone] Alaina Villalba MD Unavailable Allergies Active Allergy Reactions Criticality Noted Date Comments Clindamycin Other (See comments) Low 04/28/2019 other Iodine Anaphylaxis,Swelling High 02/16/2013 Cephalexin Swelling Medium 02/21/2023 Nitrofurantoin Monohyd/M-Cryst Swelling Medium 04/28 Medications amLODIPine (NORVASC) 2.5 mg tablet Take 1 tablet (2.5 mg total) by mouth daily Active cholecalciferol , vitamin D3, (VITAMIN D3 ORAL) Take 75 mg by mouth medical data entry clerk before breakfast Active dextroamphetami ne ER (DEXEDRINE [...] 1 tablet (50 mcg total) by mouth medical data entry clerk before breakfast Active exemestane (AROMASIN) 25 mg [...] from 04/11/2021:Stage IA(pT1c, pN0(sn), cM0, G3, ER+, MN+, HER2+) - Signed by Darleen Bailey MD [...] Description 12/29/2024 9:20 AM CDT Office Visit [facility]) [facility] Urology [address] [facility] [address] 11th [place] [address] [place] [address] Alaina Villalba MD UPJ (ureteropelvic junction) obstruction (Primary Dx) 12/02/2024 12:[address] [facility] Lab [address] [place] [id number] Stage 3b chronic kidney disease (HCC) 12/02/2024 Results Follow-Up [facility] Nephrology at [address] [place] [phone] Mirza Ryan MD US Kidney Complete 12/02/2024 Results Follow-Up [facility] Nephrology at [address] [place] [phone] Mirza Ryan MD Renal function panel, eGFR 11/25/2024 2:12 PM CDT - 11/25/2024 11:59 PM CDT Hospital Encounter [facility] Ultrasound [facility] [place] [address] Stage 3b chronic kidney disease (HCC) Discharge Disposition: Discharge to home or self care from Last 3 Months Immunizations Immunization Administration Dates Next Due Pfizer SARS-CoV-2 Monovalent Vaccination (12+ Yrs) PURPLE 10/09/2020,09/17/2020 Surgical History Surgery Date Site/Laterality Comments KNEE ARTHROPLASTY 07/22/2005 - 07/21/2006 Right knee replacement VAGINAL DELIVERY 07/22/1966 - 07/21/1967 x2 REPLACEMENT TOTAL KNEE 2006, 2013 Left L knee replacement revision WRIST FRACTURE SURGERY age 70 Left l radius fracture BREAST BIOPSY 02/22/2021 Right BREAST LUMPECTOMY 03/22/2021 - 04/20/2021 Right [facility] APPENDECTOMY age 50 Appendicitis: Appendectomy HERNIA REPAIR age 56 hernia: surgery BUNIONECTOMY BREAST LUMPECTOMY PORT PLACEMENT CHEST >5 YEARS 05/29/2021 N/A FRACTURE SURGERY JOINT REPLACEMENT Medical History Medical History Date Comments Hernia of abdominal cavity 1990 herni a Cellulitis 2012 R leg cellulitis 1967 x2 Delayed emergence from general anesthesia Sleep apnea Hypertension GERD (gastroesophageal reflux disease) Hypothyroidism Breast cancer (HCC) MS (multiple sclerosis) (HCC) Iron deficiency anemia Aortic stenosis Malignant neoplasm of upper- outer quadrant of right breast in female, estrogen receptor positive (HCC) 03/08/2021 Menopause ovarian failure Osteoporosis Cataract Autoimmune disease Chronic renal disease, stage IV ([facility]) 09/03/2023 Heart murmur Pneumonia Family History Medical History Relation Name Comments Arrhythmia Brother 1 Shaq Keita Family history of cardiac pacemaker - (Added by TW Conv) Heart attack Brother 1 Shaq Keita Early Brother 2 Chandu Kieta Arthritis Father Edgar Keita COPD Father Edgar Keita COPD; Coronary artery disease Father Edgar Rusho nary artery disease; Emphysema Father Edgar Keita Arthritis Mother Carmen Keita COPD Mother Carmen Keita COPD; Coronary artery [...] and Family Not on file 06/05/2019 Attends Synagogue Services Not on file 06/05 Active Member [...] on file Legal Sex Female 1:50 AM PIANO STRINGER Gender Identity Female 02/17/2021 9:58 AM CDT [...] Density Scan 02/15/2025 02/15/2023, 01/15/2018 Influenza Vaccine (#1) 2025 Breast Cancer Screening-Mammogram Discontinued 03/04/2024, 02/27/2023, 02/27/2022, Additional history exists Medical Devices Implanted Type Area Organic Extractions Technician Device Identifier Shelf Expiration Date Model / Serial / Lot Bilateral Total Knee Arthroplasty Bilateral: Knee Left Wrist Orif Wrist [employer] [id number] Xcela 8fr 1.6mm 1 Lumen Power Injectable Attach Catheter Fill - [id number] Implanted:Qty: 1 on 05/29/2021 at [facility] [employer] 01/30/2026 [id number] / / [id number] Explanted Type Area Organic Extractions Technician Device Identifier Shelf Expiration Date Model / Serial / Lot Bard Peripheral Vascular [id number] Ghiatas 20ga 15cm 5cm Beaded Needle Breast Wire Localization - [id number] Implanted:Qty: 1 on 04/11/2021 at [facility] Explanted:Qty: 1 on 04/11/2021 Right: Breast [employer] [id number] / / Bard [employer] 31646 Ghiatas 20ga 15cm 5cm Beaded Needle Breast Wire Localization - [id number] Implanted:Qty: 1 on 04/11/2021 at [facility] Explanted:Qty: 1 on 04/11/2021 Right: Breast [employer] [id number] / / Procedures Procedure Name Priority Date/Time [...] Negative Negative Lot Number 0 Urine 12/29/2024 9:58 AM CDT Alaina Villalba MD POINT OF [...] was last reviewed 2021. Testing performed by: [address] [address] Blood 12/02/2024 12:5 8 PM CDT 12/02/2024 1:39 PM CDT Mirza Ryan MD LAB BLOOD ORDERABLES Final Result Performing Organization Address City/State/[facility] Co de Phone Number [facility] Department [place] [address] * (ABNORMAL) Renal function panel (12/02/2024 12:58 PM CDT) Sodium 141 135 - 145 mmol/L Comment:Testing performed by : [address] [address] Potassium, pl 4.2 3.3 - 4.9 mmol/L [facility] Comment:Testing performed by : [address] [address] Chloride 105 97 - 110 mmol/L [facility] Comment:Testing performed by : [address] [address] CO2 26 22 - 32 mmol/L [facility] Comment:Testing performed by : [address] [address] Anion gap 10 2 - 15 mmol/L [facility] Comment:Testing performed by : [address] [address] BUN 28(H) 6 - 25 mg/dL [facility] Comment:Testing performed by : [address] [place] [address] Creatinine 1.61(H) 0.60 - 1.10 mg/dL [facility] Comment:Testing performed by : [address] [address] Glucose 100 70 - 199 mg/dL [facility] [...] was last revised 2022. Testing performed by: [address] [address] Calcium 10.5(H) 8.5 - 10.3 mg/dL [facility] Comment:Testing performed by : [address] [address] Phosphorus, pl 2.5 2.3 - 4.5 mg/dL [facility] Comment:Testing performed by : [address] [address] Albumin 4.4 3.5 - 5.0 g/dL [facility] Comment:Testing performed by : [address] [address] Blood 12/02/2024 12:5 8 PM CDT 12/02/2024 1:39 PM CDT us Mirza Ryan MD LAB BLOOD ORDERABLES Final Result [facility] [address] [facility] Department of Laboratories [place], [place] [id number] * US Kidney Complete (11/25/2024 2:35 PM [...] Golden Tenorio M.D. AG: DEIRDRE Report ID: [id number] Reading Location: [id number] Procedure Note Gloden Tenorio MD - 12/02/2024 EXAM DESCRIPTION: US [...] Golden Tenorio M.D. AG: DEIRDRE Report ID: [id number] Reading Location: [id number] Mirza Ryan MD IMG US PROCEDURES Final [...] by: Gabbi Gomes MD Lis Rodriguez NP IMG MAMMO PROCEDURES Final Result [...] with given history of: History of osteoporosis Organic Extractions Technician/Model: Futurlink A (S/N [id number]) CLINICAL INFORMATION: Current height: 60 inches Maximum [...] Octaviano Carrillo M.D. MF: JAYY Report ID: [id number] Reading Location: [place] [address] Procedure Note Octaviano Carrillo MD - 02/16/2023 EXAM DESCRIPTION: DEXA AXIAL SKELETON BONE DENSITY 1 OR MORE SITES REASON FOR STUDY: 77 y/o year old F with given history of: History of osteoporosis Organic Extractions Technician/Model: Futurlink A (S/N [id number]) CLINICAL INFORMATION: Current height: 60 inches Maximum [...] Octaviano Carrillo M.D. MF: JAYY Report ID: [id number] Reading Location: [place] [address] Kayley Chavarria NP IMG DXA PROCEDURES Final Resu lt from Last 3 Months or Most Recently Relevant to Health Maintenance Insurance [employer] Member Subscriber Plan / Payer (Ef fective 2019-Present) Name:Stacy Crocker Relation to Subscriber:Self Name:Stacy Crocker Payer ID:[id number] (NAIC) Type:[employer] Address: [place] [id number] Advance Directives For more information, please contact: [phone] * Full Code (Latest Code Status on File) Date Activated Date Inactivated Comments 05/29/2021 11:53 AM 05/29/2021 7:13 PM Care Teams Hydraulic Mechanic Relationship Specialty Start Date End Date Jori Espinoza MD [address] [place] [address] PCP - General Internal Medicine 10/19/19 Aft, Vicki Sam MD PhD [address] [place] [address] Surgeon Surgical Oncology 05/16/21 Erin Markham MD [address] [address] Network Intelligence Analyst Obstetrics and Gynecology 05/16/21 Siria Enriquez NP [address] [facility] [address] [id number] Nurse Practitioner Medical Oncology 08/27/23 Darleen Bailey MD [address] [place] [address] [address] [place] [address] Radiation Oncologist Radiation Oncology 03/18/24 Mirza Ryan MD [address] [address] Consulting Physician Nephrology 09/01/24 Alaina Villalba MD [address] [place] [address] Consulting Physician Urology 12/04/24
--- OUTSIDE RECORDS SUMMARY | 2025-02-12 11:20 | XMS_ITS | Encounter Summary ---
Author Organization [email or web address] Address [address] [place] [address] Care Team Providers Care Assembler Product Name Role Phone Thomas Akbar MD Primary [...] on file Legal Sex Female 4:40 AM TRUMPET TEACHER Gender Identity Not on file Sexual Orientation Not on file documented as of this encounter Plan of Treatment Not on file documented as of this encounter Visit Diagnoses Not on filedocumented in this encounter Care Teams Assembler Product Relationship Specialty Start Date End Date Thomas Akbar MD [address] [place] [address] [place] [address] PCP - General 07/12/15 documented as of this encounter
--- OUTSIDE RECORDS SUMMARY | 2025-02-12 11:20 | XMS_ITS | Encounter Summary ---
Author Organization [employer] Address [address] [place] [address] Care Team Providers Care Vacation Sales Advisor Name Role Phone Thomas Akbar MD Primary Care Provider [phone] Encounter Details Date Type Department Care Team (Late st Contact Info) Description 01/27/1999 Outpatient Historical [facility] Al Sanchez Social History Tobacco Use Types Packs/Day Years Used Date Smoking Tobacco: Never Assessed Comments Unknown Sex and Gender Information Value Date Recorded Sex Assigned at Not on file Legal Sex Female 4:40 AM ORDER SELECTOR Gender Identity Not on file Sexual Orientation Not on file documented as of this encounter Plan of Treatment Not on file documented as of this encounter Visit Diagnoses Not on filedocumented in this encounter Care Teams Vacation Sales Advisor Relationship Specialty Start Date End Date Thomas Akbar MD [address] [facility] [address] [place] [address] PCP - General 07/12/15 documented as of this encounter
--- OUTSIDE RECORDS SUMMARY | 2025-02-12 11:20 | XMS_ITS | Encounter Summary ---
Author Organization [employer] Address [address] [place] [address] Care Team Providers Care Early Interventionist Name Role Phone Thomas Akbar MD Primary [...] on file Legal Sex Female 4:40 AM PUBLIC HEALTH Gender Identity Not on file Sexual Orientation Not on file documented as of this encounter Plan of Treatment Not on file documented as of this encounter Visit Diagnoses Not on filedocumented in this encounter Care Teams Early Interventionist Relationship Specialty Start Date End Date Thomas Akbar MD [address] [facility] [address] [place] [address] PCP - General 07/12/15 documented as of this encounter
--- OUTSIDE RECORDS SUMMARY | 2025-02-12 11:20 | XMS_ITS | Encounter Summary ---
Author Organization [employer] Address [address] [place] [address] Care Team Providers Care Vision Specialist Name Role Phone Thomas Akbar MD Primary Care Provider [phone] Encounter Details Date Type Department Care Team (Late st Contact Info) Description 08/20/2002 Outpatient [facility] [address] [place] [address] [place] [address] Aubrey Meade MD Social History Tobacco Use Types Packs/Day Years Used Date Smoking Tobacco: Never Assessed Comments Unknown Sex and Gender Information Value Date Recorded Sex Assigned at Not on file Legal Sex Female 4:40 AM WELDING MACHINE TENDER Gender Identity Not on file Sexual Orientation Not on file documented as of this encounter Plan of Treatment Not on file documented as of this encounter Visit Diagnoses Not on filedocumented in this encounter Care Teams Vision Specialist Relationship Specialty Start Date End Date Thomas Akbar MD [address] [facility] [address] [place] [address] PCP - General 07/12/15 documented as of this encounter
--- OUTSIDE RECORDS SUMMARY | 2025-02-12 11:20 | XMS_ITS | Encounter Summary ---
Author Organization [employer] Address 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 [address] [place] [address] PCP - General 07/12/15 documented as of this encounter
--- OUTSIDE RECORDS SUMMARY | 2025-02-12 11:20 | XMS_ITS | Encounter Summary ---
Author Organization [employer] Address 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
--- OUTSIDE RECORDS SUMMARY | 2025-02-12 11:20 | XMS_ITS | Encounter Summary ---
Author Organization [employer] Address 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
--- OUTSIDE RECORDS SUMMARY | 2025-02-12 11:20 | XMS_ITS | Encounter Summary ---
Author Organization [email or web address] Address 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
--- OUTSIDE RECORDS SUMMARY | 2025-02-12 11:20 | XMS_ITS | Encounter Summary ---
Author Organization [employer] Address 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
--- OUTSIDE RECORDS SUMMARY | 2025-02-12 11:20 | XMS_ITS | Encounter Summary ---
Author Organization [employer] Address 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
--- OUTSIDE RECORDS SUMMARY | 2025-02-12 11:20 | XMS_ITS | Encounter Summary ---
Author Organization [employer] Address 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
[2025-02-12 11:31] VITALS: BP 122/75; PULSE 73; RESP 16; TEMP 36.9; O2SAT 97
--- NOTE | 2025-02-12 12:03 | ED_ITS ---
HPI - Skin/Abscess/Foreign Bdy General Chief complaint: Skin/Abscess/Foreign Body Stated complaint: spots on thighs Time Seen by Provider: 02/12/25 11:40 Source: patient and RN notes reviewed Mode of arrival: ambulatory Limitations: no limitations History of Present Illness HPI narrative: 79-year-old female presents Express Care complaining of skin lesions on her lower abdomen. Patient says she knows approximately 3 days ago. Patient's is 1 started your her right lower flank and another 1 popped up closer to her right lower abdomen. Patient denies any fevers, body aches, chills, nausea, vomiting, headaches, joint pain, muscle aches. Patient reports the lesions are nontender and non pruritic. Patient denies any burning, numbness, tingling to the lesions. Patient noticed redness, swelling and states they are weeping. Patient denies any apparent bug bites, tick bites, recent travel, or hiking recently. Patient does have a history of CKD and multiple sclerosis. Related Data Home Medications ?Medication ?Instructions ?Recorded ?Confirmed ?Last Taken ?Type lisinopril 10 1 tablet PO DAILY 08/30/19 12/19/22 03/25/20 06:00 History mg-hydrochlorothiazide 12.5 mg tablet dextroamphetamine sulfate 15 mg 15 mg PO DAILY 03/17/20 12/19/22 03/24/20 History capsule,extended release levothyroxine 50 mcg tablet 50 mcg PO DAILY 03/17/20 12/19/22 03/25/20 06:00 History (Euthyrox) metoprolol succinate 50 mg 75 mg PO DAILY 03/17/20 12/19/22 03/25/20 06:00 History tablet,extended release 24 hr alpha lipoic acid 200 mg tablet 1,200 mg PO DAILY 12/19/22 12/19/22 Unknown History amlodipine 2.5 mg tablet 2.5 mg PO DAILY 12/19/22 12/19/22 Unknown History cholecalciferol (vitamin D3) 125 75 unit PO DAILY 12/19/22 12/19/22 Unknown History mcg (5,000 unit) tablet (Vitamin D3) exemestane 25 mg tablet 25 mg PO DAILY 12/19/22 12/19/22 Unknown History levocarnitine 500 mg capsule 500 mg PO QID 05/31/23 05/31/23 Unknown History pyridoxine (vitamin B6) 200 mg 200 mg PO DAILY 12/19/22 12/19/22 Unknown History tablet,extended release vibegron 75 mg tablet (Gemtesa) 75 mg PO DAILY 12/19/22 12/19/22 Unknown History Allergies Allergy/AdvReac Type Severity Reaction Status Date / Time cephalexin (From Keflex) Allergy Unknown Verified 02/12/25 11:25 iodine Allergy Anaphylaxis Verified 02/12/25 11:25 iohexol (From contrast - CT, Allergy Anaphylaxis Verified 02/12/25 11:25 X-RAY) nitrofurantoin (From Allergy Unknown Verified 02/12/25 11:25 Macrobid) Review of Systems Review of Systems: CONSTITUTIONAL: Denies fever, chills, or sweats. EYES: Denies visual changes, redness, or discharge. ENT: Denies rhinorrhea, congestion, sore throat, or otalgia. CARDIOVASCULAR: Denies chest pain, palpitations, or edema. RESPIRATORY: Denies cough or dyspnea. GASTROINTESTINAL: Denies abdominal pain, nausea, vomiting, or diarrhea. GENITOURINARY: Denies dysuria or hematuria. SKIN: Positive for rash. Negative for itching. MUSCULOSKELETAL: Denies back pain, joint pain, or myalgia. NEUROLOGIC: Denies headache, numbness, or weakness. PSYCHIATRIC: Denies anxiety or depression. All other systems reviewed are negative, except as documented in HPI. [facility] Past Medical History Medical History (Updated 02/12/25 @ 12:17 by Vahe Lewis APRN) Cellulitis History of blood transfusion Anemia Hypothyroid Hyperthyroidism Osteoporosis Arthritis GERD (gastroesophageal reflux disease) Hiatal hernia CPAP (continuous positive airway pressure) dependence Sleep apnea Heart murmur HTN (hypertension) Multiple sclerosis Surgical History Surgical History History of bunionectomy right H/O left wrist surgery with plate History of bilateral knee replacement History of appendectomy Family History Family History Father Emphysema lung Mother Emphysema lung Sibling Heart disease Sibling Polymyositis Social History Social History Smoking status: Never smoker Alcohol intake: never Substance use: never Comments At the time of my signature, I reviewed and agree with the nursing past medical, surgical, social, and family history. There is no relevant family history pertinent to the patient complaint. Exam Narrative: GENERAL: This is a well-nourished, well-developed adult, in no apparent distress. They are non ill-appearing, nontoxic appearing. HEAD: normocephalic, atraumatic. EYES: Sclera clear/white. Conjunctiva normal. Vision is grossly intact. Extraocular movements intact EARS: External ears normal, Hearing grossly intact. NOSE: External nose normal THROAT: Mucous membranes moist, NECK: Neck supple, CARDIOVASCULAR: Regular rate and rhythm RESPIRATORY: Respiratory rate normal, respiratory effort nonlabored, no respiratory distress GASTROINTESTINAL: Abdomen soft, non-tender, nondistended. SKIN: Right flank/abdomen: To erythematous lesions present. Or his lesions located near the right lower flank measuring approximately 4 cm x 3 cm with center pain vesicular and indurated measuring approximately 1 cm long with clear drainage. No area of fluctuance, no exudate, nontender, nonpruritic. Second lesions located in the right lower abdomen measuring approximately 1.5 cm x 0.5 cm. With induration. Surrounding erythema surrounding the indurations. Lesions are hot to touch. NEURO: awake, alert, and oriented to person, place and time. There were no obvious focal neurologic abnormalities. EXTREMITIES: No joint tenderness, effusion, or edema noted. Course Course Emergency Course: Portions of this record may have been created with voice recognition software Level of Care: Express Care Visit Vital Signs Vital signs: Vital Signs Temperature 98.5 F 02/12/25 11:31 Pulse Rate 73 02/12/25 11:31 Respiratory Rate 16 02/12/25 11:31 Blood Pressure 122/75 02/12/25 11:31 Pulse Oximetry 97 02/12/25 11:31 Oxygen Delivery Room Air 02/12/25 11:31 Temperature 98.5 F 02/12/25 11:31 Pulse Rate 73 02/12/25 11:31 Respiratory Rate 16 02/12/25 11:31 Blood Pressure 122/75 02/12/25 11:31 Pulse Oximetry 97 02/12/25 11:31 Oxygen Delivery Room Air 02/12/25 11:31 Reviewed MDM - Skin/Abscess/Foreign Bdy MDM Narrative Medical decision making narrative: Patient likely has cellulitis. Will prescribe doxycycline along with mupirocin ointment. Discussed physical exam findings. Advised supportive measures and signs/symptoms to go to the ER. Pt is appropriate for outpt treatment and f/u. Differential Diagnosis Differential diagnosis: Likely abscess of skin or subcutaneous tissue, herpes zoster, cellulitis, eczema, insect bites and impetigo Critical Care Time Critical Care Time Critical Care Time: No Discharge Plan Discharge Clinical Impression: Cellulitis Patient Disposition: Home Condition: Stable Instructions: Antibiotic Form, Cellulitis (ED) Additional Instructions: Clean with soap and water only; Avoid using alcohol and peroxide. You may take Tylenol as needed for pain. Follow instructions on the bottle. Take doxycycline as directed. Please wear sunscreen for going to be outside while taking doxycycline. Apply the mupirocin ointment as directed. Please schedule a follow up visit with your personal physician for further evaluation and treatment within 3-5days Please go to the ER if you develop worsening symptoms on treatment such as redness, swelling, pain, fevers, nausea, vomiting, weakness, or any serious concerns. Patient Language: [place] Prescriptions: New doxycycline monohydrate 100 mg capsule 100 mg PO BID 7 Days Qty: 14 0RF mupirocin calcium 2 % cream 1 applic topical BID 7 Days Qty: 30 0RF No Action lisinopril-hydrochlorothiazide 10-12.5 mg Tablet 1 tablet PO DAILY amlodipine 2.5 mg tablet 2.5 mg PO DAILY exemestane 25 mg tablet 25 mg PO DAILY Gemtesa 75 mg tablet 75 mg PO DAILY pyridoxine (vitamin B6) 200 mg Tablet Extended Release 200 mg PO DAILY cholecalciferol (vitamin D3) [Vitamin D3] 125 mcg (5,000 unit) Tablet 75 unit PO DAILY alpha lipoic acid 200 mg Tablet 1,200 mg PO DAILY levocarnitine 500 mg Capsule 500 mg PO QID Rx Instructions: must administer with a meal/food hydrocodone-acetaminophen 5-325 mg tablet 1 tablet PO Q6H PRN (Reason: pain) Qty: 5 0RF prednisone 10 mg tablet 10 mg PO DIRECTED Qty: 42 0RF Rx Instructions: see taper instructions 6 tabs daily for 2 days, 5 tabs daily for 2 days, 4 tabs for 2 days, 3 tabs daily for 2 days, 2 tabs daily 2 days and 1 tab daily for 2 days triamcinolone acetonide 0.1 % ointment 1 applic topical BID Qty: 80 0RF Rx Instructions: never apply to face famotidine [Pepcid] 20 mg tablet 20 mg PO DAILY Qty: 10 0RF albuterol sulfate [Ventolin HFA] 90 mcg/actuation HFA aerosol inhaler 2 puff inhalation QID PRN (Reason: shortness of breath or wheezing) Qty: 8.5 0RF fluticasone propionate [Flonase Allergy Relief] 50 mcg/actuation spray,suspension 2 spray intranasal DAILY Qty: 1 0RF Rx Instructions: administer into each nostril dextroamphetamine sulfate 15 mg capsule, extended release 15 mg PO DAILY metoprolol succinate 50 mg tablet extended release 24 hr 75 mg PO DAILY levothyroxine [Euthyrox] 50 mcg Tablet 50 mcg PO DAILY Follow-up/Referrals: Alexis,Rolo Wright MD [Primary Care Provider] - Time of Disposition: 12:17
== END 2025-02-12 12:18 | disposition home or self-care (01) ==
PROVIDERS: PCP Internal Medicine
DX: L03.311 Cellulitis of abdominal wall (principal); I12.9 Hypertensive chronic kidney disease with stage 1 through stage 4 chronic kidney disease, or unspecified chronic kidney disease; N18.9 Chronic kidney disease, unspecified; E03.9 Hypothyroidism, unspecified; E05.90 Thyrotoxicosis, unspecified without thyrotoxic crisis or storm; M81.0 Age-related osteoporosis without current pathological fracture; M19.90 Unspecified osteoarthritis, unspecified site; K21.9 Gastro-esophageal reflux disease without esophagitis; G35 Multiple sclerosis; R01.1 Cardiac murmur, unspecified; G47.30 Sleep apnea, unspecified; Z96.653 Presence of artificial knee joint, bilateral
CPT/HCPCS: 99213; G0463